=== PATIENT | female | born 1990 | race Caucasian/White ===

== ENCOUNTER 2020-01-19 08:55 | Emergency (ER) | payer MEDICAID, SELFPAY ==
[2020-01-19 08:57] VITALS: BP 170/99; PULSE 92; RESP 17; TEMP 35.7; O2SAT 99; BMI 34.3
--- NOTE | 2020-01-19 09:08 | W.ED.GENADLT ---
HPI - General Adult General: Chief complaint: General Medical Stated complaint: RIB PAIN Time Seen by Provider: 01/19/20 08:59 History of Present Illness: HPI narrative: Patient is a 29-year-old female who comes to the ED with anxiety and stress. Patient says that she is hypochondriac and over thinks some health problems. She recently had some ultrasound imaging performed due to amenorrhea and ultrasound showed some cysts on the ovaries. They were diagnosed as ovarian cysts (told they were not cancerous) and she was stressed and worried that they were actually cancerous. She comes here today because she says she is convinced herself that she has 2 sore spots on her ribs that could possibly be signs of cancer spreading. While patient is telling me all that she is stating how anxious she is and how she knows that this is not cancer but her anxiety and stress keeps worrying that it is cancer. Patient has been prescribed Xanax for anxiety and also was given a prescription for citalopram for anxiety as well but she has not started taking it yet. Rib pain is identified as one sore spot on the skin on the left side and another sore spot on the identical opposite side right rib. Denies any trauma or injury. Patient does say that she was wearing a bra that was probably a little too tight that could have caused some of this rib soreness. Associated symptoms: Deny chest pain, dyspnea, headache(s), nausea, rash, palpitations or vomiting Review of Systems Const: Denies: fever(s), chills or fatigue Eyes: Denies: change in vision or eye discomfort ENMT: Denies: throat pain, odynophagia, nasal discharge or nasal congestion Card: Denies: chest pain, palpitations, edema, swelling of feet/ankles, dyspnea on exertion or orthopnea Resp: Denies: dyspnea, productive cough or non-productive cough GI: Denies: abdominal pain, nausea, vomiting, diarrhea, constipation or hematochezia : Denies: flank pain, dysuria or hematuria Musc: Denies: neck pain, back pain or extremity swelling Skin/Breast: Denies: rash or new lesions Neuro: Denies: headache(s), numbness in extremities or weakness in extremities Psych: Reports: anxiety PFS ED PFSH: Medical History Blood type A+ Surgical History No pertinent past surgical history Family History Grandfather Hypertension paternal Diabetes paternal Grandmother Stroke paternal Other Heart disease Social History Smoking and tobacco status: current every day smoker cigarettes [ Other cigarette details: social smoker ] Alcohol intake: current Alcohol intake frequency: few times a month Physical Exam Narrative: EXAM NARRATIVE: Though was unable to palpate any lump or tender area on both right and left rib. During my exam patient even stated she is been convincing herself that she has this pain. He is very anxious and tearful telling me about her stress and worry about getting cancer. Const: COMMON NORMALS: no acute distress, patient oriented x3, healthy appearing and alert GENERAL APPEARANCE: anxious (Patient is very anxious and worried and is getting emotional talking about her worries and fears of cancer.) HENMT: COMMON NORMALS: normocephalic HEAD & SCALP: normocephalic MOUTH: Normal oral and palatal mucosa present THROAT: posterior oropharynx normal and uvula midline Neck/C-Spine: COMMON NORMALS: supple GENERAL: Yes normal visual inspection Resp: COMMON NORMALS: normal respiratory effort, No retractions, No use of accessory muscles and clear to auscultation bilaterally AUSCULTATION: clear to auscultation bilaterally Cardio: COMMON NORMALS: regular rate, regular rhythm, S1 normal heart sound present, S2 normal heart sound present, No gallops present (Cardio), No clicks present (Cardio), No murmurs present (Cardio) and Peripheral pulses 2+ throughout RATE: regular rate RHYTHM: regular rhythm HEART SOUNDS: S1 normal heart sound present and S2 normal heart sound present PERIPHERAL PULSES: Peripheral pulses 2+ throughout GI: COMMON NORMALS: Normal to inspection, nondistended, normoactive bowel sounds present, Soft to palpation, non-tender and no masses PALPATION: Yes Soft to palpation : COMMON NORMALS: Yes no CVA tenderness BLADDER/KIDNEY EXAM: Yes no CVA tenderness Back/Pelvis: COMMON NORMALS: no CVA tenderness Extremity: COMMON NORMALS: normal to inspection Neuro: COMMON NORMALS: patient oriented x3 and moves all extremities SENSORIUM/ORIENTATION: Yes alert Psych: COMMON NORMALS: mental status grossly normal and speech normal ACTIVITY/MOTOR BEHAVIOR: Yes appropriate eye contact SPEECH: Yes normal speech MOOD & AFFECT: Yes anxious, Yes sad and Yes tearful Skin: GENERAL SKIN EXAM: dry skin Course Vital Signs: Vital signs: Vital Signs Temperature 96.2 F L 01/19/20 08:57 Pulse Rate 80 01/19/20 09:36 Respiratory Rate 16 01/19/20 09:36 Blood Pressure 127/90 01/19/20 09:36 Pulse Oximetry 97 01/19/20 09:36 MDM - General Adult MDM Narrative: Medical decision making narrative: Patient is a 29-year-old female who is very anxious and worried and concerned that to a sore spot she feels on her left and right ribs are cancer. Denies any accident or trauma causing pain. Patient was having amenorrhea and recently had an ultrasound performed and it showed some noncancerous cysts on her ovaries. Patient has been worried that they are cancerous and now presents to the ED worrying that these 2 sore spots on her rib are signs that she has cancer and spreading. Physical exam was completely normal and unremarkable. Psych exam showed a patient that was sad anxious and tearful and she was very concerned and worried that she had cancer. Patient was reassured that her rib pain was benign. Patient has not been taking her prescribed citalopram for her anxiety and depression and I I encouraged her to start taking it. Also recommended that she follow-up with PCP in the next 7 to 10 days and to try implementing at least 20 to 30 minutes of cardiovascular exercise about 4 times a week to help with stress and anxiety. Return to ED precautions given. Patient understood and agreed with plan. Discharge Plan Discharge Patient Disposition: Home Clinical Impression: Anxiety about health Condition: Stable Prescriptions: No Action No Known Home Medications RF: 0 citalopram 10 mg tablet 10 mg PO DAILY Qty: 30 RF: 6 alprazolam 0.5 mg tablet 0.5 mg PO TID PRN (Reason: anxiety) Qty: 20 RF: 0 Discharge Orders: Discharge Order (Routine); Ordered 01/19/20 Ordered By: Chaitanya Ramsey Discharge Diet: Regular Discharge Activity: Resume usual activity Patient Instructions: Anxiety (ED) Activity Restrictions/Additional Instructions: Follow-up with medical provider as directed 7-10 days. Continue taking all home medications as prescribed. Fill your prescription for your anti-depression/anxiety med and take as directed. Try to do some cardiovascular exercise such as walking for 20 to 30 minutes a day 4 days a week to help with stress and anxiety. Return to the ER or your medical provider if condition worsens. Please read and understand discharge instructions. If any questions, please ask. 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
[2020-01-19 09:28] VITALS: BP 127/90; PULSE 84; RESP 18; O2SAT 98
[2020-01-19 09:36] VITALS: BP 127/90; PULSE 80; RESP 16; O2SAT 97
== END 2020-01-19 09:36 | disposition home or self-care (01) ==
PROVIDERS: Emergency Provider Physician Assistant
DX: F41.8 Other specified anxiety disorders (principal); F17.210 Nicotine dependence, cigarettes, uncomplicated
CPT/HCPCS: 12345; 99281

== ENCOUNTER → 2020-01-20 08:10 | Outpatient (BNVA) | payer MEDICAID, SELFPAY | PROVIDERS: Visit Provider Obstetrics & Gynecology | DX: N91.2 Amenorrhea, unspecified (principal) | CPT/HCPCS: 83001; 84146; 84443; 84450 ==

== ENCOUNTER 2020-01-21 07:38 | Emergency (ER) | payer MEDICAID, SELFPAY ==
[2020-01-21 07:50] VITALS: BMI 34.3
[2020-01-21 07:56] VITALS: BP 138/97; PULSE 96; RESP 16; TEMP 37.1; O2SAT 99
--- NOTE | 2020-01-21 07:59 | ECG_ITS ---
[facility] Test Date: 2020-01-21 Pat Name: Ana Cardona Department: Room: Gender: Female Pond Supervisor: : 1990 Requested By: Gabe Hong Order Number: [id number] Jean MD: Steff Cam M.D. Measurements Intervals [place]ardo Rate: 79 P: 40 IA: 163 QRS: -10 QRSD: 106 T: 29 QT: 395 QTc: 455 Interpretive Statements SINUS RHYTHM MINIMAL VOLTAGE CRITERIA FOR LVH, CONSIDER NORMAL VARIANT [MEETS CRITERIA IN ONE OF: R(aVL), S(V1), R(V5), R(V5/V6)+S(V1)] No previous ECG available for comparison Electronically Signed On 01-21-2020 21:22:48 CDT by Steff Cam M.D. [email or web address]
--- NOTE | 2020-01-21 08:00 | XR_ITS ---
WS: [id number] Portable AP upright chest, 01/21/2020 Clinical Data: dyspnea/cough Comparison: None. Findings: No nodules, masses or effusions are seen. The heart is normal. The pulmonary vascularity is not increased. No pneumonia or pneumothorax is seen. XR/XR chest 1V portable [id number] Impression: Negative chest.
[2020-01-21 08:28] LABS: Add Urine Microscopic? NO
[2020-01-21 08:28] LABS: Basophils % 0.4 %; Eosinophils # 0.2 10^3/uL (0.0-0.8); Eosinophils % 3.8 %; Hematocrit 41.2 % (37.0-47.0); Hemoglobin 13.6 g/dL (11.5-15.3); Lymphocytes # 1.5 10^3/uL (0.8-4.8); Lymphocytes % 30.1 %; Mean Corpuscular Hemoglobin 28.3 pg (28.0-34.0); Mean Corpuscular Volume 85.8 fL (81-99); Mean Platelet Volume 9.8 fL (7.4-10.4); Monocytes # 0.3 10^3/uL (0.2-0.9); Monocytes % 6.5 %; Neutrophils # 2.92 10^3/uL (1.8-7.7); Nucleated Red Blood Cells % 0 %; Platelet Count 188 10^3/cmm (130-400); Red Cell Distribution Width 11.8 % (12.1-15.1)
[2020-01-21 08:32] LABS: ABG PCO2 28.9 mmHg (35-45); ABG PH Result 7.49 (7.35-7.45); Arterial Blood Gas Hematocrit 44.5 % (37-47); Base Excess ABG -0.5 mmol/L (-2.0-2.0); Blood Gas Allen Test Pos; Blood Gas Sample Type Arterial; Carboxyhemoglobin 0.9 %THgb (0.4-20.1); HCO3 ABG 21.8 mmol/L (22-26); HGB O2 Sat 97.8 % (95-100); Ionized Calcium Level - ABG 1.2 mmol/L (1.1-1.4); Methemoglobin 0.8 % (0.4-1.5); Oxygen Saturation ABG 99.5; Total Hemoglobin 14.5 g/dL (12-16)
[2020-01-21 08:33] LABS: Blood Gas Sample Site Radial, left
[2020-01-21 08:36] VITALS: O2SAT 97
--- NOTE | 2020-01-21 08:36 | ED_ITS ---
HPI - Chest Pain General: Chief Complaint: Chest Pain Stated Complaint: left side pain Time Seen by Provider: 01/21/20 07:56 History of Present Illness: HPI narrative: 29-year-old female comes in to the ER, per her words I have convinced myself I have cancer. She admits to having a high degree of anxiety she has Xanax which she has not taken for it, she has also recently been prescribed another medication which she has not started because she had listened to the potential side effects and thought they were too serious to begin but she did cannot tell me the name of it. She is hyperventilating when I see her. She is not had any fever sweats or chills she has been frequently short of breath. She has chest pain which is worse with palpation. She is convinced she has some nodules and tender areas in the left breast that are cancer. MD complaint: chest pain Onset (ago): week(s) Timing of current episode: constant Prior episodes: Yes Onset: other (Palpation) Pain location: left chest Pain radiation: none Severity: moderate Quality: sharp Exacerbating factors: palpation Context: other (Anxiety) Associated symptoms: Reports sense of impending doom; Deny abdominal pain, diaphoresis, dyspnea, fever(s), leg edema, nausea, palpitations, syncope or vomiting Treatment prior to arrival: none Review of Systems Const: Denies: fever(s) or diaphoresis ENMT: Denies: throat pain, ear or mastoid pain, nasal discharge or nasal congestion Card: Denies: palpitations or syncope Resp: Denies: dyspnea GI: Denies: abdominal pain, nausea or vomiting : Denies: flank pain, difficulty voiding, dysuria, urinary frequency or urinary urgency Skin/Breast: Denies: rash or pruritus PFS ED PFSH: Medical History Blood type A+ Surgical History No pertinent past surgical history Family History Grandfather Hypertension paternal Diabetes paternal Grandmother Stroke paternal Other Heart disease Social History Smoking and tobacco status: current every day smoker cigarettes [ Other cigarette details: social smoker ] Alcohol intake: current Alcohol intake frequency: few times a month Female Reproductive History: Date of last menstrual period: 01/09/20 Physical Exam Const: COMMON NORMALS: no acute distress GENERAL APPEARANCE: cooperative and comfortable ORIENTATION/CONSCIOUSNESS: Yes awake, Yes oriented to person, Yes oriented to place and Yes oriented to time HENMT: COMMON NORMALS: normocephalic, atraumatic and hearing grossly normal bilaterally HEAD & SCALP: normocephalic and atraumatic Eye: COMMON NORMALS: Equal, round and reactive pupils present, EOMs intact bilaterally, conjunctivae normal and no scleral icterus CONJUNCTIVA: Yes conjunctivae normal PUPIL: Yes Equal, round and reactive pupils present Neck/C-Spine: COMMON NORMALS: full ROM, no lymphadenopathy, supple and no JVD Lymph: LYMPHATIC: no lymphadenopathy noted and no lymphedema noted Resp: COMMON NORMALS: normal respiratory effort, No retractions, No use of accessory muscles and clear to auscultation bilaterally AUSCULTATION: clear to auscultation bilaterally Cardio: COMMON NORMALS: no JVD, regular rate, regular rhythm and No murmurs present (Cardio) RATE: regular rate RHYTHM: regular rhythm GI: COMMON NORMALS: Soft to palpation and No hepatosplenomegaly present AUSCULTATION: Yes normoactive bowel sounds PALPATION: Yes Soft to palpation, No Tenderness to palpation present (GI), No Guarding due to palpation present (GI) and Yes No hepatosplenomegaly present Extremity: COMMON NORMALS: normal to inspection, capillary refill normal, no clubbing, cyanosis or edema, no calf tenderness and no pedal edema Neuro: SENSORIUM/ORIENTATION: Yes oriented to person, Yes oriented to place and Yes oriented to time Skin: COMMON NORMALS: no rashes or lesions noted GENERAL SKIN EXAM: no rashes or lesions noted Course Vital Signs: Vital signs: Vital Signs Temperature 98.7 F 01/21/20 07:56 Pulse Rate 90 01/21/20 11:15 Respiratory Rate 16 01/21/20 11:15 Blood Pressure 110/58 01/21/20 11:15 Pulse Oximetry 96 01/21/20 09:30 MDM - Chest Pain MDM Narrative: Medical decision making narrative: Reviewed findings with the patient's reassurance given however follow-up with primary care doctor reviewed blood gas findings she is indeed hyperventilating. Encouraged her to follow-up with her primary care doctor on treatments for anxiety. Lab Data: Labs: Lab Results 01/21/20 01/21/20 01/21/20 Range/Units 08:13 08:22 08:23 WBC (4.0-10.0) 10^3/ uL RBC (4.1-5.3) 10^6/u L Hgb (11.5-15.3) g/dL Hct (37.0-47.0) % MCV (81-99) fL MCH (28.0-34.0) pg MCHC (30.0-36.0) g/dL RDW (12.1-15.1) % Plt Count (130-400) 10^3/c mm MPV (7.4-10.4) fL Neut % (Auto) % Lymph % (Auto) % Campbell % (Auto) % Eos % (Auto) % Baso % (Auto) % Neut # (Auto) (1.8-7.7) 10^3/u L Lymph # (Auto) (0.8-4.8) 10^3/u L Campbell # (Auto) (0.2-0.9) 10^3/u L Eos # (Auto) (0.0-0.8) 10^3/u L Baso # (Auto) (0.0-0.1) 10^3/u L Nucleated RBC % (a uto) % Nucleated RBCs # /100WBC D-Dimer (0-0.59) ug/mIFE U Specimen Type Arterial Sample Site Radial, left ABG pH 7.49 H (7.35-7.45) ABG pCO2 28.9 L (35-45) mmHg ABG pO2 118.0 H (80.0-100.0) mmH g ABG HCO3 21.8 L (22-26) mmol/L ABG O2 Saturation 99.5 ABG Base Excess -0.5 (-2.0-2.0) mmol/ L Javi Test Pos A-a O2 Gradient Not Reportable Hematocrit 44.5 (37-47) % Hgb O2 Saturation 97.8 (95-100) % Carboxyhemoglobin 0.9 (0.4-20.1) %THgb Methemoglobin 0.8 (0.4-1.5) % Total Hemoglobin 14.5 (12-16) g/dL Sodium 142.0 (131-143) mmol/L Potassium 4.0 (3.5-5.0) mmol/L Glucose 118.0 H (70-115) mg/dL Ionized Calcium 1.2 (1.1-1.4) mmol/L O2 Delivery Device None FiO2 21.0 % Metal Baler ID Ed Chloride (98-107) mmol/L Carbon Dioxide (22-29) mmol/L Anion Gap (5-19) BUN (6-20) mg/dL Creatinine (0.5-0.9) mg/dL GFR Calculation (90-130) mL/min Calculated Osmolal ity (285-295) mOsm/k g Lactic Acid 1.5 (0.5-2.2) mmol/L Calcium (8.5-10.5) mg/dL Total Bilirubin (0.15-1.2) mg/dL AST (0-32) U/L ALT (0-33) U/L Alkaline Phosphata se (35-105) IU/L Creatine Kinase (26-192) U/L Total Protein (6.6-8.7) g/dL Albumin (3.5-5.2) g/dL Globulin (1.3-4.6) g/dL Lipase (13-60) U/L Urine Color Yellow (Yellow) Urine Appearance Clear (CLEAR) Urine pH 5.0 (5-7) Ur Specific Gravit y 1.025 (1.005-1.030) Urine Protein Neg (Negative) Urine Glucose (UA) Norm (Normal) Urine Ketones Negative (Negative) Urine Blood Neg (Negative) Urine Nitrate Negative (Negative) Urine Bilirubin Neg (NEGATIVE) Urine Urobilinogen Norm (Negative) mg/dL Ur Leukocyte Chrissy ase Negative (Negative) 01/21/20 01/21/20 01/21/20 Range/Units 08:23 08:23 08:23 WBC 5.0 (4.0-10.0) 10^3/ uL RBC 4.80 (4.1-5.3) 10^6/u L Hgb 13.6 (11.5-15.3) g/dL Hct 41.2 (37.0-47.0) % MCV 85.8 (81-99) fL MCH 28.3 (28.0-34.0) pg MCHC 33.0 (30.0-36.0) g/dL RDW 11.8 L (12.1-15.1) % Plt Count 188 (130-400) 10^3/c mm MPV 9.8 (7.4-10.4) fL Neut % (Auto) 59.0 % Lymph % (Auto) 30.1 % Campbell % (Auto) 6.5 % Eos % (Auto) 3.8 % Baso % (Auto) 0.4 % Neut # (Auto) 2.92 (1.8-7.7) 10^3/u L Lymph # (Auto) 1.5 (0.8-4.8) 10^3/u L Campbell # (Auto) 0.3 (0.2-0.9) 10^3/u L Eos # (Auto) 0.2 (0.0-0.8) 10^3/u L Baso # (Auto) 0.0 (0.0-0.1) 10^3/u L Nucleated RBC % (a uto) 0 % Nucleated RBCs # 0.0 /100WBC D-Dimer <= 0.27 (0-0.59) ug/mIFE U Specimen Type Sample Site ABG pH (7.35-7.45) ABG pCO2 (35-45) mmHg ABG pO2 (80.0-100.0) mmH g ABG HCO3 (22-26) mmol/L ABG O2 Saturation ABG Base Excess (-2.0-2.0) mmol/ L Javi Test A-a O2 Gradient Hematocrit (37-47) % Hgb O2 Saturation (95-100) % Carboxyhemoglobin (0.4-20.1) %THgb Methemoglobin (0.4-1.5) % Total Hemoglobin (12-16) g/dL Sodium 140 (131-143) mmol/L Potassium 4.0 (3.5-5.0) mmol/L Glucose 124 H (70-115) mg/dL Ionized Calcium (1.1-1.4) mmol/L O2 Delivery Device FiO2 % Metal Baler ID Chloride 105 (98-107) mmol/L Carbon Dioxide 23 (22-29) mmol/L Anion Gap 16.0 (5-19) BUN 14 (6-20) mg/dL Creatinine 0.7 (0.5-0.9) mg/dL GFR Calculation 98.9 (90-130) mL/min Calculated Osmolal ity 288 (285-295) mOsm/k g Lactic Acid (0.5-2.2) mmol/L Calcium 10.0 (8.5-10.5) mg/dL Total Bilirubin 0.7 (0.15-1.2) mg/dL AST 39 H (0-32) U/L ALT 68 H (0-33) U/L Alkaline Phosphata se 87 (35-105) IU/L Creatine Kinase 63 (26-192) U/L Total Protein 7.8 (6.6-8.7) g/dL Albumin 5.2 (3.5-5.2) g/dL Globulin 2.6 (1.3-4.6) g/dL Lipase 22 (13-60) U/L Urine Color (Yellow) Urine Appearance (CLEAR) Urine pH (5-7) Ur Specific Gravit y (1.005-1.030) Urine Protein (Negative) Urine Glucose (UA) (Normal) Urine Ketones (Negative) Urine Blood (Negative) Urine Nitrate (Negative) Urine Bilirubin (NEGATIVE) Urine Urobilinogen (Negative) mg/dL Ur Leukocyte Chrissy ase (Negative) Discharge Plan Discharge Patient Disposition: Home Clinical Impression: Anxiety about health, Acute hyperventilation Condition: Stable Prescriptions: No Action citalopram 10 mg tablet 10 mg PO DAILY Qty: 30 RF: 6 alprazolam 0.5 mg tablet 0.5 mg PO TID PRN (Reason: anxiety) Qty: 20 RF: 0 ibuprofen 200 mg Tablet 800 mg PO PRN RF: 0 progesterone See Rx Instructions .ROUTE .COMPLEX RF: 0 Discharge Diet: Usual diet Discharge Activity: Increase activity as tolerated Activity Restrictions/Additional Instructions: Follow-up with your primary care doctor as needed Discharge Date/Time: 01/21/20 11:20 Coding Level of Care Code ED Business Management Consultant for Oskar Fwd Exam Comprehensive
[2020-01-21 08:48] LABS: Lactic Sepsis W/Reflex 1.5 mmol/L (0.5-2.2)
[2020-01-21 08:52] LABS: Alanine Aminotransferase 68 U/L (0-33); Albumin Level 5.2 g/dL (3.5-5.2); Alkaline Phosphatase 87 IU/L (35-105); Aspartate Amino Transferase 39 U/L (0-32); Blood Urea Nitrogen 14 mg/dL (6-20); Carbon Dioxide 23 mmol/L (22-29); Chloride 105 mmol/L (98-107); Creatine Phosphokinase 63 U/L (26-192); Globulin 2.6 g/dL (1.3-4.6); Glomerular Filtration Rate 98.9 mL/min (90-130); Glucose 124 mg/dL (65-115); Lipase 22 U/L (13-60); Osmolality Calculated 288 mOsm/kg (285-295); Sodium 140 mmol/L (136-145); Total Bilirubin 0.7 mg/dL (0.15-1.2); Total Protein 7.8 g/dL (6.6-8.7)
[2020-01-21 08:55] LABS: Bilirubin Urine Neg (NEGATIVE); Blood Urine Neg (Negative); Glucose Urine UA Norm (Normal); Ketones Urine Negative (Negative); Leukocyte Esterase Urine Negative (Negative); Nitrate Urine Negative (Negative); Protein Urine Neg (Negative); Specific Gravity, Urine 1.025 (1.005-1.030); Urine Appearance Clear (CLEAR); Urine Color Yellow (Yellow); Urobilinogen Urine Norm (Negative)
[2020-01-21 09:30] VITALS: BP 131/78; PULSE 84; RESP 12; O2SAT 96
--- NOTE | 2020-01-21 09:31 | PC.NURSE ---
this nurse in room to place IV and give medications and pt refused all. ED physician notified.
[2020-01-21 09:33] LABS: D Dimer <= 0.27 ug/mIFEU (0-0.59)
[2020-01-21 10:32] LABS: Blood Gas Operator Identificat ED
[2020-01-21 10:33] VITALS: BP 132/92; PULSE 94; RESP 15
[2020-01-21 11:15] VITALS: BP 110/58; PULSE 90; RESP 16
== END 2020-01-21 11:20 | disposition home or self-care (01) ==
PROVIDERS: Emergency Provider Family Medicine
DX: F41.8 Other specified anxiety disorders (principal); R06.4 Hyperventilation; F17.210 Nicotine dependence, cigarettes, uncomplicated
CPT/HCPCS: 12345; 36415; 36600; 71045; 80051; 80053; 81003; 82550; 82810; 83605; 83690; 83986; 85025; 85378; 93005; 99282; 99284

== ENCOUNTER 2020-01-30 11:14 | Emergency (ER) | payer MEDICAID, SELFPAY ==
[2020-01-30 11:16] VITALS: BP 155/130; PULSE 97; RESP 18; TEMP 36.6; O2SAT 99; BMI 33.7
[2020-01-30 11:23] VITALS: PULSE 83; RESP 18; O2SAT 100
--- NOTE | 2020-01-30 11:31 | W.ED.GENADLT ---
HPI - General Adult General: Chief complaint: General Medical Stated complaint: LUMPS ON NECK Time Seen by Provider: 01/30/20 11:20 History of Present Illness: HPI narrative: Patient feels like she has swollen glands in her anterior neck. Has seen her PCP about it patient also recently started Celexa for anxiety via Dr. Gregorio DANIELLE complaint: Anxiety Onset (ago): day(s) Location: neck Associated symptoms: Deny chest pain, dyspnea, headache(s), nausea, rash or vomiting Review of Systems Narrative: Says she feels like she has enlarged nodes in the left side of her neck has seen her PCP who said follow-up later if they worsen Const: Denies: fever(s), chills or body aches Eyes: Denies: change in vision or blurry vision ENMT: Denies: throat pain or nasal congestion Card: Denies: chest pain or dyspnea on exertion Resp: Denies: dyspnea, productive cough or non-productive cough GI: Denies: abdominal pain, nausea or vomiting Musc: Denies: extremity pain Skin/Breast: Denies: rash Neuro: Denies: headache(s) Psych: Reports: anxiety (Currently on meds prescribed by Dr. Perkins); Denies: depression Louis/Lymph: Denies: easy bruising PFSH ED PFSH: Medical History (Updated 01/30/20 @ 11:30 by JARROD Gorman) Blood type A+ Surgical History No pertinent past surgical history Family History Grandfather Hypertension paternal Diabetes paternal Grandmother Stroke paternal Other Heart disease Social History Smoking and tobacco status: current every day smoker cigarettes [ Other cigarette details: social smoker ] Alcohol intake: current Alcohol intake frequency: few times a month Female Reproductive History: Date of last menstrual period: 01/09/20 Physical Exam Const: COMMON NORMALS: no acute distress, average body habitus and patient oriented x3 HENMT: COMMON NORMALS: normocephalic HEAD & SCALP: normal to inspection and normocephalic FACE & SINUS: normal facial exam Eye: COMMON NORMALS: conjunctivae normal GENERAL EYE: appearance normal, both eyes and all related structures CONJUNCTIVA: Yes conjunctivae normal Neck/C-Spine: COMMON NORMALS: no JVD OTHER: I do not feel any enlarged lymph glands glands appear bilaterally even nontender nonswollen Chest: COMMONS NORMALS: normal inspection of the chest Resp: COMMON NORMALS: normal respiratory effort and clear to auscultation bilaterally AUSCULTATION: clear to auscultation bilaterally Cardio: COMMON NORMALS: no JVD, regular rate and regular rhythm RATE: regular rate RHYTHM: regular rhythm GI: COMMON NORMALS: Normal to inspection, nondistended, normoactive bowel sounds present Extremity: COMMON NORMALS: normal to inspection and full ROM Neuro: COMMON NORMALS: patient oriented x3 Psych: MOOD & AFFECT: Yes anxious Course Vital Signs: Vital signs: Vital Signs Temperature 97.9 F 01/30/20 11:16 Pulse Rate 83 01/30/20 11:23 Respiratory Rate 18 01/30/20 11:23 Blood Pressure 155/130 01/30/20 11:16 Pulse Oximetry 100 01/30/20 11:23 Discharge Plan Discharge Patient Disposition: Home Clinical Impression: Anxiety about health Condition: Stable Prescriptions: New buspirone 10 mg tablet 10 mg PO BID Qty: 28 RF: 0 No Action citalopram 10 mg tablet 10 mg PO DAILY Qty: 30 RF: 6 alprazolam 0.5 mg tablet 0.5 mg PO TID PRN (Reason: anxiety) Qty: 20 RF: 0 ibuprofen 200 mg Tablet 800 mg PO PRN RF: 0 Discharge Orders: Discharge Order (Routine); Ordered 01/30/20 Ordered By: Bigg Ward Discharge Diet: Usual diet Discharge Activity: Increase activity as tolerated Patient Instructions: Anxiety (ED) Activity Restrictions/Additional Instructions: Follow-up with medical provider as directed. Take medications as prescribed. Return to the ER or your medical provider if condition worsens. Please read and understand discharge instructions. If any questions ask please. Follow-up with a behavioral health care counselor if at all possible Coding Level of Care Code ED Title I Paraprofessional for Oskar Fwd Exam Comprehensive
[2020-01-30 11:35] VITALS: BP 136/91; PULSE 79; RESP 18; O2SAT 97
== END 2020-01-30 11:35 | disposition home or self-care (01) ==
PROVIDERS: Emergency Provider Nurse Practitioner Family
DX: F41.9 Anxiety disorder, unspecified (principal); F17.210 Nicotine dependence, cigarettes, uncomplicated
CPT/HCPCS: 12345; 99281

== ENCOUNTER 2020-02-17 18:20 | Emergency (ER) | payer MEDICAID, SELFPAY ==
[2020-02-17 18:22] VITALS: BP 136/102; PULSE 98; RESP 16; TEMP 36.4; O2SAT 99; BMI 34.3
--- NOTE | 2020-02-17 18:36 | ED_ITS ---
HPI - Anxiety General: Chief Complaint: Anxiety Stated Complaint: swollen lymph node/ pain/bump under tongue Time Seen by Provider: 02/17/20 18:27 Source: patient Mode of arrival: ambulatory Limitations: no limitations History of Present Illness: HPI narrative: 29-year-old female states she been having left-sided neck pain for over a month and can feel a lump there. Patient states that her neck is sore and painful. She denies any difficulty swallowing. She states she has been very anxious over this and is seen multiple doctors. She had a scope done by ENT that was normal. She denies any fevers. Associated symptoms: Deny chest pain, chills, fever(s), headache(s), nausea or vomiting Review of Systems Const: Denies: fever(s), chills, body aches or change in appetite Eyes: Denies: blurry vision or eye discomfort ENMT: Denies: throat pain or dental pain Card: Denies: chest pain Resp: Denies: dyspnea GI: Denies: abdominal pain, nausea, vomiting or diarrhea : Denies: dysuria Musc: Reports: neck pain Skin/Breast: Denies: rash Neuro: Denies: headache(s) Psych: Denies: depression Louis/Lymph: Denies: easy bruising All/Imm: Denies: urticaria PFSH ED PFSH: Medical History Blood type A+ Surgical History No pertinent past surgical history Family History Grandfather Hypertension paternal Diabetes paternal Grandmother Stroke paternal Other Heart disease Social History Smoking and tobacco status: current every day smoker cigarettes [ Other cigarette details: social smoker ] Alcohol intake: current Alcohol intake frequency: few times a month Female Reproductive History: Date of last menstrual period: 01/09/20 Physical Exam Const: COMMON NORMALS: no acute distress, patient oriented x3 and healthy appearing HENMT: COMMON NORMALS: normocephalic and atraumatic HEAD & SCALP: normocephalic and atraumatic Eye: COMMON NORMALS: Equal, round and reactive pupils present and EOMs intact bilaterally PUPIL: Yes Equal, round and reactive pupils present Neck/C-Spine: COMMON NORMALS: full ROM and supple OTHER: No lymph nodes or masses noted on exam Chest: COMMONS NORMALS: normal inspection of the chest and normal palpation of entire chest wall Resp: COMMON NORMALS: normal respiratory effort, No retractions, No use of accessory muscles and clear to auscultation bilaterally AUSCULTATION: clear to auscultation bilaterally Cardio: COMMON NORMALS: regular rate, regular rhythm and No murmurs present (Cardio) RATE: regular rate RHYTHM: regular rhythm GI: COMMON NORMALS: Normal to inspection, nondistended, normoactive bowel sounds present, Soft to palpation, non-tender and no masses PALPATION: Yes Soft to palpation Extremity: COMMON NORMALS: normal to inspection and full ROM Neuro: COMMON NORMALS: patient oriented x3, moves all extremities and no focal motor deficits Psych: COMMON NORMALS: mental status grossly normal, Normal thought process present and cooperative THOUGHT PROCESS: Normal thought process present Skin: COMMON NORMALS: no rashes or lesions noted and no wounds GENERAL SKIN EXAM: no rashes or lesions noted Course Vital Signs: Vital signs: Vital Signs Temperature 97.6 F 02/17/20 18:22 Pulse Rate 83 02/17/20 18:41 Respiratory Rate 16 02/17/20 18:41 Blood Pressure 135/97 02/17/20 18:41 Pulse Oximetry 97 02/17/20 18:41 MDM - Anxiety MDM Narrative: Medical decision making narrative: Patient presents here with neck pain. Patient's exam here is benign and she has no signs of any masses. She has no signs of abscess. She has no difficulty breathing or swallowing. She is stable for discharge and return if worsening. Discharge Plan Discharge Patient Disposition: Home Clinical Impression: Anterior neck pain, Acute anxiety Condition: Stable Discharge Orders: Discharge Order (Routine); Ordered 02/17/20 Ordered By: Jude Hendricks Discharge Diet: Advance as tolerated Discharge Activity: Resume usual activity Patient Instructions: Anxiety (ED) Coding Level of Care Code ED Residential Leasing Manager for Chg Fwd Exam Comprehensive
[2020-02-17 18:41] VITALS: BP 135/97; PULSE 83; RESP 16; O2SAT 97
== END 2020-02-17 19:07 | disposition home or self-care (01) ==
PROVIDERS: Emergency Provider Emergency Medicine
DX: F41.9 Anxiety disorder, unspecified (principal); M54.2 Cervicalgia; F17.210 Nicotine dependence, cigarettes, uncomplicated
CPT/HCPCS: 12345; 99282

== ENCOUNTER 2020-02-21 15:06 | Emergency (ER) | payer MEDICAID, SELFPAY ==
[2020-02-21 15:12] VITALS: BP 150/100; PULSE 105; RESP 18; TEMP 36.7; O2SAT 99; BMI 34.3
--- NOTE | 2020-02-21 15:46 | ED_ITS ---
HPI - General Adult General: Chief complaint: Headache Stated complaint: HEAD PAIN Time Seen by Provider: 02/21/20 15:21 Source: patient Mode of arrival: ambulatory Limitations: no limitations History of Present Illness: HPI narrative: Patient is a 29-year-old female who presents to ED today with a complaint of a lump in her mouth and lumps to the left side of her neck. Patient was seen here on 01/29, 02/02, 02/16 all for similar complaints. She has other visits to the emergency department for complaints of similar lumps to her ribs and breasts. Patient tells me she has convinced herself that all of these are cancerous. Patient tells me 2 weeks ago she had a scope performed by Dr. Tim. Their office is supposed to be setting her up with a CT scan of her neck. Patient tells me she has severe anxiety and has been poking the nodules in the left side of her neck 60 times a day . Associated symptoms: Deny chest pain, dyspnea, headache(s), nausea or vomiting Review of Systems Const: Denies: fever(s), chills, body aches, change in appetite, change in weight, fatigue or night sweats Eyes: Denies: change in vision, blurry vision, photophobia, floaters or seeing flashes ENMT: Denies: throat pain, enlarged tonsils, odynophagia, mouth pain, swelling of lips/tongue, oral sores, dental pain, ear discharge, change in hearing, tinnitus, nasal discharge, nasal congestion or post nasal drip Card: Denies: chest pain Resp: Denies: dyspnea GI: Denies: nausea or vomiting Skin/Breast: Reports: other ( lumps in neck ) Neuro: Denies: headache(s), numbness in extremities, weakness in extremities or sensory changes Psych: Reports: anxiety PFSH ED PFSH: Medical History (Updated 02/21/20 @ 15:46 by HARIS Flores) Blood type A+ Surgical History No pertinent past surgical history Family History Grandfather Hypertension paternal Diabetes paternal Grandmother Stroke paternal Other Heart disease Social History Smoking and tobacco status: current every day smoker cigarettes [ Other cigarette details: social smoker ] Alcohol intake: current Alcohol intake frequency: few times a month Female Reproductive History: Date of last menstrual period: 01/09/20 Physical Exam Const: COMMON NORMALS: no acute distress, patient oriented x3, no limitations and alert GENERAL APPEARANCE: cooperative and anxious HENMT: COMMON NORMALS: normocephalic, atraumatic, hearing grossly normal bilaterally, EAC's normal, TM's normal bilaterally, Normal external nose present, Normal nasal mucous membranes and turbinates present, moist oral mucous membranes, oropharynx normal and gingiva normal HEAD & SCALP: normal to inspection, normocephalic and atraumatic FACE & SINUS: normal facial exam and sinuses nontender NOSE: Normal external nose present and Normal nasal mucous membranes and turbinates present EXTERNAL AUDITORY CANAL: EAC's normal TYMPANIC MEMBRANE: TM's normal bilaterally MOUTH: Normal oral and palatal mucosa present, lip normal and tongue normal THROAT: posterior oropharynx normal, tonsils normal and uvula midline Eye: COMMON NORMALS: Equal, round and reactive pupils present, EOMs intact bilaterally and no scleral icterus GENERAL EYE: appearance normal, both eyes and all related structures PUPIL: Yes Equal, round and reactive pupils present Neck/C-Spine: COMMON NORMALS: full ROM, no lymphadenopathy and no meningeal signs GENERAL: Yes normal visual inspection OTHER: I do not appreciate any lumps or nodules to her neck Neuro: COMMON NORMALS: patient oriented x3 SENSORIUM/ORIENTATION: Yes alert MENINGEAL SIGNS: Yes no meningeal signs Skin: COMMON NORMALS: no rashes or lesions noted GENERAL SKIN EXAM: no rashes or lesions noted Course Vital Signs: Vital signs: Vital Signs Temperature 98.0 F 02/21/20 15:12 Pulse Rate 105 H 02/21/20 15:12 Respiratory Rate 18 02/21/20 15:12 Blood Pressure 150/100 02/21/20 15:12 Pulse Oximetry 99 02/21/20 15:12 MDM - General Adult MDM Narrative: Medical decision making narrative: will have pt continue to follow up with PCP and Dr. Tim for outpatient CT scan if he wishes; I do not appreciate any abnormalities on her physical exam today Discharge Plan Discharge Patient Disposition: Home Clinical Impression: Anxiety about health Condition: Stable Prescriptions: No Action alprazolam 0.5 mg tablet 0.5 mg PO TID PRN (Reason: Anxiety) RF: 0 Discharge Orders: Discharge Order (Routine); Ordered 02/21/20 Ordered By: Radha Birmingham Activity Restrictions/Additional Instructions: As discussed you can continue to followup with Dr. Tim's office and obtain CT imaging if they felt indicated. Discharge Date/Time: 02/21/20 15:47 Coding Level of Care Code ED Pneumatic Deicer Inspector for Oskar Jean
== END 2020-02-21 15:47 | disposition home or self-care (01) ==
PROVIDERS: Emergency Provider Physician Assistant
DX: F41.8 Other specified anxiety disorders (principal); F17.210 Nicotine dependence, cigarettes, uncomplicated
CPT/HCPCS: 12345; 99281

== ENCOUNTER 2020-03-04 20:00 | Emergency (ER) | payer MEDICAID, SELFPAY ==
[2020-03-04 20:18] VITALS: BP 136/91; PULSE 96; RESP 14; TEMP 36.9; O2SAT 95; BMI 34.3
--- NOTE | 2020-03-04 20:26 | ED_ITS ---
HPI - Neck Pain/Injury General: Chief Complaint: Neck Pain/Injury Stated Complaint: Neck Pain/Left side Time Seen by Provider: 03/04/20 20:26 Source: patient Mode of arrival: ambulatory Limitations: no limitations History of Present Illness: HPI Narrative: Patient comes in with left anterior cervical lymphadenopathy and tenderness. Patient reports noticing a bump along her left submandibular jaw. It is tender to touch. Patient also reports some drainage in her throat. And some left ear pain. Patient appears well. Patient is afebrile. No acute distress is noted. Review of Systems General: Reports: 10 or more systems reviewed and unremarkable except in HPI and below ENMT: Reports: other (Anterior neck discomfort) [facility] ED PFSH: Medical History (Updated 03/04/20 @ 20:43 by JARROD Hamlin) Blood type A+ Surgical History No pertinent past surgical history Family History Grandfather Hypertension paternal Diabetes paternal Grandmother Stroke paternal Other Heart disease Social History Smoking and tobacco status: current every day smoker cigarettes [ Other c igarette details: social smoker ] Alcohol intake: current Alcohol intake frequency: few times a month Female Reproductive History: Date of last menstrual period: 01/09/20 Physical Exam Const: COMMON NORMALS: no acute distress and patient oriented x3 GENERAL APPEARANCE: cooperative HENMT: COMMON NORMALS: normocephalic, TM's normal bilaterally and Normal external nose present HEAD & SCALP: normal to inspection and normocephalic NOSE: Normal external nose present TYMPANIC MEMBRANE: TM's normal bilaterally MOUTH: Normal oral and palatal mucosa present THROAT: posterior oropharynx normal Eye: GENERAL EYE: appearance normal, both eyes and all related structures Neck/C-Spine: COMMON NORMALS: full ROM Lymph: LYMPHATIC: no lymphadenopathy noted Chest: COMMONS NORMALS: normal inspection of the chest Resp: COMMON NORMALS: normal respiratory effort EFFORT & INSPECTION: Yes able to speak in complete sentences Cardio: COMMON NORMALS: regular rate and regular rhythm RATE: regular rate RHYTHM: regular rhythm GI: COMMON NORMALS: non-tender : COMMON NORMALS: Yes no CVA tenderness BLADDER/KIDNEY EXAM: Yes no CVA tenderness Back/Pelvis: COMMON NORMALS: no CVA tenderness and thoracic and lumbar spine normal to inspection Extremity: COMMON NORMALS: normal to inspection Neuro: COMMON NORMALS: patient oriented x3 and moves all extremities Psych: COMMON NORMALS: mental status grossly normal and cooperative Skin: COMMON NORMALS: no rashes or lesions noted GENERAL SKIN EXAM: no rashes or lesions noted Course Vital Signs: Vital signs: Vital Signs Temperature 98.4 F 03/04/20 20:18 Pulse Rate 96 03/04/20 20:18 Respiratory Rate 14 03/04/20 20:18 Blood Pressure 136/91 03/04/20 20:18 Pulse Oximetry 95 03/04/20 20:18 MDM - Neck Pain/Injury MDM Narrative: Medical decision making narrative: Patient comes in today with some left anterior lymphadenopathy and has. On exam posterior pharynx shows some pharyngeal streaking due to clear drainage. Bilateral tympanic membranes dull. No signs of serious illness or injury. Differential diagnosis includes lymphadenitis, sinusitis, pharyngitis, viral syndrome. Reviewed exam with patient with recommendations for treatment and follow-up. Patient reported understanding agreed to plan. Discharge Plan Discharge Patient Disposition: Home Clinical Impression: Lymphadenopathy, cervical, Post-nasal drip Condition: Stable Prescriptions: New azithromycin 250 mg tablet 250 mg PO DAILY 4 Days RF: 0 fluticasone propionate 50 mcg/actuation spray,suspension 1 spray INTRANASAL BID Qty: 15.8 RF: 0 levocetirizine 5 mg tablet 5 mg PO DAILY Qty: 20 RF: 0 No Action alprazolam 0.5 mg tablet 0.5 mg PO TID PRN (Reason: Anxiety) RF: 0 Discharge Orders: Discharge Order (Routine); Ordered 03/04/20 Ordered By: Gabriel Byers Discharge Diet: Usual diet Discharge Activity: Resume usual activity Patient Instructions: Lymphadenopathy (ED) Activity Restrictions/Additional Instructions: Drink plenty of fluids. Take medications as directed. Follow-up with primary care for reevaluation. Return to the emergency department for new concerns. Discharge Date/Time: 03/04/20 21:07 Coding Level of Care Code ED Steel Placer for Oskar Fwsisi Exam Comprehensive
[2020-03-04] MEDS: dexamethasone 4 mg Tablet 8 MG PO (21:01)
[2020-03-04] MEDS: azithromycin 250 mg Tablet 500 MG PO (21:01)
== END 2020-03-04 21:07 | disposition home or self-care (01) ==
PROVIDERS: Emergency Provider Nurse Practitioner Family
DX: R59.1 Generalized enlarged lymph nodes (principal); R09.82 Postnasal drip; F17.210 Nicotine dependence, cigarettes, uncomplicated
CPT/HCPCS: 12345; 99281; 99283; J8540; Q0144

== ENCOUNTER 2020-03-05 07:39 | Outpatient (CLI) | payer MEDICAID, SELFPAY ==
--- NOTE | 2020-03-05 07:45 | CT_ITS ---
WS: [id number] CT NECK WITH CONTRAST HISTORY: ENLARGED LYMPH NODES TECHNIQUE: Contiguous 5 mm axial images are performed through the neck with intravenous contrast. Sag ittal and coronal reformats are also submitted. All CT scans at [facility] use at least o ne of these dose optimization techniques: automated exposure control; mA and/or kV adjustment per pat ient size (includes targeted exams where dose is matched to clinical indication); or iterative recons truction. CONTRAST: CONTRAST: Omnipaque 300; 95 mL IV. DLP: 2342.73 mGycm COMPARISON: None available. Nasopharynx, oropharynx, hypopharynx and larynx are unremarkable. No soft tissue masses or abnormal e nhancement. Torus tubarius and fossa of Rosenmuller and parapharyngeal fat are normal. Minimally enlarged but less than 1 cm cervical chain lymph nodes. LEFT level IIa lymph node is the la rgest with maximum diameter of 8 mm. No necrosis. There are additional smaller bilateral cervical argenis in lymph nodes. Bilateral level Ia and Ib lymph nodes measure up to 6 mm. Thyroid gland and salivary glands are normally enhancing with no masses. Swallowing artifact through the lower neck causing misregistration of the cervical spine. Visualized portions of the skull base demonstrate no abnormalities. Orbits and globes are within norm al limits. No soft tissue masses. Visualized paranasal sinuses and mastoid air cells are normal. Lung apices are clear. CT/CT neck w con* [id number] IMPRESSION: 1. No pathologically enlarged cervical chain lymph nodes. 2. Bilateral cervical chain lymph nodes are top normal size but there is no ev idence for necrosis or hyperemia. Largest lymph nodes at level I and level II.
[2020-03-05] MEDS: iohexol 300 mg/mL 100 mL Btl IV (08:17)
== END 2020-03-05 07:40 | disposition home or self-care (01) ==
LOC: RADWPI 07:42
PROVIDERS: PCP Nurse Practitioner; Visit Provider Specialist
DX: R59.0 Localized enlarged lymph nodes (principal)
CPT/HCPCS: 70491; Q9967

== ENCOUNTER → 2020-03-18 13:17 | Outpatient (BNVA) | payer MEDICAID, SELFPAY | PROVIDERS: PCP Nurse Practitioner; Visit Provider Obstetrics & Gynecology | DX: R79.89 Other specified abnormal findings of blood chemistry (principal) | CPT/HCPCS: 84146 ==

== ENCOUNTER 2020-06-07 18:49 | Emergency (ER) | payer MEDICAID, SELFPAY ==
[2020-06-07 18:57] VITALS: BP 147/92; PULSE 82; RESP 18; TEMP 36.9; O2SAT 98; BMI 34.3
--- NOTE | 2020-06-07 19:45 | ED_ITS ---
HPI - Wound/Laceration General: Chief Complaint: Wound/Laceration Stated Complaint: lac on left calf Time Seen by Provider: 06/07/20 19:45 History of Present Illness: HPI narrative: Patient is a 30-year-old female comes to the ED with a laceration on left calf. Patient says just prior to arrival she was taking her trash out and a piece of glass from the trash bag cut her left leg. Patient says she needs an updated tetanus shot. Associated symptoms: Denies chills, fever(s), nausea or vomiting Review of Systems Const: Denies: fever(s), chills or fatigue Eyes: Denies: change in vision or eye discomfort ENMT: Denies: throat pain, odynophagia, nasal discharge or nasal congestion Card: Denies: chest pain, palpitations, edema, swelling of feet/ankles, dyspnea on exertion or orthopnea Resp: Denies: dyspnea, productive cough or non-productive cough GI: Denies: abdominal pain, nausea, vomiting, diarrhea, constipation or hematochezia : Denies: flank pain, dysuria or hematuria Musc: Denies: neck pain, back pain or extremity swelling Skin/Breast: Reports: new lesions (1 cm laceration to left calf anterior side); Denies: rash Neuro: Denies: headache(s), numbness in extremities or weakness in extremities PFS ED PFSH: Medical History Blood type A+ Surgical History No pertinent past surgical history Family History Grandfather Hypertension paternal Diabetes paternal Grandmother Stroke paternal Other Heart disease Social History Smoking and tobacco status: current every day smoker cigarettes [ Other cigarette details: social smoker ] Alcohol intake: current Alcohol intake frequency: few times a month Current gender identity: Female Female Reproductive History: Date of last menstrual period: 04/12/20 Physical Exam Const: COMMON NORMALS: no acute distress, patient oriented x3 and alert GENERAL APPEARANCE: cooperative and comfortable HENMT: COMMON NORMALS: normocephalic HEAD & SCALP: normocephalic MOUTH: Normal oral and palatal mucosa present THROAT: posterior oropharynx normal and uvula midline Neck/C-Spine: COMMON NORMALS: supple GENERAL: Yes normal visual inspection Resp: COMMON NORMALS: normal respiratory effort, No retractions, No use of accessory muscles and clear to auscultation bilaterally AUSCULTATION: clear to auscultation bilaterally Cardio: COMMON NORMALS: regular rate, regular rhythm, S1 normal heart sound present, S2 normal heart sound present, No gallops present (Cardio), No clicks present (Cardio), No murmurs present (Cardio) and Peripheral pulses 2+ throughout RATE: regular rate RHYTHM: regular rhythm HEART SOUNDS: S1 normal heart sound present and S2 normal heart sound present PERIPHERAL PULSES: Peripheral pulses 2+ throughout GI: COMMON NORMALS: Normal to inspection, nondistended, normoactive bowel s ounds present, Soft to palpation, non-tender and no masses PALPATION: Yes Soft to palpation : COMMON NORMALS: Yes no CVA tenderness BLADDER/KIDNEY EXAM: Yes no CVA tenderness Back/Pelvis: COMMON NORMALS: no CVA tenderness Extremity: NARRATIVE EXTREMITY EXAM: 1 cm superficial linear laceration to a nterior aspect of left calf. GENERAL: Yes normal exam except as noted Neuro: COMMON NORMALS: patient oriented x3 and moves all extremities SENSORIUM/ORIENTATION: Yes alert Skin: NARRATIVE SKIN EXAM: Superficial 1 cm linear laceration to anterior aspect left calf. No active bleeding or contamination. Procedures Laceration Laceration 1: Site: lower extremity (anterior aspect of left calf) Side (If applicable): left Size (cm): 1 Description: linear and clean Depth: simple, single layer Local Anesthetic: lidocaine 1% and with epi Amount of anesthesia used (mL): 10 Pre-repair: irrigated extensively (With normal saline and surrounding skin cleaned with alcohol swab.) Skin layer closed with: vicryl Size (cm): 4-0 Number of sutures: 3 Course Vital Signs: Vital signs: Vital Signs Temperature 98.4 F 06/07/20 18:57 Pulse Rate 82 06/07/20 18:57 Respiratory Rate 18 06/07/20 18:57 Blood Pressure 147/92 06/07/20 18:57 Pulse Oximetry 98 06/07/20 18:57 MDM - Wound/Laceration MDM Narrative: Medical decision making narrative: Patient is a 30-year-old female comes to the ED with superficial laceration on left calf. Laceration was closed with 3 absorbable sutures and local lidocaine with epi used. Patient need an updated tetanus and received it here in the ED tonight. She was discharged home on a prophylactic antibiotic due to laceration coming from glass in her trash. Return to ED precautions given. She was given instructions on how to care for laceration site while healing. Follow-up with PCP in 10 days for reevaluation. Patient is to agree with plan. Discharge Plan Discharge Patient Disposition: Home Clinical Impression: Laceration Condition: Stable Prescriptions: New cephalexin 500 mg capsule 500 mg PO QID 3 Days Qty: 12 RF: 0 No Action alprazolam 0.5 mg tablet 0.5 mg PO TID PRN (Reason: Anxiety) RF: 0 fluticasone propionate 50 mcg/actuation spray,suspension 1 spray INTRANASAL BID Qty: 15.8 RF: 0 levocetirizine 5 mg tablet 5 mg PO DAILY Qty: 20 RF: 0 Discharge Orders: Discharge ED (Routine); Ordered 06/07/20 Ordered By: Chaitanya Ramsey Referrals: Perico Acevedo FNP [Primary Care Provider] - Discharge Diet: Regular Discharge Activity: Limit activity as instructed Patient Instructions: Laceration (ED), Absorbable Suture Care (ED) Activity Restrictions/Additional Instructions: Take full course of antibiotics as prescribed. Keep laceration site clean and dry for the next 48 hours. Then after that you can clean and re-bandage daily. Watch for signs of infection such as redness, warmth, increased tenderness and puslike drainage. If you see the signs of infection return to the ED, urgent care or PCP for reevaluation. call your PCP to schedule a follow-up appointment for reevaluation in 10 days. Continue taking all home meds. Follow discharge plans as discussed. You can return to the ED if symptoms worsen. Coding Level of Care Code ED Carton Making Machine Operator for Oskar Jean Exam Comprehensive
[2020-06-07] MEDS: tetanus-dipt-pertussis 0.5 mL SDV IM (19:52)
[2020-06-07 20:24] VITALS: RESP 16
== END 2020-06-07 20:25 | disposition home or self-care (01) ==
PROVIDERS: Emergency Provider Physician Assistant; PCP Nurse Practitioner
DX: S81.812A Laceration without foreign body, left lower leg, initial encounter (principal); W25.XXXA Contact with sharp glass, initial encounter; F17.210 Nicotine dependence, cigarettes, uncomplicated; Z23 Encounter for immunization
CPT/HCPCS: 12001; 12345; 90715; 99281; 99282

== ENCOUNTER 2020-07-06 12:53 | Emergency (ER) | payer MEDICAID, SELFPAY ==
[2020-07-06 13:00] VITALS: BP 150/97; PULSE 93; RESP 18; TEMP 36.8; O2SAT 98; BMI 34.8
--- NOTE | 2020-07-06 13:14 | W.ED.GENADLT ---
HPI - General Adult General: Chief complaint: General Medical Stated complaint: BUMPS IN MOUTH, L SHOULDER PAIN Time Seen by Provider: 07/06/20 13:05 History of Present Illness: HPI narrative: Patient in here concerned about what she feels is bumps underneath her tongue been present for a few months to come and go. And then having some left shoulder pain last couple days. Patient recently started on Celexa on Sunday for her OCD anxiety problems she has. But patient denies any foul taste smell drainage from these bumps said only she can feel them. And she also has her shoulder just hurts with some range of motion but no known injury. Onset (ago): month(s) Severity: mild Associated symptoms: Deny chest pain, dyspnea, headache(s), nausea, rash or vomiting Review of Systems Const: Denies: fever(s), chills or body aches Eyes: Denies: change in vision or blurry vision ENMT: Reports: other (Says she can feel bumps underneath her tongue.); Denies: throat pain or nasal congestion Card: Denies: chest pain or dyspnea on exertion Resp: Denies: dyspnea, productive cough or non-productive cough GI: Denies: abdominal pain, nausea or vomiting Musc: Reports: joint pain (Left shoulder hurts at times last couple days.); Denies: extremity pain Skin/Breast: Denies: rash Neuro: Denies: headache(s) Psych: Reports: anxiety; Denies: depression Louis/Lymph: Denies: easy bruising [facility] ED PFSH: Medical History (Updated 07/06/20 @ 13:13 by JARROD Gorman) Blood type A+ Surgical History No pertinent past surgical history Family History Grandfather Hypertension paternal Diabetes paternal Grandmother Stroke paternal Other Heart disease Social History Smoking and tobacco status: current every day smoker cigarettes [ Other cigarette details: social smoker ] Alcohol intake: current Alcohol intake frequency: few times a month Current gender identity: Female Female Reproductive History: Date of last menstrual period: 04/12/20 Physical Exam Const: COMMON NORMALS: no acute distress, average body habitus and patient oriented x3 HENMT: COMMON NORMALS: normocephalic HEAD & SCALP: normal to inspection and normocephalic FACE & SINUS: normal facial exam TEETH & GINGIVA: Yes other (Mouth looks completely normal saliva get glands look normal no swelling no ) Eye: COMMON NORMALS: conjunctivae normal GENERAL EYE: appearance normal, both eyes and all related structures CONJUNCTIVA: Yes conjunctivae normal Neck/C-Spine: COMMON NORMALS: no JVD Chest: COMMONS NORMALS: normal inspection of the chest Resp: COMMON NORMALS: normal respiratory effort and clear to auscultation bilaterally AUSCULTATION: clear to auscultation bilaterally Cardio: COMMON NORMALS: no JVD, regular rate and regular rhythm RATE: regular rate RHYTHM: regular rhythm GI: COMMON NORMALS: Normal to inspection, nondistended, normoactive bowel sounds present Extremity: COMMON NORMALS: normal to inspection and full ROM LEFT UPPER EXTREMITY: Yes shoulder joint (Peers intact no swelling no range of motion problems distal neurovascular i) Neuro: COMMON NORMALS: patient oriented x3 Course Vital Signs: Vital signs: Vital Signs Temperature 98.2 F 07/06/20 13:00 Pulse Rate 93 07/06/20 13:00 Respiratory Rate 18 07/06/20 13:00 Blood Pressure 150/97 07/06/20 13:00 Pulse Oximetry 98 07/06/20 13:00 Discharge Plan Discharge Patient Disposition: Home Clinical Impression: Anxiety about health Condition: Stable Prescriptions: No Action alprazolam 0.5 mg tablet 0.5 mg PO TID PRN (Reason: Anxiety) RF: 0 fluticasone propionate 50 mcg/actuation spray,suspension 1 spray INTRANASAL BID Qty: 15.8 RF: 0 levocetirizine 5 mg tablet 5 mg PO DAILY Qty: 20 RF: 0 Discharge Orders: Discharge ED (Routine); Ordered 07/06/20 Ordered By: Bigg Ward Discharge Diet: Usual diet Discharge Activity: Resume usual activity Patient Instructions: Obsessive Compulsive Disorder (GEN) Activity Restrictions/Additional Instructions: Follow-up with your family medical provider as needed. Coding Level of Care Code ED Employee Benefits Specialist for Oskar Jean
[2020-07-06 13:39] VITALS: RESP 18; TEMP 36.8; O2SAT 98
== END 2020-07-06 13:39 | disposition home or self-care (01) ==
PROVIDERS: Emergency Provider Nurse Practitioner Family
DX: F41.8 Other specified anxiety disorders (principal); F17.210 Nicotine dependence, cigarettes, uncomplicated
CPT/HCPCS: 12345; 99281

== ENCOUNTER 2020-08-09 09:52 | Emergency (ER) | payer MEDICAID, SELFPAY ==
[2020-08-09 09:56] VITALS: BP 153/98; PULSE 86; RESP 16; TEMP 36.5; O2SAT 98; BMI 35.6
--- NOTE | 2020-08-09 10:11 | W.ED.ALLEREA ---
HPI - Allergic Reaction General: Chief complaint: Allergic Reaction Stated complaint: POSS ALLERGIC REACTION/SPREADING WELPS Time Seen by Provider: 08/09/20 09:54 History of Present Illness: HPI narrative: Patient is a 30-year-old female comes to the ED with multiple lesions on body. Patient says she started developing these itchy welts approximately 2 weeks ago. She has seen a provider for the same problem over a week ago and they thought it was bedbugs. Patient did not think it was bedbugs and says she continues to get these itchy welts all throughout her body. She has some on her left lower leg and ankle. She also has lesions on her abdomen arms neck and face. Patient denies any recent change in lotions, soaps, detergents or perfumes. She did state that her son had similar like lesions a week ago and they have resolved. Patient denies any trouble breathing, nausea/vomiting, fever, diarrhea. Associated symptoms: Deny abdominal pain, nausea or vomiting Review of Systems Const: Denies: fever(s), chills or fatigue Eyes: Denies: change in vision or eye discomfort ENMT: Denies: throat pain, odynophagia, nasal discharge or nasal congestion Card: Denies: chest pain, palpitations, edema, swelling of feet/ankles, dyspnea on exertion or orthopnea Resp: Denies: dyspnea, productive cough or non-productive cough GI: Denies: abdominal pain, nausea, vomiting, diarrhea, constipation or hematochezia : Denies: flank pain, dysuria or hematuria Musc: Denies: neck pain, back pain or extremity swelling Skin/Breast: Reports: new lesions (Many pruritic circular raised welts all over patient's body.); Denies: rash Neuro: Denies: headache(s), numbness in extremities or weakness in extremities PFSH ED PFSH: Medical History Blood type A+ Surgical History No pertinent past surgical history Family History Grandfather Hypertension paternal Diabetes paternal Grandmother Stroke paternal Other Heart disease Social History Smoking and tobacco status: former smoker Quit status (tobacco): has quit using tobacco Year quit tobacco: 2014 Former quit date comment: .5 pack per day for 2 years Second hand smoke exposure: Yes Alcohol intake: current Alcohol intake frequency: holidays/special occasions only Marital status: Current occupational status: unemployed Current gender identity: Female Special grzegorz needs: No Female Reproductive History: Date of last menstrual period: 04/12/20 Physical Exam Const: COMMON NORMALS: no acute distress, patient oriented x3, healthy appearing and alert GENERAL APPEARANCE: cooperative and comfortable HENMT: COMMON NORMALS: normocephalic HEAD & SCALP: normocephalic FACE & SINUS: other (Patient has 2 pruritic raised lesions on the right mandible of face.) MOUTH: Normal oral and palatal mucosa present THROAT: posterior oropharynx normal and uvula midline Neck/C-Spine: COMMON NORMALS: supple GENERAL: Yes normal visual inspection Resp: COMMON NORMALS: normal respiratory effort, No retractions, No use of accessory muscles and clear to auscultation bilaterally AUSCULTATION: clear to auscultation bilaterally Cardio: COMMON NORMALS: regular rate, regular rhythm, S1 normal heart sound present, S2 normal heart sound present, No gallops present (Cardio), No clicks present (Cardio), No murmurs present (Cardio) and Peripheral pulses 2+ throughout RATE: regular rate RHYTHM: regular rhythm HEART SOUNDS: S1 normal heart sound present and S2 normal heart sound present PERIPHERAL PULSES: Peripheral pulses 2+ throughout GI: COMMON NORMALS: Normal to inspection, nondistended, normoactive bowel sounds present, Soft to palpation, non-tender and no masses PALPATION: Yes Soft to palpation : COMMON NORMALS: Yes no CVA tenderness BLADDER/KIDNEY EXAM: Yes no CVA tenderness Back/Pelvis: COMMON NORMALS: no CVA tenderness Extremity: COMMON NORMALS: normal to inspection and no pedal edema Neuro: COMMON NORMALS: patient oriented x3 and moves all extremities SENSORIUM/ORIENTATION: Yes alert Skin: NARRATIVE SKIN EXAM: Patient has multiple welt-like circular lesions of varying sizes on left lower extremity, abdomen, right and left arm, neck face. Lesions are pruritic and not painful. Findings suggestive of bedbug bites. Course Vital Signs: Vital signs: Vital Signs Temperature 97.7 F 08/09/20 09:56 Pulse Rate 75 08/09/20 10:47 Respiratory Rate 13 03/01/21 10:47 Blood Pressure 120/78 08/09/20 10:47 Pulse Oximetry 98 08/09/20 10:47 MDM - Allergic Reaction MDM Narrative: Medical decision making narrative: Patient is a 30-year-old female comes to the ED with multiple raised circular lesions that are pruritic. They have been going on for the past 2 weeks. Patient appears in no acute distress and is not in any respiratory distress. exam findings suggestive of bedbug bites. Patient was given IM Solu-Medrol and Benadryl while here in the ED. She was discharged with a prescription for prednisone and hydrocortisone cream. Patient was instructed to call pest control to evaluate for bedbugs and to get them removed. Return to ED precautions given. Follow-up with PCP in 7 to 10 days. Patient understood and agreed with plan. Discharge Plan Discharge Patient Disposition: Home Clinical Impression: Bed bug bite Qualifiers: Encounter type: initial encounter Qualified Code(s): W57.XXXA - Bitten or stung by nonvenomous insect and other nonvenomous arthropods, initial encounter Condition: Stable Prescriptions: New prednisone 50 mg tablet 50 mg PO DAILY 5 Days Qty: 5 RF: 0 Cortisone (hydrocortisone) 1 % cream 1 applic topical BID PRN (Reason: rash) Qty: 28.35 RF: 0 No Action citalopram [Celexa] 20 mg tablet 20 mg PO DAILY RF: 0 alprazolam 0.5 mg tablet 0.5 mg PO TID PRN (Reason: Anxiety) RF: 0 Discharge Orders: Discharge ED (Routine); Ordered 08/09/20 Ordered By: Chaitanya Ramsey Discharge Diet: Regular Discharge Activity: Resume usual activity Activity Restrictions/Additional Instructions: Follow-up with medical provider as directed in 7 to 10 days for reevaluation. Call out pest control and check all bedding and clothing for bedbugs. Take medications as prescribed. take [id number] Benadryl to help with rash as well. Return to the ER or your medical provider if condition worsens. Please read and understand discharge instructions. If any questions, please ask. Coding Level of Care Code ED Shredder/Granulator Operator for Oskar Fwsisi Exam Comprehensive
[2020-08-09 10:15] VITALS: BP 153/98; PULSE 75; RESP 12; O2SAT 98
[2020-08-09] MEDS: diphenhydrAMINE 25 mg Capsule PO (10:22)
[2020-08-09 10:47] VITALS: BP 120/78; PULSE 75; RESP 13; O2SAT 98
== END 2020-08-09 10:47 | disposition home or self-care (01) ==
PROVIDERS: Emergency Provider Physician Assistant
DX: S80.862A Insect bite (nonvenomous), left lower leg, initial encounter (principal); S40.862A Insect bite (nonvenomous) of left upper arm, initial encounter; S40.861A Insect bite (nonvenomous) of right upper arm, initial encounter; S30.861A Insect bite (nonvenomous) of abdominal wall, initial encounter; S10.96XA Insect bite of unspecified part of neck, initial encounter; S00.86XA Insect bite (nonvenomous) of other part of head, initial encounter; W57.XXXA Bitten or stung by nonvenomous insect and other nonvenomous arthropods, initial encounter; Z87.891 Personal history of nicotine dependence
CPT/HCPCS: 96372; 99283; J2930

== ENCOUNTER → 2020-12-30 15:29 | Outpatient (BNVA) | payer MEDICAID, SELFPAY | PROVIDERS: Visit Provider Emergency Medicine | DX: Z20.822 Contact with and (suspected) exposure to COVID-19 (principal) | CPT/HCPCS: 87635 ==

== ENCOUNTER 2021-04-20 11:24 | Outpatient (CLI) | payer MEDICAID, SELFPAY ==
[2021-04-20 12:17] VITALS: BP 117/83; PULSE 93; RESP 18; TEMP 36.6; O2SAT 97; BMI 38.9
[2021-04-20 12:50] VITALS: BP 106/70; PULSE 87; RESP 18; TEMP 36.3; O2SAT 96
[2021-04-20 13:45] VITALS: BP 110/75; PULSE 88; RESP 18; TEMP 36.9; O2SAT 96
[2021-04-20 13:50] VITALS: BP 110/75; PULSE 88; RESP 18; TEMP 36.9; O2SAT 96
== END 2021-04-20 11:25 | disposition home or self-care (01) ==
PROVIDERS: Visit Provider Nurse Practitioner
DX: U07.1 COVID-19 (principal)
CPT/HCPCS: 96365

== ENCOUNTER 2021-04-22 11:06 | Emergency (ER) | payer MEDICAID, SELFPAY ==
--- NOTE | 2021-04-22 11:15 | W.ED.COVID ---
HPI - COVID General: Chief Complaint: COVID symptoms Stated Complaint: COVID +: SOB Time Seen by Provider: 04/22/21 11:15 History of Present Illness: HPI Narrative: Ms. Cardona is a 31-year-old lady with history of anxiety and known Covid positive who presents emerged department due to sore throat and generalized malaise. She first began experiencing fairly typical Covid symptoms on the eighth, she tested positive at [facility] on the ninth and received monoclonal antibody infusion on the 10th. She is continues to have fevers, chills, and is concerned about increased moderate intensity earaches and sore throat as well as tenderness on the bilateral sides of her throat. She has sore throat associated with persistent cough. Muscle aches and pains, some diarrhea. She has tried home medications with only mild relief. No other specific changes in health, exacerbating, or alleviating factors identified. COVID Results: SARS-CoV-2 RNA (RT-PCR) Not detected (NOT DETECTED) 12/30/20 15:29 12/30/20 Review of Systems General: Reports: 10 or more systems reviewed and unremarkable except in HPI and below PFSH ED PFS: Medical History (Updated 04/22/21 @ 12:32 by Oli Cm MD) Blood type A+ Surgical History No pertinent past surgical history Family History Grandfather Hypertension paternal Diabetes paternal Grandmother Stroke paternal Other Heart disease Social History Smoking and tobacco status: former smoker Quit status (tobacco): has quit using tobacco Year quit tobacco: 2014 Former quit date comment: .5 pack per day for 2 years Second hand smoke exposure: Yes Alcohol intake: current Alcohol intake frequency: holidays/special occasions only Marital status: Current occupational status: unemployed Current gender identity: Female Special grzegorz needs: No Female Reproductive History: Date of last menstrual period: 04/12/20 Physical Exam Narrative: EXAM NARRATIVE: GENERAL/CONSTITUTIONAL -mildly ill-appearing. No acute distress. Eyes -no scleral icterus, no conjunctival injection ENMT - Atraumatic external nose and ears. Moist mucous membranes NECK - supple. trachea midline CARDIOVASCULAR - regular rate and rhythm. Peripheral pulses 2+ and equal RESPIRATORY -mildly coarse to auscultation bilaterally. No retractions or accessory muscle use. ABDOMEN/GI - Nontender/Nondistended. MSK - Extremities without obvious deformity or tenderness to palpation SKIN - Warm, Dry NEURO - alert and appropriately oriented. Moves all extremities equally. Course ED course: - Patient was seen and evaluated by me at bedside - Patient placed on cardiac monitors, IV access obtained - Initial evaluation notable for mildly ill appearance, no acute distress. No significant respiratory distress. - Offered IV for labs and symptom care with the patient declined. Patient desire chest x-ray to rule out secondary pneumonia. - Imaging notable for no acute finding - Upon serial reexamination after treatment the patient was similar. Tolerated p.o. intake - Based on patient history, evaluation, labs, and imaging as interpreted the most likely cause of the patient's condition is Covid pneumonia - The results of ED evaluation were discussed with the patient including prescriptions and/or symptomatic cares (if applicable) including appropriate and responsible use, followup plan, and return precautions. The patient verbalized understanding and felt safe for discharge. - Patient discharged in satisfactory condition. Vital Signs: Vital signs: Vital Signs Temperature 98.8 F 04/22/21 12:50 Pulse Rate 89 04/22/21 12:50 Respiratory Rate 16 04/22/21 12:50 Blood Pressure 120/96 04/22/21 12:50 Pulse Oximetry 97 04/22/21 12:58 MDM - COVID Medical Records: Attestation: I reviewed the patient's medical records. Lab Data: Attestation: I reviewed the patient's lab results. COVID Results: SARS-CoV-2 RNA (RT-PCR) Not detected (NOT DETECTED) 12/30/20 15:29 12/30/20 Discharge Plan Discharge Patient Disposition: Home Clinical Impression: COVID-19 Condition: Stable Prescriptions: No Action citalopram [Celexa] 20 mg tablet 20 mg PO DAILY RF: 0 alprazolam 0.5 mg tablet 0.5 mg PO TID PRN (Reason: Anxiety) RF: 0 Cortisone (hydrocortisone) 1 % cream 1 applic topical BID PRN (Reason: rash) Qty: 28.35 RF: 0 Discharge Orders: Discharge ED (Routine); Ordered 04/22/21 Ordered By: Oli Kolm Discharge Diet: Usual diet Discharge Activity: Increase activity as tolerated Patient Instructions: COVID-19 (Coronavirus Disease 2019) (ED), How to Recover from COVID-19 at Home (ED) Activity Restrictions/Additional Instructions: Thank you for visiting the emergency department. You were seen and evaluated for symptoms related to Covid. I do not see evidence of any additional disease process at this time. Please continue self-care at home and quarantine. Please return to the emergency department for worsening symptoms, inability to tolerate oral intake, or anything else that you are concerned about and feel needs emergency department evaluation. Coding Level of Care Code ED Boiler Tenders Supervisor for Oskar Jean
[2021-04-22 11:34] VITALS: BP 132/99; PULSE 92; RESP 18; TEMP 37.2; O2SAT 98; BMI 38.9
--- NOTE | 2021-04-22 12:00 | XR_ITS ---
WS: [id number] Portable AP upright chest, 04/22/2021 Clinical Data: cough, covid Comparison: Portable chest, 01/21/2020. Findings: No nodules, masses or effusions are seen. The heart is normal. The pulmonary vascularity is not increased. No pneumonia or pneumothorax is seen. XR/XR chest 1V portable [id number] Impression: Negative chest.
[2021-04-22 12:50] VITALS: BP 120/96; PULSE 89; RESP 16; TEMP 37.1; O2SAT 97
[2021-04-22 12:58] VITALS: O2SAT 97
== END 2021-04-22 13:04 | disposition home or self-care (01) ==
PROVIDERS: Emergency Provider Emergency Medicine
DX: U07.1 COVID-19 (principal); Z87.891 Personal history of nicotine dependence
CPT/HCPCS: 71045; 99282

== ENCOUNTER 2021-06-02 11:48 | Emergency (ER) | payer MEDICAID, SELFPAY ==
[2021-06-02 12:32] VITALS: BP 118/78; PULSE 77; RESP 16; TEMP 36.7; O2SAT 97
--- NOTE | 2021-06-02 12:39 | W.ED.NECK ---
HPI - Neck Pain/Injury General: Chief Complaint: Neck Pain/Injury Stated Complaint: NECK PAIN WHEN MOVING Time Seen by Provider: 06/02/21 12:09 History of Present Illness: HPI Narrative: Patient is concerned that she might have cancer in her neck. She has had pain in her neck while sleeping the last week hurts with palpation at times not hurting presently. Denies fever chills sore throat or other related problems MD complaint: neck pain Onset (ago): day(s) Associated symptoms: Denies headache(s) or nausea Review of Systems Const: Denies: fever(s), chills or body aches Eyes: Denies: change in vision or blurry vision ENMT: Denies: throat pain or nasal congestion Card: Denies: chest pain or dyspnea on exertion Resp: Denies: dyspnea, productive cough or non-productive cough GI: Denies: abdominal pain, nausea or vomiting Musc: Reports: neck pain (Hurts inside her neck on the right side seen PCP diagnosis pulled muscle); Denies: extremity pain Skin/Breast: Denies: rash Neuro: Denies: headache(s) Psych: Denies: anxiety or depression Louis/Lymph: Denies: easy bruising PFSH ED PFSH: Medical History (Updated 06/02/21 @ 12:39 by JARROD Gorman) Blood type A+ Surgical History No pertinent past surgical history Family History Grandfather Hypertension paternal Diabetes paternal Grandmother Stroke paternal Other Heart disease Social History Smoking and tobacco status: former smoker Quit status (tobacco): has quit using tobacco Year quit tobacco: 2014 Former quit date comment: .5 pack per day for 2 years Second hand smoke exposure: Yes Alcohol intake: current Alcohol intake frequency: holidays/special occasions only Marital status: Current occupational status: unemployed Current gender identity: Female Special grzegorz needs: No Female Reproductive History: Date of last menstrual period: 04/12/20 Physical Exam Const: COMMON NORMALS: no acute distress, average body habitus and patient oriented x3 HENMT: COMMON NORMALS: normocephalic HEAD & SCALP: normal to inspection and normocephalic FACE & SINUS: normal facial exam Eye: COMMON NORMALS: conjunctivae normal GENERAL EYE: appearance normal, both eyes and all related structures CONJUNCTIVA: Yes conjunctivae normal Neck/C-Spine: COMMON NORMALS: full ROM, no JVD and Thyroid normal THYROID: Thyroid normal CERVICAL SPINE: Yes cervical ROM normal OTHER: No swelling, erythema, masses noted in the neck. Thyroids feels normal. Chest: COMMONS NORMALS: normal inspection of the chest Resp: COMMON NORMALS: normal respiratory effort and clear to auscultation bilaterally AUSCULTATION: clear to auscultation bilaterally Cardio: COMMON NORMALS: no JVD, regular rate and regular rhythm RATE: regular rate RHYTHM: regular rhythm GI: COMMON NORMALS: Normal to inspection, nondistended, normoactive bowel sounds present Extremity: COMMON NORMALS: normal to inspection and full ROM Neuro: COMMON NORMALS: patient oriented x3 Psych: OTHER: Patient has fear of getting cancer. Course Vital Signs: Vital signs: Vital Signs Temperature 98.1 F 06/02/21 12:32 Pulse Rate 77 06/02/21 12:32 Respiratory Rate 16 06/02/21 12:32 Blood Pressure 118/78 06/02/21 12:32 Pulse Oximetry 97 06/02/21 12:32 Discharge Plan Discharge Patient Disposition: Home Clinical Impression: Acute neck pain Condition: Stable Prescriptions: No Action citalopram [Celexa] 20 mg tablet 20 mg PO DAILY RF: 0 alprazolam 0.5 mg tablet 0.5 mg PO TID PRN (Reason: Anxiety) RF: 0 Cortisone (hydrocortisone) 1 % cream 1 applic topical BID PRN (Reason: rash) Qty: 28.35 RF: 0 Discharge Orders: Discharge ED (Routine); Ordered 06/02/21 Ordered By: Bigg Ward Discharge Diet: Usual diet Discharge Activity: Increase activity as tolerated Activity Restrictions/Additional Instructions: Up your primary care next week and/or return here if worsening symptoms. Coding Level of Care Code ED Supervisor Quality Control for Oskar Jean
== END 2021-06-02 13:00 | disposition home or self-care (01) ==
PROVIDERS: Emergency Provider Nurse Practitioner Family
DX: M54.2 Cervicalgia (principal)

== ENCOUNTER 2021-08-21 14:25 | Emergency (ER) | payer MEDICAID, SELFPAY ==
[2021-08-21 14:35] VITALS: BP 141/91; PULSE 85; RESP 16; TEMP 36.8; O2SAT 98; BMI 39.4
--- NOTE | 2021-08-21 14:55 | W.ED.HA ---
HPI - Headache General: Chief Complaint: Headache Stated Complaint: high bs; recently dx of DM2 Time Seen by Provider: 08/21/21 14:49 Source: patient Mode of arrival: ambulatory Limitations: no limitations History of Present Illness: 31-year-old female states that she was diagnosed with type 2 diabetes last week. States that she was prescribed Metformin but has not started taking it because she was concerned it interact with her other medications. She states that this morning she had syrup and it caused her blood sugar to go up in the 360s given her mild headache. She denies any vomiting denies any diarrhea denies any worsening improving factors. Associated symptoms: Deny chest pain, fever(s), nausea, rash or vomiting Review of Systems Const: Denies: fever(s), chills, body aches or change in appetite Eyes: Denies: blurry vision or eye discomfort ENMT: Denies: throat pain or dental pain Card: Denies: chest pain Resp: Denies: dyspnea GI: Denies: abdominal pain, nausea, vomiting or diarrhea : Denies: dysuria Musc: Denies: neck pain or back pain Skin/Breast: Denies: rash Neuro: Reports: headache(s) Psych: Denies: depression Louis/Lymph: Denies: easy bruising All/Imm: Denies: urticaria PFSH ED PFSH: Medical History (Updated 08/21/21 @ 15:41 by Jude Hendricks MD) Blood type A+ Surgical History No pertinent past surgical history Family History Grandfather Hypertension paternal Diabetes paternal Grandmother Stroke paternal Other Heart disease Social History Smoking and tobacco status: former smoker Quit status (tobacco): has quit using tobacco Year quit tobacco: 2014 Former quit date comment: .5 pack per day for 2 years Second hand smoke exposure: Yes Alcohol intake: current Alcohol intake frequency: holidays/special occasions only Marital status: Current occupational status: unemployed Current gender identity: Female Special grzegorz needs: No Female Reproductive History: Date of last menstrual period: 04/12/20 Physical Exam Const: COMMON NORMALS: no acute distress, patient oriented x3 and healthy appearing HENMT: COMMON NORMALS: normocephalic and atraumatic HEAD & SCALP: normocephalic and atraumatic Eye: COMMON NORMALS: Equal, round and reactive pupils present and EOMs intact bilaterally PUPIL: Yes Equal, round and reactive pupils present Neck/C-Spine: COMMON NORMALS: full ROM and supple Chest: COMMONS NORMALS: normal inspection of the chest and normal palpation of entire chest wall Resp: COMMON NORMALS: normal respiratory effort, No retractions, No use of accessory muscles and clear to auscultation bilaterally AUSCULTATION: clear to auscultation bilaterally Cardio: COMMON NORMALS: regular rate, regular rhythm and No murmurs present (Cardio) RATE: regular rate RHYTHM: regular rhythm GI: COMMON NORMALS: Normal to inspection, nondistended, normoactive bowel sounds present, Soft to palpation, non-tender and no masses PALPATION: Yes Soft to palpation Extremity: COMMON NORMALS: normal to inspection and full ROM Neuro: COMMON NORMALS: patient oriented x3, moves all extremities and no focal motor deficits Psych: COMMON NORMALS: mental status grossly normal, Normal thought process present and cooperative THOUGHT PROCESS: Normal thought process present Skin: COMMON NORMALS: no rashes or lesions noted and no wounds GENERAL SKIN EXAM: no rashes or lesions noted Course Vital Signs: Vital signs: Vital Signs Temperature 98.3 F 08/21/21 14:35 Pulse Rate 85 08/21/21 14:35 Respiratory Rate 16 08/21/21 14:35 Blood Pressure 141/91 08/21/21 14:35 Pulse Oximetry 98 08/21/21 14:35 MDM - Headache Medical Decision Making Patient presents with hyperglycemia with recent diagnosis of type 2 diabetes she has not been taking her metformin her blood sugar here is normal that give her 1 L of fluid she is to start taking her Metformin follow-up with her PCP and return if worsening. Lab Data : 08/21/21 15:05 08/21/21 15:05 Laboratory Results WBC 5.9 10^3/uL (4.0-10.0) 08/21/21 15:05 RBC 4.47 10^6/uL (4.1-5.3) 08/21/21 15:05 Hgb 12.8 g/dL (11.5-15.3) 08/21/21 15:05 Hct 39.1 % (37.0-47.0) 08/21/21 15:05 MCV 87.5 fl (81-99) 08/21/21 15:05 MCH 28.6 pg (28.0-34.0) 08/21/21 15:05 MCHC 32.7 g/dL (30.0-36.0) 08/21/21 15:05 RDW 12.5 % (12.1-15.1) 08/21/21 15:05 Plt Count 161 10^3/cmm (130-400) 08/21/21 15:05 MPV 10.7 fL (7.4-10.4) H 08/21/21 15:05 Neut % (Auto) 58.6 % 08/21/21 15:05 Lymph % (Auto) 26.7 % 08/21/21 15:05 [place] % (Auto) 6.3 % 08/21/21 15:05 Eos % (Auto) 7.4 % 08/21/21 15:05 Baso % (Auto) 0.5 % 08/21/21 15:05 Neut # (Auto) 3.43 10^3/uL (1.8-7.7) 08/21/21 15:05 Lymph # (Auto) 1.6 10^3/uL (0.8-4.8) 08/21/21 15:05 [place] # (Auto) 0.4 10^3/uL (0.2-0.9) 08/21/21 15:05 Eos # (Auto) 0.4 10^3/uL (0.0-0.8) 08/21/21 15:05 Baso # (Auto) 0.0 10^3/uL (0.0-0.1) 08/21/21 15:05 Nucleated RBC % (auto) 0 % 08/21/21 15:05 Nucleated RBCs # 0.0 /100WBC 08/21/21 15:05 Sodium 136 mmol/L (136-145) 08/21/21 15:05 Potassium 4.2 mmol/L (3.5-5.1) 08/21/21 15:05 Chloride 100 mmol/L (98-107) 08/21/21 15:05 Carbon Dioxide 23 mmol/L (22-29) 08/21/21 15:05 Anion Gap 17.2 (5-19) 08/21/21 15:05 BUN 9 mg/dL (6-20) 08/21/21 15:05 Creatinine 0.6 mg/dL (0.5-0.9) 08/21/21 15:05 GFR Calculation 116.6 mL/min (90-130) 08/21/21 15:05 Glucose 199 mg/dL (65-115) H 08/21/21 15:05 POC Glucose 191 mg/dL (70-110) H 08/21/21 14:50 Calculated Osmolality 286 mOsm/kg (285-295) 08/21/21 15:05 Calcium 9.3 mg/dL (8.5-10.5) 08/21/21 15:05 Total Bilirubin 0.4 mg/dL (0.15-1.2) 08/21/21 15:05 AST 143 U/L (0-32) H 08/21/21 15:05 ALT 136 U/L (0-33) H 08/21/21 15:05 Alkaline Phosphatase 102 IU/L (35-105) 08/21/21 15:05 Total Protein 7.9 g/dL (6.6-8.7) 08/21/21 15:05 Albumin 5.0 g/dL (3.5-5.2) 08/21/21 15:05 Globulin 2.9 g/dL (1.3-4.6) 08/21/21 15:05 Discharge Plan Discharge Patient Disposition: Home Clinical Impression: Hyperglycemia Condition: Stable Prescriptions: New ondansetron 4 mg tablet,disintegrating 4 mg PO Q6H PRN (Reason: nausea and vomiting) Qty: 14 0RF No Action citalopram [Celexa] 20 mg tablet 20 mg PO DAILY 0RF alprazolam 0.5 mg tablet 0.5 mg PO TID PRN (Reason: Anxiety) 0RF Rx Instructions: PT STATES SHE NEEDS A REFILL ON THIS. SHE HAS BEEN OUT FOR A WHILE AND FEELS SHE NEEDS THEM. Cortisone (hydrocortisone) 1 % cream 1 applic topical BID PRN (Reason: rash) Qty: 28.35 0RF Discharge Orders: Discharge ED (Routine); Ordered 08/21/21 Ordered By: Jude Hendricks Referrals: ANUSHA DICK MD [Primary Care Provider] - 1-3 days Discharge Diet: Advance as tolerated Discharge Activity: Use walker/crutches as instructed Patient Instructions: Diabetic Hyperglycemia (ED) Coding Level of Care Code ED Instructional Systems Specialist for Chg Fwd Exam Comprehensive
[2021-08-21] MEDS: sodium chloride 0.9% 1,000 ML 999 ML IV (14:58)
[2021-08-21 15:05] LABS: Glucose Point of Care 191 mg/dL (70-110)
[2021-08-21 15:17] LABS: Basophils % 0.5 %; Eosinophils # 0.4 10^3/uL (0.0-0.8); Eosinophils % 7.4 %; Hematocrit 39.1 % (37.0-47.0); Hemoglobin 12.8 g/dL (11.5-15.3); Lymphocytes # 1.6 10^3/uL (0.8-4.8); Lymphocytes % 26.7 %; Mean Corpuscular HGB Conc 32.7 g/dL (30.0-36.0); Mean Corpuscular Hemoglobin 28.6 pg (28.0-34.0); Mean Corpuscular Volume 87.5 fl (81-99); Mean Platelet Volume 10.7 fL (7.4-10.4); Monocytes # 0.4 10^3/uL (0.2-0.9); Monocytes % 6.3 %; Neutrophils # 3.43 10^3/uL (1.8-7.7); Neutrophils % 58.6 %; Nucleated Red Blood Cells % 0 %; Platelet Count 161 10^3/cmm (130-400); Red Blood Count 4.47 10^6/uL (4.1-5.3); Red Cell Distribution Width 12.5 % (12.1-15.1); White Blood Count 5.9 10^3/uL (4.0-10.0)
[2021-08-21 15:43] LABS: Alanine Aminotransferase 136 U/L (0-33); Alkaline Phosphatase 102 IU/L (35-105); Blood Urea Nitrogen 9 mg/dL (6-20); Calcium 9.3 mg/dL (8.5-10.5); Carbon Dioxide 23 mmol/L (22-29); Chloride 100 mmol/L (98-107); Globulin 2.9 g/dL (1.3-4.6); Glomerular Filtration Rate 116.6 mL/min (90-130); Glucose 199 mg/dL (65-115); Osmolality Calculated 286 mOsm/kg (285-295); Sodium 136 mmol/L (136-145); Total Bilirubin 0.4 mg/dL (0.15-1.2); Total Protein 7.9 g/dL (6.6-8.7)
[2021-08-21 15:52] LABS: Anion Gap 17.2 (5-19); Aspartate Amino Transferase 143 U/L (0-32); Potassium 4.2 mmol/L (3.5-5.1)
== END 2021-08-21 16:15 | disposition home or self-care (01) ==
PROVIDERS: Emergency Provider Emergency Medicine; PCP Family Medicine
DX: E11.65 Type 2 diabetes mellitus with hyperglycemia (principal); Z87.891 Personal history of nicotine dependence
CPT/HCPCS: 36416; 80053; 82962; 85025; 96360; 99283; J7030

== ENCOUNTER 2021-11-22 13:46 | Emergency (ER) | payer MEDICAID, SELFPAY ==
[2021-11-22 14:05] VITALS: BP 132/95; PULSE 68; RESP 16; TEMP 36.8; O2SAT 97; BMI 37.8
--- NOTE | 2021-11-22 14:29 | W.ED.SKABFB ---
HPI - Skin/Abscess/Foreign Bdy General: Chief complaint: General Medical Stated complaint: breast pain Time Seen by Provider: 11/22/21 14:14 Source: patient Mode of arrival: ambulatory Limitations: no limitations History of Present Illness: Patient is a 31-year-old female who presents to ED today with complaints of pain to her right nipple that started today. She has not noticed any redness, warmth, swelling, heat, or nipple drainage. No dimpling of the skin. She has not noticed any abnormal breast lumps/bumps. She reportedly has a fear of developing cancer so wanted to get the area checked MD complaint: other (R nipple pain) Onset (ago): hour(s) Pain Consistency: intermittent Relieving factors: none Exacerbating factors: none Context: none Associated symptoms: Reports no associated symptoms; Deny chills or fever(s) Treatments prior to arrival: none Review of Systems Const: Denies: fever(s), chills, body aches, fatigue or malaise Card: Denies: chest pain Skin/Breast: Reports: other (R nipple pain) [facility] ED PFSH: Medical History Blood type A+ Surgical History No pertinent past surgical history Family History Grandfather Hypertension paternal Diabetes paternal Grandmother Stroke paternal Other Heart disease Social History Smoking and tobacco status: former smoker Quit status (tobacco): has quit using tobacco Year quit tobacco: 2014 Former quit date comment: .5 pack per day for 2 years Second hand smoke exposure: Yes Alcohol intake: current Alcohol intake frequency: holidays/special occasions only Marital status: Current occupational status: unemployed Current gender identity: Female Special grzegorz needs: No Female Reproductive History: Date of last menstrual period: 04/12/20 Physical Exam Const: COMMON NORMALS: no acute distress, patient oriented x3, no limitations and alert GENERAL APPEARANCE: cooperative Lymph: LYMPHATIC: no lymphadenopathy noted Chest: COMMONS NORMALS: normal inspection of the chest, normal palpation of entire chest wall, normal inspection of the breasts and normal palpation of the breasts Breast/axilla inspection: Yes normal inspection of the breasts BREAST/AXILLA PALPATION: Yes normal palpation of the breasts NIPPLE/AREOLA: Yes nipples/areola normal OTHER: she has no abnormalities noted to breast or nipple at this time; no axillary lymphadenopathy Neuro: COMMON NORMALS: patient oriented x3 SENSORIUM/ORIENTATION: Yes alert Skin: COMMON NORMALS: no rashes or lesions noted GENERAL SKIN EXAM: no rashes or lesions noted Course Vital Signs: Vital signs: Vital Signs Temperature 98.2 F 11/22/21 14:05 Pulse Rate 68 11/22/21 14:05 Respiratory Rate 16 11/22/21 14:05 Blood Pressure 132/95 11/22/21 14:05 Pulse Oximetry 97 11/22/21 14:05 MDM - Skin/Abscess/Foreign Bdy Medicial Decision Making At this point there is no abnormalities to patient's breast or nipple visualized or palpated. Patient was instructed to keep a close observation of symptoms. If pain persists or if she starts developing other symptoms such as nipple discharge, redness, swelling, dimpling of the skin then she needs to follow-up with her primary care provider and/or [facility] RES[facility] SPECIALIST. Discharge Plan Discharge Patient Disposition: Home Clinical Impression: Nipple pain Condition: Stable Prescriptions: No Action citalopram [Celexa] 20 mg tablet 20 mg PO DAILY 0RF alprazolam 0.5 mg tablet 0.5 mg PO TID PRN (Reason: Anxiety) 0RF Rx Instructions: PT STATES SHE NEEDS A REFILL ON THIS. SHE HAS BEEN OUT FOR A WHILE AND FEELS SHE NEEDS THEM. Cortisone (hydrocortisone) 1 % cream 1 applic topical BID PRN (Reason: rash) Qty: 28.35 0RF ondansetron 4 mg tablet,disintegrating 4 mg PO Q6H PRN (Reason: nausea and vomiting) Qty: 14 0RF Discharge Orders: Discharge ED (Routine); Ordered 11/22/21 Ordered By: Radha Birmingham Referrals: ANUSHA DICK MD [Primary Care Provider] - Coding Level of Care Code ED Oil Heat Technician for Jackieg Ted
== END 2021-11-22 15:10 | disposition home or self-care (01) ==
PROVIDERS: Emergency Provider Physician Assistant; PCP Family Medicine
DX: N64.4 Mastodynia (principal)
CPT/HCPCS: 99282

== ENCOUNTER 2021-11-23 23:50 | Emergency (ER) | payer MEDICAID, SELFPAY ==
[2021-11-24 00:55] VITALS: BP 137/85; PULSE 77; RESP 18; TEMP 36.9; O2SAT 97; BMI 37.8
--- NOTE | 2021-11-24 01:06 | W.ED.SKABFB ---
HPI - Skin/Abscess/Foreign Bdy General: Chief complaint: Skin/Abscess/Foreign Body Stated complaint: Sore on lower stomach Time Seen by Provider: 11/24/21 01:06 History of Present Illness: Ms. Cardona is a 31-year-old lady who presents to the emergency department due to concern over skin lesion near her groin. She reports noticing it about 1 hour prior to presenting to the emergency department. She noted some discomfort and felt a bump but could not visualize the area adequately. She denies noticing it this morning. Moderate intensity symptoms that are worse with anything touching the region include close. Does have a history of recurrent skin infections higher up on the abdomen. Denies signs of systemic illness. No other specific changes in health, exacerbating, or alleviating factors identified. Onset (ago): hour(s) Location: genitals Severity: moderate Pain Consistency: intermittent Exacerbating factors: palpation Review of Systems General: Reports: 10 or more systems reviewed and unremarkable except in HPI and below PFSH ED PFSH: Medical History (Updated 12/02/21 @ 00:00 by ) Blood type A+ Surgical History No pertinent past surgical history Family History Grandfather Hypertension paternal Diabetes paternal Grandmother Stroke paternal Other Heart disease Social History Smoking and tobacco status: former smoker Quit status (tobacco): has quit using tobacco Year quit tobacco: 2014 Former quit date comment: .5 pack per day for 2 years Second hand smoke exposure: Yes Alcohol intake: current Alcohol intake frequency: holidays/special occasions only Marital status: Current occupational status: unemployed Current gender identity: Female Special grzegorz needs: No Female Reproductive History: Date of last menstrual period: 04/12/20 Physical Exam Const: COMMON NORMALS: alert GENERAL APPEARANCE: cooperative and well developed HENMT: COMMON NORMALS: normocephalic and atraumatic HEAD & SCALP: normocephalic and atraumatic Eye: COMMON NORMALS: conjunctivae normal CONJUNCTIVA: Yes conjunctivae normal SCLERA: sclerae normal Neck/C-Spine: COMMON NORMALS: supple GENERAL: Yes trachea midline Resp: COMMON NORMALS: normal respiratory effort EFFORT & INSPECTION: Yes able to speak in complete sentences Cardio: COMMON NORMALS: regular rate and regular rhythm RATE: regular rate RHYTHM: regular rhythm GI: COMMON NORMALS: Soft to palpation PALPATION: Yes Soft to palpation and No Tenderness to palpation present (GI) PERCUSSION: normal to percussion Extremity: GENERAL: Yes normal exam except as noted and No edema Neuro: COMMON NORMALS: moves all extremities SENSORIUM/ORIENTATION: Yes alert and No Orientation impaired Psych: COMMON NORMALS: mental status grossly normal and Normal thought process present THOUGHT PROCESS: Normal thought process present Skin: NARRATIVE SKIN EXAM: Exam of reported area performed with metrology engineer present. In the suprapubic region just right of midline there is approximately 2 cm area of erythema with 1 cm central area of induration centered about a hair follicle. No fluctuance or pus pocket appreciated on clinical exam. No areas of remote tenderness or significant spread. Additional area on the inferior abdomen of reported recurrent site of abscesses without obvious etiology for recurrence and no fluctuant fluid collection at this time. Course ED course: - Patient was seen and evaluated by me at bedside - Patient placed on cardiac monitors, vital signs obtained - Initial evaluation notable for exam as above - Based on patient history, evaluation, and testing as interpreted the most likely cause of the patient's condition is folliculitis - The results of ED evaluation were discussed with the patient including prescriptions and/or symptomatic cares (if applicable) including appropriate and responsible use, followup plan, and return precautions. The patient verbalized understanding and felt safe for discharge. - Patient discharged in satisfactory condition. Note: Click bubbles or prepopulated smith in note writing are used for assistance with data collection and billing and are inherently more limited than narrative and other text portions of this note. Please use narrative for additional clinical history and defer to narrative/free test for any case of contradictory information. If information appears in only free text or click bubble it should be considered present or absent as reported. Please contact note senior mortgage underwriter for clarifications of clinical information or contradictory information. MDM is a brief summary, contradictory or erroneous seeming information should be clarified and full note should be reviewed. Vital Signs: Vital signs: Vital Signs Temperature 98.5 F 11/24/21 00:55 Pulse Rate 88 11/24/21 01:24 Respiratory Rate 16 11/24/21 01:24 Blood Pressure 130/90 11/24/21 01:24 Pulse Oximetry 99 11/24/21 01:24 MDM - Skin/Abscess/Foreign Bdy Medicial Decision Making 31-year-old lady presenting with history of recurrent skin infections and new skin lesion in pubic area. Nonvesicular skin lesion consistent with folliculitis/localized cellulitis. Patient is nontoxic. No fluctuance/drainable fluid collection. Satisfactory for outpatient management. Medical Records I reviewed the patient's medical records. Lab Data I reviewed the patient's lab results. Discharge Plan Discharge Patient Disposition: Home Clinical Impression: Folliculitis Condition: Stable Prescriptions: No Action citalopram [Celexa] 20 mg tablet 20 mg PO DAILY 0RF alprazolam 0.5 mg tablet 0.5 mg PO TID PRN (Reason: Anxiety) 0RF Rx Instructions: PT STATES SHE NEEDS A REFILL ON THIS. SHE HAS BEEN OUT FOR A WHILE AND FEELS SHE NEEDS THEM. Cortisone (hydrocortisone) 1 % cream 1 applic topical BID PRN (Reason: rash) Qty: 28.35 0RF ondansetron 4 mg tablet,disintegrating 4 mg PO Q6H PRN (Reason: nausea and vomiting) Qty: 14 0RF Discharge Orders: Discharge ED (Routine); Ordered 11/24/21 Ordered By: Oli Cm Referrals: ANUSHA DICK MD [Primary Care Provider] - Discharge Diet: Usual diet Discharge Activity: Increase activity as tolerated Patient Instructions: Folliculitis (ED), Abscess (ED) Activity Restrictions/Additional Instructions: Thank you for visiting the emergency department. You were seen and evaluated for groin skin lesion. This appears to be infection centered around a hair follicle which will be treated with antibiotics. Based on physical exam I do not feel that this is amenable to incision and drainage however please watch for signs of worsening. Return to the emergency department for signs of systemic illness such as fevers nausea vomiting, worsening symptoms, any necrosis or spread to the perineum or labia, or anything else that you are concerned about and feel needs emergency department evaluation. Coding Level of Care Code ED Coin Purse Assembler for Oskar Jean Exam Comprehensive
[2021-11-24 01:20] VITALS: BP 130/90; PULSE 88; RESP 16; O2SAT 99
[2021-11-24 01:24] VITALS: BP 130/90; PULSE 88; RESP 16; O2SAT 99
== END 2021-11-24 01:25 | disposition home or self-care (01) ==
PROVIDERS: Emergency Provider Emergency Medicine; PCP Family Medicine
DX: L73.9 Follicular disorder, unspecified (principal)
CPT/HCPCS: 99283

== ENCOUNTER 2021-12-27 19:13 | Emergency (ER) | payer MEDICAID, SELFPAY ==
[2021-12-27 19:32] VITALS: BP 152/103; PULSE 82; RESP 18; TEMP 37.1; O2SAT 97; BMI 38.7
--- NOTE | 2021-12-27 20:41 | ECG_ITS ---
[facility] Test Date: 2021-12-27 Pat Name: Ana Cardona Department: Room: Gender: Female Professor Of Biological Sciences: : 1990 Requested By: Oli Cm Order Number: [id number] Jean MD: Matt Rosales M.D. Measurements Intervals [place] Rate: 82 P: 29 PA: 159 QRS: -14 QRSD: 104 T: 19 QT: 386 QTc: 453 Interpretive Statements SINUS RHYTHM MODERATE VOLTAGE CRITERIA FOR LVH, CONSIDER NORMAL VARIANT [MEETS CRITERIA IN ONE OF: R(aVL), S(V1), R(V5), R(V5/V6)+S(V1)] Compared to ECG 01/21/2020 08:08:02 No significant changes Electronically Signed On 12-28-2021 16:32:01 CDT by Matt Rosales M.D. [email or web address]
== END 2021-12-28 | disposition left against medical advice (07) ==
PROVIDERS: Emergency Provider Family Medicine
DX: Z53.21 Procedure and treatment not carried out due to patient leaving prior to being seen by health care provider (principal)
CPT/HCPCS: 93005

== ENCOUNTER 2022-01-24 20:14 | Emergency (ER) | payer MEDICAID, SELFPAY ==
[2022-01-24 20:21] VITALS: BP 138/76; PULSE 105; RESP 18; TEMP 37.4; O2SAT 96; BMI 39.4
--- NOTE | 2022-01-24 20:28 | XRR_ITS ---
PROCEDURE INFORMATION: Exam: XR Chest Exam date and time: 01/24/2022 8:34 PM Age: 31 years old Clinical indication: Cough TECHNIQUE: Imaging protocol: Radiologic exam of the chest. Views: 1 view. COMPARISON: CR XR chest 1V portable [id number] 04/22/2021 12:07 PM FINDINGS: Lungs: The lungs are clear. Pleural spaces: Unremarkable. No pleural effusion. No pneumothorax. Heart/Mediastinum: Unremarkable. No cardiomegaly. Bones/joints: Unremarkable. XR/XR chest 1V portable [id number] IMPRESSION: No acute cardiopulmonary abnormality.
--- NOTE | 2022-01-24 20:33 | ED_ITS ---
HPI - General Adult General: Chief complaint: General Medical Stated complaint: cough/throat clogged/no energy Time Seen by Provider: 01/24/22 20:28 Source: patient Mode of arrival: ambulatory Limitations: no limitations History of Present Illness: 31-year-old female states of last 2 days she been having some sore throat and feeling that she has had something stuck in her throat along with some general fatigue and body aches she states that she felt like this last when she had COVID states she had a COVID swab today but she states that she feels like they barely swabbed her and did not get a good specimen. She denies any shortness of breath or fever denies any difficulty swallowing or vomiting. Associated symptoms: Deny chest pain, dyspnea, headache(s), nausea, rash or vomiting Review of Systems Const: Reports: body aches; Denies: fever(s), chills or change in appetite Eyes: Denies: blurry vision or eye discomfort ENMT: Reports: throat pain; Denies: dental pain Card: Denies: chest pain Resp: Denies: dyspnea GI: Denies: abdominal pain, nausea, vomiting or diarrhea : Denies: dysuria Musc: Denies: neck pain or back pain Skin/Breast: Denies: rash Neuro: Denies: headache(s) Psych: Denies: depression Louis/Lymph: Denies: easy bruising All/Imm: Denies: urticaria PFSH ED PFSH: Medical History (Updated 01/24/22 @ 21:08 by Jude Hendricks MD) Blood type A+ Surgical History No pertinent past surgical history Family History Grandfather Hypertension paternal Diabetes paternal Grandmother Stroke paternal Other Heart disease Social History Smoking and tobacco status: former smoker Quit status (tobacco): has quit using tobacco Year quit tobacco: 2014 Former quit date comment: .5 pack per day for 2 years Second hand smoke exposure: Yes Alcohol intake: current Alcohol intake frequency: holidays/special occasions only Marital status: Current occupational status: unemployed Current gender identity: Female Special grzegorz needs: No Female Reproductive History: Date of last menstrual period: 01/10/22 Physical Exam Const: COMMON NORMALS: no acute distress, patient oriented x3 and healthy appearing HENMT: COMMON NORMALS: normocephalic and atraumatic HEAD & SCALP: normocephalic and atraumatic MOUTH: Normal oral and palatal mucosa present THROAT: posterior oropharynx normal Eye: COMMON NORMALS: Equal, round and reactive pupils present and EOMs intact bilaterally PUPIL: Yes Equal, round and reactive pupils present Neck/C-Spine: COMMON NORMALS: full ROM and supple Chest: COMMONS NORMALS: normal inspection of the chest and normal palpation of entire chest wall Resp: COMMON NORMALS: normal respiratory effort, No retractions, No use of accessory muscles and clear to auscultation bilaterally AUSCULTATION: clear to auscultation bilaterally Cardio: COMMON NORMALS: regular rate, regular rhythm and No murmurs present (Cardio) RATE: regular rate RHYTHM: regular rhythm GI: COMMON NORMALS: Normal to inspection, nondistended, normoactive bowel sounds present, Soft to palpation, non-tender and no masses PALPATION: Yes Soft to palpation Extremity: COMMON NORMALS: normal to inspection and full ROM Neuro: COMMON NORMALS: patient oriented x3, moves all extremities and no focal motor deficits Psych: COMMON NORMALS: mental status grossly normal, Normal thought process present and cooperative THOUGHT PROCESS: Normal thought process present Skin: COMMON NORMALS: no rashes or lesions noted and no wounds GENERAL SKIN EXAM: no rashes or lesions noted Course Vital Signs: Vital signs: Vital Signs Temperature 99.3 F 01/24/22 20:21 Pulse Rate 105 H 01/24/22 20:21 Respiratory Rate 18 01/24/22 20:21 Blood Pressure 138/76 01/24/22 20:21 Pulse Oximetry 96 01/24/22 20:21 Oxygen Delivery Me thod 01/24/22 20:21 MDM - General Adult Medical Decision Making Patient presents here with likely viral syndrome her COVID is negative x-ray is negative she is well-appearing here in no distress she is stable for discharge she is to follow-up with PCP and return if worsening. Lab Data Laboratory Results SARS-CoV-2 Ag (Rapid) Negative (Negative) 01/24/22 20:36 Discharge Plan Discharge Patient Disposition: Home Clinical Impression: Viral syndrome Condition: Stable Prescriptions: No Action citalopram [Celexa] 20 mg tablet 20 mg PO DAILY alprazolam 0.5 mg tablet 0.5 mg PO TID PRN (Reason: Anxiety) Rx Instructions: PT STATES SHE NEEDS A REFILL ON THIS. SHE HAS BEEN OUT FOR A WHILE AND FEELS SHE NEEDS THEM. Cortisone (hydrocortisone) 1 % cream 1 applic topical BID PRN (Reason: rash) Qty: 28.35 0RF ondansetron 4 mg tablet,disintegrating 4 mg PO Q6H PRN (Reason: nausea and vomiting) Qty: 14 0RF Discharge Orders: Discharge ED (Routine); Ordered 01/24/22 Ordered By: Jude Hendricks Discharge Diet: Advance as tolerated Discharge Activity: Resume usual activity Patient Instructions: Viral Syndrome (ED) Coding Level of Care Code ED Health Care Coordinator for Oskar Fwd Exam Comprehensive
[2022-01-24 21:05] LABS: SARS Covid-2 Antigen Negative (Negative)
[2022-01-24] MEDS: ketorolac 60 mg/2 mL INJ IM (21:08)
[2022-01-24] MEDS: dexamethasone 10 mg/mL INJ IM (21:08)
[2022-01-24 21:13] VITALS: BP 120/71; PULSE 101; RESP 19; TEMP 37.5; O2SAT 99
== END 2022-01-24 21:14 | disposition home or self-care (01) ==
PROVIDERS: Emergency Provider Emergency Medicine
DX: B34.9 Viral infection, unspecified (principal); Z87.891 Personal history of nicotine dependence; Z20.822 Contact with and (suspected) exposure to COVID-19
CPT/HCPCS: 71045; 87426; 96372; 99284; J1100; J1885

== ENCOUNTER 2022-01-26 09:03 | Emergency (ER) | payer MEDICAID, SELFPAY ==
[2022-01-26 09:05] VITALS: BP 111/70; PULSE 113; RESP 20; TEMP 37.7; O2SAT 99; BMI 39.3
--- NOTE | 2022-01-26 09:15 | XR_ITS ---
WS: [id number] Portable AP upright chest, 01/26/2022 Clinical Data: dyspnea/cough Comparison: Portable chest, 01/24/2022. Findings: No nodules, masses or effusions are seen. The heart is normal. The pulmonary vascularity is not increased. No pneumonia or pneumothorax is seen. XR/XR chest 1V portable [id number] Impression: Negative chest.
[2022-01-26 09:21] VITALS: O2SAT 100
[2022-01-26 09:22] VITALS: BP 106/68; PULSE 110; RESP 16; O2SAT 100
[2022-01-26 09:51] VITALS: BP 108/75; PULSE 99; RESP 16; O2SAT 95
[2022-01-26 09:52] VITALS: BP 108/75; PULSE 97; RESP 16; O2SAT 95
[2022-01-26 11:46] LABS: Adenovirus Not Detected (NOT DETECT); Chlamydia Pneumoniae Not Detected (NOT DETECT); Coronavirus 229E,HKU1,NL63,OC4 Not Detected (NOT DETECT); Human Metapneumovirus Not Detected (NOT DETECT); Human Rhinovirus/Enterovirus Not Detected (NOT DETECT); Influenza A Not Detected (NOT DETECT); Influenza A H1 Not Detected (NOT DETECT); Influenza A H1-2009 Not Detected (NOT DETECT); Influenza A H3 Not Detected (NOT DETECT); Influenza B Not Detected (NOT DETECT); Mycoplasma Pneumoniae Not Detected (NOT DETECT); Parainfluenza Virus Type 1 Not Detected (NOT DETECT); Parainfluenza Virus Type 2 Not Detected (NOT DETECT); Parainfluenza Virus Type 3 Not Detected (NOT DETECT); Parainfluenza Virus Type 4 Not Detected (NOT DETECT); Respiratory Syncytial Virus A Not Detected (NOT DETECT); Respiratory Syncytial Virus B Not Detected (NOT DETECT); SARS-COV-2 Detected (NOT DETECT)
--- NOTE | 2022-01-28 12:27 | W.ED.COVID ---
HPI - COVID General: Chief Complaint: COVID symptoms Stated Complaint: chills Time Seen by Provider: 01/26/22 09:14 Source: patient Mode of arrival: ambulatory Limitations: no limitations Triage information: Has fever, cough or shortness of breath. No known COVID + exposure last 14 days History of Present Illness: 31-year-old female presents emergency room with complaint of cough congestion generally not feeling well low-grade fever. She was seen 2 days ago and tested for COVID with a rapid antigen which was negative advised supportive cares for viral infection states symptoms are persisting she has a headache malaise she has had some mild diarrhea intermittently but that seems to have already resolved. Cough is nonproductive. She has no known history of any chronic respiratory illnesses. MD complaint: has COVID symptoms COVID 19 common symptoms: positive fever(s), chills, cough, non-productive cough, dyspnea, fatigue, body aches, headache(s), nasal congestion, nausea and diarrhea; negative productive cough, throat pain or vomiting COVID 19 other sytmptoms: negative chest pain or requiring oxygen Onset (ago): hour(s) Severity: moderate Treatment prior to arrival: none COVID Results: SARS-CoV-2 Antigen (Rapid) Negative (Negative) 01/24/22 20:36 SARS-CoV-2 RNA (RT-PCR) Not detected (NOT DETECTED) 12/30/20 15:29 SARS-CoV-2 (PCR) Detected (NOT DETECT) A 01/26/22 09:48 Coronavirus Type 229E (PCR) Not detected (NOT DETECT) 01/26/22 09:48 Review of Systems Const: Reports: fever(s), chills, body aches, fatigue and malaise ENMT: Reports: nasal congestion; Denies: throat pain Card: Denies: chest pain, palpitations, edema, dyspnea on exertion or orthopnea Resp: Reports: dyspnea, non-productive cough and wheezing; Denies: productive cough GI: Reports: nausea and diarrhea; Denies: abdominal pain or vomiting : Denies: flank pain, difficulty voiding, dysuria, urinary frequency or urinary urgency Skin/Breast: Denies: rash or pruritus Neuro: Reports: headache(s) PFSH ED PFSH: Medical History Blood type A+ Surgical History No pertinent past surgical history Family History Grandfather Hypertension paternal Diabetes paternal Grandmother Stroke paternal Other Heart disease Social History Smoking and tobacco status: former smoker Quit status (tobacco): has quit using tobacco Year quit tobacco: 2014 Former quit date comment: .5 pack per day for 2 years Second hand smoke exposure: Yes Alcohol intake: current Alcohol intake frequency: holidays/special occasions only Marital status: Current occupational status: unemployed Current gender identity: Female Special grzegorz needs: No Female Reproductive History: Date of last menstrual period: 01/09/22 Physical Exam Const: COMMON NORMALS: no acute distress GENERAL APPEARANCE: cooperative and comfortable ORIENTATION/CONSCIOUSNESS: Yes awake, Yes oriented to person, Yes oriented to place and Yes oriented to time HENMT: COMMON NORMALS: normocephalic, atraumatic and hearing grossly normal bilaterally HEAD & SCALP: normocephalic and atraumatic Resp: COMMON NORMALS: normal respiratory effort, No retractions and No use of accessory muscles AUSCULTATION: wheezes (Scant) Cardio: COMMON NORMALS: regular rhythm and No murmurs present (Cardio) RATE: tachycardic RHYTHM: regular rhythm GI: COMMON NORMALS: Soft to palpation and No hepatosplenomegaly present AUSCULTATION: Yes normoactive bowel sounds PALPATION: Yes Soft to palpation, No Tenderness to palpation present (GI), No Guarding due to palpation present (GI) and Yes No hepatosplenomegaly present Extremity: COMMON NORMALS: normal to inspection, capillary refill normal, no clubbing, cyanosis or edema, no calf tenderness and no pedal edema Neuro: SENSORIUM/ORIENTATION: Yes oriented to person, Yes oriented to place and Yes oriented to time Skin: COMMON NORMALS: no rashes or lesions noted GENERAL SKIN EXAM: no rashes or lesions noted Course Vital Signs: Vital signs: Vital Signs Temperature 99.9 F H 01/26/22 09:05 Pulse Rate 97 01/26/22 09:52 Respiratory Rate 16 01/26/22 09:52 Blood Pressure 108/75 01/26/22 09:52 Pulse Oximetry 95 01/26/22 09:52 Oxygen Delivery Me thod 01/26/22 09:51 MDM - COVID Medical Decision Making Suspect COVID-19 testing done discharge home maintain self quarantine till results available supportive cares Medical Records I reviewed the patient's medical records. Lab Data I reviewed the patient's lab results. Radiology Impressions Chest X-Ray 01/26/22 09:15 Impression: Negative chest. Laboratory Results Coronavirus 229E (PCR) Not detected (NOT DETECT) 01/26/22 09:48 SARS-CoV-2 (PCR) Detected (NOT DETECT) A 01/26/22 09:48 SARS-CoV-2 Antigen (Rapid) Negative (Negative) 01/24/22 20:36 SARS-CoV-2 RNA (RT-PCR) Not detected (NOT DETECTED) 12/30/20 15:29 SARS-CoV-2 (PCR) Detected (NOT DETECT) A 01/26/22 09:48 Coronavirus Type 229E (PCR) Not detected (NOT DETECT) 01/26/22 09:48 Discharge Plan Discharge Patient Disposition: Home Clinical Impression: Suspected 2019-nCoV infection Condition: Stable Prescriptions: No Action citalopram [Celexa] 20 mg tablet 20 mg PO DAILY alprazolam 0.5 mg tablet 0.5 mg PO TID PRN (Reason: Anxiety) Rx Instructions: PT STATES SHE NEEDS A REFILL ON THIS. SHE HAS BEEN OUT FOR A WHILE AND FEELS SHE NEEDS THEM. Cortisone (hydrocortisone) 1 % cream 1 applic topical BID PRN (Reason: rash) Qty: 28.35 0RF ondansetron 4 mg tablet,disintegrating 4 mg PO Q6H PRN (Reason: nausea and vomiting) Qty: 14 0RF Discharge Orders: Discharge ED (Routine); Ordered 01/26/22 Ordered By: Gabe Reveles Discharge Diet: Usual diet Discharge Activity: Increase activity as tolerated Activity Restrictions/Additional Instructions: Continued self quarantine until we call with the results of the COVID test today. Supportive cares return if there is significant difficulty breathing. Coding Level of Care Code ED Instrument Technician Helper for Oskar Jean
== END 2022-01-26 09:53 | disposition home or self-care (01) ==
PROVIDERS: Emergency Provider Family Medicine
DX: U07.1 COVID-19 (principal); Z87.891 Personal history of nicotine dependence
CPT/HCPCS: 71045; 87635; 99283

== ENCOUNTER 2022-02-08 06:26 | Emergency (ER) | payer MEDICAID, SELFPAY ==
[2022-02-08 06:29] VITALS: BP 115/81; PULSE 70; RESP 18; TEMP 36.7; O2SAT 97; BMI 38.9
--- NOTE | 2022-02-08 06:36 | XRR_ITS ---
PROCEDURE INFORMATION: Exam: XR Chest Exam date and time: 02/08/2022 6:42 AM Age: 31 years old Clinical indication: Shortness of breath; Patient HX: SOB chest pain since having covid 1 weeks; Additional info: Dyspnea/cough TECHNIQUE: Imaging protocol: Radiologic exam of the chest. Views: 1 view. COMPARISON: CR XR chest 1V portable [id number] 01/26/2022 9:31 AM FINDINGS: Lungs: The lung parenchyma is clear. Pleural spaces: No pneumothorax. No pleural effusion. Heart/Mediastinum: The cardiomediastinal silhouette is within normal limits. Bones/joints: Unremarkable. XR/XR chest 1V portable [id number] IMPRESSION: No acute cardiopulmonary abnormality.
--- NOTE | 2022-02-08 06:41 | ED_ITS ---
HPI - SOB/Dyspnea General: Chief Complaint: Shortness of Breath/Dyspnea Stated Complaint: SOB Time Seen by Provider: 02/08/22 06:28 Source: patient Mode of arrival: ambulatory History of Present Illness: HPI Narrative: 31-year-old female presents emergency room with pleuritic-like left-sided chest pain. She was diagnosed with COVID approximately 10 days ago. She did have a mild cough she developed some pleuritic-like chest pain last few days its been especially worse she has not been short of breath she has not had any further fever or other symptoms. She also expresses some complaints of anxiety because she did not have her alprazolam this morning they called in yesterday from primary care doctor's office but generally she has not picked it up yet. MD elicited complaint: pain with inspiration Onset (ago): day(s) (10) Timing: intermittent Severity: mild Exacerbating factors: inspiration Relieving factors: rest Known history of: other (Recent COVID) Associated symptoms: Reports chest pain, dizziness and lightheadedness; Deny abdominal pain, chest congestion, cough, diaphoresis, extremity pain, fever(s), hemoptysis, myalgias, nausea, orthopnea, palpitations, paresthesias, polydipsia, polyuria, rash, sense of impending doom, syncope or vomiting Review of Systems Const: Denies: fever(s), chills, fatigue, malaise or diaphoresis ENMT: Denies: throat pain, ear or mastoid pain, nasal discharge or nasal congestion Card: Reports: chest pain and lightheadedness; Denies: palpitations, syncope or orthopnea Resp: Denies: dyspnea, productive cough, wheezing, hemoptysis or chest congestion GI: Denies: abdominal pain, nausea or vomiting : Denies: flank pain, difficulty voiding, dysuria, urinary frequency or urinary urgency Musc: Denies: extremity pain Skin/Breast: Denies: rash or pruritus Neuro: Reports: dizziness Endo: Denies: polyuria or polydipsia [facility] ED PFSH: Medical History (Updated 02/08/22 @ 06:57 by Gabe Reveles DO) Blood type A+ COVID-19 Depression with anxiety Surgical History No pertinent past surgical history Family History Grandfather Hypertension paternal Diabetes paternal Grandmother Stroke paternal Other Heart disease Social History Smoking and tobacco status: former smoker Quit status (tobacco): has quit using tobacco Year quit tobacco: 2014 Former quit date comment: .5 pack per day for 2 years Second hand smoke exposure: Yes Alcohol intake: current Alcohol intake frequency: holidays/special occasions only Marital status: Current occupational status: unemployed Current gender identity: Female Special grzegorz needs: No Female Reproductive History: Date of last menstrual period: 01/09/22 Physical Exam Const: COMMON NORMALS: no acute distress GENERAL APPEARANCE: cooperative and comfortable ORIENTATION/CONSCIOUSNESS: Yes awake, Yes oriented to person, Yes oriented to place and Yes oriented to time HENMT: COMMON NORMALS: normocephalic and atraumatic HEAD & SCALP: normocephalic and atraumatic Resp: COMMON NORMALS: normal respiratory effort, No retractions, No use of accessory muscles and clear to auscultation bilaterally AUSCULTATION: clear to auscultation bilaterally Cardio: COMMON NORMALS: regular rate, regular rhythm and No murmurs present (Cardio) RATE: regular rate RHYTHM: regular rhythm Extremity: COMMON NORMALS: normal to inspection, capillary refill normal, no clubbing, cyanosis or edema, no calf tenderness and no pedal edema Neuro: SENSORIUM/ORIENTATION: Yes oriented to person, Yes oriented to place and Yes oriented to time Skin: COMMON NORMALS: no rashes or lesions noted GENERAL SKIN EXAM: no rashes or lesions noted Course Vital Signs: Vital signs: Vital Signs Temperature 98.1 F 02/08/22 06:29 Pulse Rate 70 02/08/22 06:29 Respiratory Rate 18 02/08/22 06:29 Blood Pressure 115/81 02/08/22 06:29 Pulse Oximetry 97 02/08/22 06:29 Oxygen Delivery Me thod 02/08/22 06:29 MDM - SOB/Dyspnea Medical Decision Making Pleuritic chest pain reproduced by deep inspiration. Lungs sound clear. She not tachycardic nor hypoxic no clinical evidence on exam or history suggestive of a PE. There is a significant anxiety component and plays well she concerned about the refills of her alprazolam encouraged her to follow-up with her primary care doctor for that. Medical Records I reviewed the patient's medical records. Lab Data I reviewed the patient's lab results. Discharge Plan Discharge Patient Disposition: Home Clinical Impression: COVID-19, Pleuritic chest pain Condition: Stable Prescriptions: New diclofenac sodium 75 mg tablet,delayed release (DR/EC) 75 mg PO Q12H PRN (Reason: pain) Qty: 20 0RF No Action citalopram [Celexa] 20 mg tablet 20 mg PO DAILY alprazolam 0.5 mg tablet 0.5 mg PO TID PRN (Reason: Anxiety) Rx Instructions: PT STATES SHE NEEDS A REFILL ON THIS. SHE HAS BEEN OUT FOR A WHILE AND FEELS SHE NEEDS THEM. Cortisone (hydrocortisone) 1 % cream 1 applic topical BID PRN (Reason: rash) Qty: 28.35 0RF ondansetron 4 mg tablet,disintegrating 4 mg PO Q6H PRN (Reason: nausea and vomiting) Qty: 14 0RF Discharge Orders: Discharge ED (Routine); Ordered 02/08/22 Ordered By: Gabe Revelse Referrals: Bhupinder Montalvo MD [Primary Care Provider] - Discharge Diet: Usual diet Discharge Activity: Resume usual activity Patient Instructions: Opioid Safety Coding Level of Care Code ED Box Estimator for Chg Fwd Exam Detailed
[2022-02-08 07:17] VITALS: BP 127/75
== END 2022-02-08 07:16 | disposition home or self-care (01) ==
PROVIDERS: Emergency Provider Family Medicine; PCP Family Medicine
DX: U07.1 COVID-19 (principal); R07.89 Other chest pain; Z87.891 Personal history of nicotine dependence
CPT/HCPCS: 71045; 99283

== ENCOUNTER 2022-03-17 21:43 | Emergency (ER) | payer MEDICAID, SELFPAY ==
[2022-03-17 21:45] VITALS: BP 115/76; PULSE 72; RESP 18; TEMP 36.8; O2SAT 95; BMI 29.8
--- NOTE | 2022-03-17 22:12 | ED_ITS ---
HPI - Wound/Laceration General: Chief Complaint: Wound/Laceration Stated Complaint: abd pain Time Seen by Provider: 03/17/22 22:11 History of Present Illness: Patient comes in for a nodule to the lower abdominal wall. Patient reports that it felt tender and she stuck it with a needle causing it to then become red and inflamed. Patient reports tenderness is worsened over the past 2 to 3 days. Associated symptoms: Denies fever(s) Review of Systems Const: Denies: fever(s) Skin/Breast: Reports: changing lesions [facility] ED PFSH: Medical History (Updated 03/17/22 @ 22:20 by JARROD Hamlin) Blood type A+ COVID-19 Depression with anxiety Surgical History No pertinent past surgical history Family History Grandfather Hypertension paternal Diabetes paternal Grandmother Stroke paternal Other Heart disease Social History Smoking and tobacco status: former smoker Quit status (tobacco): has quit using tobacco Year quit tobacco: 2014 Former quit date comment: .5 pack per day for 2 years Second hand smoke exposure: Yes Alcohol intake: current Alcohol intake frequency: holidays/special occasions only Marital status: Current occupational status: unemployed Current gender identity: Female Special grzegorz needs: No Female Reproductive History: Date of last menstrual period: 12/21/21 Physical Exam Const: COMMON NORMALS: alert HENMT: COMMON NORMALS: normocephalic HEAD & SCALP: normocephalic Neck/C-Spine: COMMON NORMALS: full ROM Resp: COMMON NORMALS: normal respiratory effort and clear to auscultation bilaterally AUSCULTATION: clear to auscultation bilaterally GI: INSPECTION: Yes GI erythema present (Central lower abdomen approximately 6 cm with central induration) Extremity: COMMON NORMALS: normal to inspection Neuro: SENSORIUM/ORIENTATION: Yes alert Skin: LESIONS: lesion noted (Lower abdomen with surrounding redness and central indurated nodule) Course Vital Signs: Vital signs: Vital Signs Temperature 98.2 F 03/17/22 21:45 Pulse Rate 72 03/17/22 21:45 Respiratory Rate 18 03/17/22 21:45 Blood Pressure 115/76 03/17/22 21:45 Pulse Oximetry 95 03/17/22 21:45 Oxygen Delivery Me thod 03/17/22 21:45 MDM - Wound/Laceration Medical Decision Making Patient comes in today for concerns of a nodule she has palpated for years to her central lower abdomen. Patient reports that felt like it had fluid around it and she stuck it with a romance that. Patient reported some clear but blood- tinged liquid from the area. On exam patient has a palpable area of induration approximately 2 cm with a central nodule that is about 1 cm without any fluctuance. Patient has about a 6 cm area of redness surrounding this. Differential diagnosis includes but not limited to cellulitis, abscess, puncture wound with infection, lipoma, sebaceous cyst. At this time there is no sign of an abscess that needs to be drained. We will start patient Augmentin 1 tablet twice a day for the next 7 days for some cellulitis. We will have case management have patient follow-up with surgeon for further evaluation of the nodule and possible excision. Discharge Plan Discharge Patient Disposition: Home Clinical Impression: Nodule of skin of abdomen Cellulitis Qualifiers: Site of cellulitis: trunk Site of cellulitis of trunk: abdominal wall Qualified Code(s): L03.311 - Cellulitis of abdominal wall Condition: Stable Prescriptions: New amoxicillin-pot clavulanate 875-125 mg tablet 1 tab PO BID Qty: 14 0RF No Action citalopram [Celexa] 20 mg tablet 20 mg PO DAILY alprazolam 0.5 mg tablet 0.5 mg PO TID PRN (Reason: Anxiety) Rx Instructions: PT STATES SHE NEEDS A REFILL ON THIS. SHE HAS BEEN OUT FOR A WHILE AND FEELS SHE NEEDS THEM. Cortisone (hydrocortisone) 1 % cream 1 applic topical BID PRN (Reason: rash) Qty: 28.35 0RF ondansetron 4 mg tablet,disintegrating 4 mg PO Q6H PRN (Reason: nausea and vomiting) Qty: 14 0RF diclofenac sodium 75 mg tablet,delayed release (DR/EC) 75 mg PO Q12H PRN (Reason: pain) Qty: 20 0RF Discharge Orders: Discharge ED (Routine); Ordered 03/17/22 Ordered By: Gabriel Byers Referrals: Bhupinder Montalvo MD [Primary Care Provider] - Discharge Diet: Usual diet Discharge Activity: Increase activity as tolerated Patient Instructions: Cellulitis (ED) Activity Restrictions/Additional Instructions: Use acetaminophen or ibuprofen for pain. Take antibiotics 1 tablet twice a day for the next 7 days. Case management will contact you regarding follow-up appointment with surgeon for evaluation of nodule and removal. Coding Level of Care Code ED Franchise Sales Director for Oskar Jean
[2022-03-17] MEDS: amoxicillin-clav 875-125 mg Tablet 1 TAB PO (22:42)
--- NOTE | 2022-03-20 10:22 | PC.SOCIAL ---
Addendum entered by Maria Teresa Ontiveros 03/23/22 16:11: ed manager received the following message from the general surgery clinic regarding follow up appointment: Called patient couldn't get through > mailing letter ed manager called phone number [phone] - phone call would not go thru, classification case manager unable to leave a voicemail. Original Note: General Surgery F/u Message sent to general surgery clinic for f/u appointment. Clinic will contact patient with appointment date and time.
== END 2022-03-17 22:45 | disposition home or self-care (01) ==
PROVIDERS: Emergency Provider Nurse Practitioner Family; PCP Family Medicine
DX: L03.311 Cellulitis of abdominal wall (principal); R22.2 Localized swelling, mass and lump, trunk; Z87.891 Personal history of nicotine dependence
CPT/HCPCS: 99283

== ENCOUNTER 2022-04-19 15:52 | Emergency (ER) | payer MEDICAID, SELFPAY ==
[2022-04-19 18:16] VITALS: BMI 39.6
[2022-04-19 18:21] VITALS: BP 140/82; PULSE 74; RESP 18; TEMP 36.7; O2SAT 97
--- NOTE | 2022-04-19 18:23 | PC.NURSE ---
Called for patient to triage at [phone] - pt was not in waiting room. Pt came up to registration stating that she had been asleep in her car at 1809. Triaged at 1814.
--- NOTE | 2022-04-19 20:46 | W.ED.NECK ---
HPI - Neck Pain/Injury General: Chief Complaint: Neck Pain/Injury Stated Complaint: Neck pain Time Seen by Provider: 04/19/22 20:45 History of Present Illness: 32-year-old female comes in today for complaints of right side anterior neck discomfort. Patient reports tenderness along the lateral right tracheal side. Patient reports swallowing does not make the pain worse. Patient reports moving her neck does not make the pain worse. Patient reports pain is mainly elicited when she touches the area. Patient appears nontoxic. Patient reports that her son did test positive for the flu but she tested negative on Sunday. Patient reports no systemic symptoms. Patient was seen by her primary care and and he felt that it was most likely a strain. Review of Systems Const: Denies: fever(s) ENMT: Denies: throat pain Resp: Denies: productive cough Musc: Reports: neck pain PFS ED PFSH: Medical History (Updated 04/19/22 @ 21:13 by JARROD Hamlin) Blood type A+ COVID-19 Depression with anxiety Folliculitis Surgical History No pertinent past surgical history Family History (Updated 03/30/22 @ 10:14 by Sonja Arriola LPN) Grandfather Hypertension paternal Diabetes paternal Grandmother Stroke paternal Other Heart disease Denies family history of Colon cancer Ovarian cancer Hypercholesteremia Breast cancer Uterine cancer Thyroid disease Social History (Updated 03/30/22 @ 10:09 by Sonja Arriola LPN) Smoking and tobacco status: former smoker Female Reproductive History: Date of last menstrual period: 02/17/22 Physical Exam Const: COMMON NORMALS: alert HENMT: COMMON NORMALS: normocephalic HEAD & SCALP: normocephalic THROAT: posterior oropharynx abnormal (Clear drainage or streaking) Neck/C-Spine: GENERAL: No anterior neck swelling and Yes tender (Right anterior neck) Resp: COMMON NORMALS: normal respiratory effort and clear to auscultation bilaterally AUSCULTATION: clear to auscultation bilaterally Cardio: COMMON NORMALS: regular rate RATE: regular rate Extremity: COMMON NORMALS: normal to inspection Neuro: SENSORIUM/ORIENTATION: Yes alert Skin: COMMON NORMALS: turgor normal GENERAL SKIN EXAM: turgor normal Course Vital Signs: Vital signs: Vital Signs Temperature 98.1 F 04/19/22 18:21 Pulse Rate 74 04/19/22 18:21 Respiratory Rate 18 04/19/22 18:21 Blood Pressure 140/82 04/19/22 18:21 Pulse Oximetry 97 04/19/22 18:21 Oxygen Delivery Me thod 04/19/22 18:21 MDM - Neck Pain/Injury Medical Decision Making Patient came in today for some complaints of right anterior neck discomfort. On exam patient has some tenderness on the right side of the anterior neck along the right trachea with some palpation of a probable cervical anterior lymph chain. No redness is noted. No compromise of airway is noted. Patient is swallowing and managing secretions well. Differential diagnosis includes anterior neck strain, tendinitis, lymphadenitis, lymphadenopathy, upper respiratory infection. Review of the record noted that patient had a CT of the soft tissues of the neck about 2 years ago which did show that she had some large cervical lymph nodes of the neck that were on the big side of normal. Remainder of exam was unremarkable. At this time I do not see a need for further radiation or imaging and suspect that this is most likely due to an upper respiratory infection due to the drainage in the posterior pharynx. I recommended acetaminophen and ibuprofen for the pain. A dose of steroid to help with nasal drainage. And follow-up and monitoring for worsening symptoms. Patient reported understanding and agreed to plan. Discharge Plan Discharge Patient Disposition: Home Clinical Impression: PND (post-nasal drip), Anterior neck pain Condition: Stable Prescriptions: No Action citalopram [Celexa] 20 mg tablet 20 mg PO DAILY alprazolam 0.5 mg tablet 0.5 mg PO TID PRN (Reason: Anxiety) Rx Instructions: PT STATES SHE NEEDS A REFILL ON THIS. SHE HAS BEEN OUT FOR A WHILE AND FEELS SHE NEEDS THEM. Discharge Orders: Discharge ED (Routine); Ordered 04/19/22 Ordered By: Gabriel Byers Referrals: Bhupinder Montalvo MD [Primary Care Provider] - Discharge Diet: Usual diet Discharge Activity: Increase activity as tolerated Activity Restrictions/Additional Instructions: Drink plenty of water and fluids. Use ice or heat to the area for comfort. Use acetaminophen and ibuprofen for pain. Monitor site for worsening swelling and redness. Follow-up with primary care as needed. Return to ED for increased swelling and redness to the neck, fever greater than 100.4, difficulty breathing or swallowing. Coding Level of Care Code ED Animal Assisted Therapist for Jackieg Ted
[2022-04-19] MEDS: dexamethasone 10 mg/mL INJ IM (21:20)
[2022-04-19 21:29] VITALS: BP 142/78; PULSE 78; RESP 16; O2SAT 98
== END 2022-04-19 21:32 | disposition home or self-care (01) ==
PROVIDERS: Emergency Provider Nurse Practitioner Family; PCP Family Medicine
DX: R09.82 Postnasal drip (principal); M54.2 Cervicalgia
CPT/HCPCS: 96372; 99284; J1100

== ENCOUNTER 2022-04-21 22:29 | Emergency (ER) | payer MEDICAID, SELFPAY ==
[2022-04-21 22:39] VITALS: BP 128/88; PULSE 78; RESP 18; TEMP 36.9; O2SAT 97; BMI 39.6
--- NOTE | 2022-04-21 23:25 | ED_ITS ---
HPI - Wound/Laceration General: Chief Complaint: Wound/Laceration Stated Complaint: ABD Pain Time Seen by Provider: 04/21/22 22:55 Source: patient Mode of arrival: ambulatory Limitations: no limitations History of Present Illness: 32-year-old female states she noticed an abscess to her lower abdomen 2 days ago. States that it is tender to touch with some redness she has had no drainage she denies any fevers she denies any worsening proving factors states she does have a pain at the site that sharp in nature rated a 4 out of 10. Associated symptoms: Denies chills, fever(s), nausea or vomiting Review of Systems Const: Denies: fever(s), chills, body aches or change in appetite Eyes: Denies: blurry vision or eye discomfort ENMT: Denies: throat pain or dental pain Card: Denies: chest pain Resp: Denies: dyspnea GI: Denies: abdominal pain, nausea, vomiting or diarrhea : Denies: dysuria Musc: Denies: neck pain or back pain Skin/Breast: Denies: rash Neuro: Denies: headache(s) Psych: Denies: depression Louis/Lymph: Denies: easy bruising All/Imm: Denies: urticaria PFSH ED PFSH: Medical History Blood type A+ COVID-19 Depression with anxiety Folliculitis Surgical History No pertinent past surgical history Family History Grandfather Hypertension paternal Diabetes paternal Grandmother Stroke paternal Other Heart disease Denies family history of Colon cancer Ovarian cancer Hypercholesteremia Breast cancer Uterine cancer Thyroid disease Social History Smoking and tobacco status: former smoker Female Reproductive History: Date of last menstrual period: 02/17/22 Physical Exam Const: COMMON NORMALS: no acute distress, patient oriented x3 and healthy appearing HENMT: COMMON NORMALS: normocephalic and atraumatic HEAD & SCALP: normocephalic and atraumatic Eye: COMMON NORMALS: conjunctivae normal CONJUNCTIVA: Yes conjunctivae normal Neck/C-Spine: COMMON NORMALS: full ROM and supple Chest: COMMONS NORMALS: normal inspection of the chest Resp: COMMON NORMALS: normal respiratory effort Cardio: COMMON NORMALS: regular rate, regular rhythm and No murmurs present (Cardio) RATE: regular rate RHYTHM: regular rhythm GI: COMMON NORMALS: Soft to palpation and non-tender PALPATION: Yes Soft to palpation OTHER: 2 cm abscess noted to lower abdomen no erythema Extremity: COMMON NORMALS: normal to inspection and full ROM Neuro: COMMON NORMALS: patient oriented x3, moves all extremities and no focal motor deficits Psych: COMMON NORMALS: mental status grossly normal, Normal thought process present and cooperative THOUGHT PROCESS: Normal thought process present Skin: COMMON NORMALS: no rashes or lesions noted and no wounds GENERAL SKIN EXAM: no rashes or lesions noted Procedures Abscess I/D Site: abdomen Local Anesthetic: lidocaine 1% Amount of anesthesia used (mL): 5 Technique: incised with #11 blade Packing used?: none Course Vital Signs: Vital signs: Vital Signs Temperature 98.5 F 04/21/22 22:39 Pulse Rate 78 04/21/22 22:39 Respiratory Rate 18 04/21/22 22:39 Blood Pressure 128/88 04/21/22 22:39 Pulse Oximetry 97 04/21/22 22:39 Oxygen Delivery Me thod 04/21/22 22:39 MDM - Wound/Laceration Medical Decision Making Patient presents here with an abscess to her lower abdomen I did incise and drain it we will place her on Bactrim she is well-appearing here no signs of sepsis. Discharge Plan Discharge Patient Disposition: Home Clinical Impression: Abscess Condition: Stable Prescriptions: New sulfamethoxazole-trimethoprim [Bactrim DS] 800-160 mg tablet 1 tab PO BID 10 Days Qty: 20 0RF No Action citalopram [Celexa] 20 mg tablet 20 mg PO DAILY alprazolam 0.5 mg tablet 0.5 mg PO TID PRN (Reason: Anxiety) Rx Instructions: PT STATES SHE NEEDS A REFILL ON THIS. SHE HAS BEEN OUT FOR A WHILE AND FEELS SHE NEEDS THEM. Discharge Orders: Discharge ED (Routine); Ordered 04/21/22 Ordered By: Jude Hendricks Referrals: Bhupinder Montalvo MD [Primary Care Provider] - Discharge Diet: Advance as tolerated Discharge Activity: Resume usual activity Patient Instructions: Abscess (ED) Coding Level of Care Code ED Control Room Technician for Oskar Jean
[2022-04-21] MEDS: HYDROcodone-acetaminophen 5-325 mg Tablet 1 TAB PO (23:30)
[2022-04-21 23:34] VITALS: BP 136/97; PULSE 73; RESP 14; O2SAT 96
[2022-04-21 23:44] VITALS: BP 136/97; PULSE 73; RESP 14; O2SAT 96
== END 2022-04-21 23:55 | disposition home or self-care (01) ==
PROVIDERS: Emergency Provider Emergency Medicine; PCP Family Medicine
DX: L02.211 Cutaneous abscess of abdominal wall (principal); Z87.891 Personal history of nicotine dependence
CPT/HCPCS: 10060; 99283

== ENCOUNTER 2022-05-07 21:21 | Emergency (ER) | payer MEDICAID, SELFPAY ==
[2022-05-07 21:27] VITALS: BMI 39.4
[2022-05-07 21:31] VITALS: BP 126/82; PULSE 79; RESP 16; TEMP 36.8; O2SAT 98
--- NOTE | 2022-05-07 23:52 | ED_ITS ---
HPI - Skin/Abscess/Foreign Bdy General: Chief complaint: Skin/Abscess/Foreign Body Stated complaint: says she has a cyst on stomach hurts Time Seen by Provider: 05/07/22 23:39 History of Present Illness: Patient is in today for abscess on her belly. She reports that she was in a while back and had this drained. She reports that she was on antibiotics and it seemed to heal up but over the past 2 days it has started to return. She denies any fever, chills, nausea, vomiting. She denies . Reports that she has had off-and-on issues with the same area since she was 16 years old. Associated symptoms: Deny chills, fever(s), nausea or vomiting Review of Systems Const: Denies: fever(s), chills or body aches Card: Denies: chest pain or palpitations Resp: Denies: dyspnea GI: Denies: abdominal pain, nausea or vomiting Skin/Breast: Reports: other (Abscess under lower abdominal fold) [facility] ED PFSH: Medical History Blood type A+ COVID-19 Depression with anxiety Folliculitis Surgical History No pertinent past surgical history Family History Grandfather Hypertension paternal Diabetes paternal Grandmother Stroke paternal Other Heart disease Denies family history of Colon cancer Ovarian cancer Hypercholesteremia Breast cancer Uterine cancer Thyroid disease Social History Smoking and tobacco status: former smoker Female Reproductive History: Date of last menstrual period: 05/07/22 Physical Exam Const: COMMON NORMALS: no acute distress, patient oriented x3 and alert NUTRITIONAL APPEARANCE: obese morbidly obese Resp: COMMON NORMALS: normal respiratory effort and No use of accessory muscles Neuro: COMMON NORMALS: patient oriented x3 SENSORIUM/ORIENTATION: Yes alert Skin: NARRATIVE SKIN EXAM: There is a pea-sized abscess on the underside of the patient's pannus. This is slightly erythematous. Tender to palpation. Not fluctuant. Medial to the pea- sized abscess there is a smaller red area that is slightly tender to palpation also not fluctuant. Course Vital Signs: Vital signs: Vital Signs Temperature 98.2 F 05/07/22 21:31 Pulse Rate 79 05/07/22 21:31 Respiratory Rate 16 05/07/22 21:31 Blood Pressure 126/82 05/07/22 21:31 Pulse Oximetry 98 05/07/22 21:31 Oxygen Delivery Me thod 05/07/22 21:31 MDM - Skin/Abscess/Foreign Bdy Medicial Decision Making Consider cellulitis versus abscess. Explained to the patient that there is not enough drainable fluid to consider I&D at this point. I recommend antibiotic treatment with Keflex. We also discussed possibility of suppurative hidradenitis given that she has had recurring issues in the same area since the age of 16. I will treat with antibiotic this time. Discussed conservative treatments at home including warm moist compresses to the area. Discussed monitoring closely for signs of worsening. Follow-up with primary care provider. Return to the ER as needed for new or worsening symptoms. Discharge Plan Discharge Patient Disposition: Home Clinical Impression: Abscess of skin or subcutaneous tissue Condition: Stable Prescriptions: New cephalexin 500 mg capsule 500 mg PO Q12H 7 Days Qty: 14 0RF No Action citalopram [Celexa] 20 mg tablet 20 mg PO DAILY alprazolam 0.5 mg tablet 0.5 mg PO TID PRN (Reason: Anxiety) Rx Instructions: PT STATES SHE NEEDS A REFILL ON THIS. SHE HAS BEEN OUT FOR A WHILE AND FEELS SHE NEEDS THEM. Discharge Orders: Discharge ED (Routine); Ordered 05/07/22 Ordered By: Geraldine Oakley Referrals: Bhupinder Montalvo MD [Primary Care Provider] - Discharge Diet: Usual diet Discharge Activity: Resume usual activity Patient Instructions: Abscess (ED) Activity Restrictions/Additional Instructions: Take antibiotics as directed. Your first dose was given in ER tonight you can fill the prescription tomorrow and start tomorrow morning. Warm moist compresses 3-4 times per day. Monitor closely for worsening symptoms including increased pain, swelling, fever, chills. Follow-up with primary care provider as needed. Return to the ER for new or worsening symptoms. Keep area clean and dry with Dial soap and water. Reduce skin to skin contact is much as possible in that area to prevent future infections and irritations. Coding Level of Care Code ED Cyber Crime Investigator for Oskar Jean
[2022-05-08] MEDS: cephALEXin 500 mg Capsule PO (00:08)
== END 2022-05-08 00:10 | disposition home or self-care (01) ==
PROVIDERS: Emergency Provider Nurse Practitioner Family; PCP Family Medicine
DX: L02.211 Cutaneous abscess of abdominal wall (principal)
CPT/HCPCS: 99283

== ENCOUNTER 2022-05-29 13:42 | Emergency (ER) | payer MEDICAID, SELFPAY ==
[2022-05-29 14:03] VITALS: BP 131/90; PULSE 77; RESP 13; TEMP 36.9; O2SAT 97
--- NOTE | 2022-05-29 14:41 | ED_ITS ---
HPI - Neck Pain/Injury General: Chief Complaint: Neck Pain/Injury Stated Complaint: Left neck pain Time Seen by Provider: 05/29/22 14:10 Source: patient Mode of arrival: ambulatory Limitations: no limitations History of Present Illness: Patient is a 32-year-old female who presents to ED today with a complaint of left-sided neck pain. Patient tells me pain initially began 2 weeks ago. She first tells me that this issue has been intermittently present over the past 4 months however after reviewing patient's review his medical records and discussing with patient this problem has been present much l onger. It looks like she was first seen in our ED on 01/2020 for similar symptoms and has been seen multiple times since then for identical symptoms. Patient admittedly is very anxious and has a fear of developing cancer. She seems frustrated that nobody can give her a definitive diagnosis for her discomfort. Patient has had CT imaging back in 2019 which showed upper limit of normal sized lymph nodes. She has followed up with ENT Dr. Tim who did scope her in his office and she was told this was normal. She states pain will come on for anywhere from a few days to 2 weeks before subsiding on its own and she will often have several weeks where she is asymptomatic. She has had similar pains on the right side of her neck as well. She denies headache or neuro deficits. No unintentional weight loss or fatigue. MD complaint: neck pain Onset (ago): year(s) Radiation: left lateral Duration: intermittent Relieving factors: none Exacerbating factors: none Associated symptoms: Reports no associated symptoms; Denies dizziness or headache(s) Treatments prior to arrival: none Review of Systems Const: Denies: fever(s), chills, body aches, change in appetite, change in weight, fatigue or malaise Eyes: Denies: change in vision, blurry vision, photophobia, floaters or seeing flashes ENMT: Denies: throat pain or odynophagia Musc: Reports: neck pain Neuro: Denies: headache(s), numbness in extremities, weakness in extremities, sensory changes, dizziness, vertigo or confusion Psych: Reports: anxiety PFSH ED PFSH: Medical History Blood type A+ COVID-19 Depression with anxiety Folliculitis Psychiatric care Surgical History No pertinent past surgical history Family History Grandfather Hypertension paternal Diabetes paternal Grandmother Stroke paternal Other Heart disease Denies family history of Colon cancer Ovarian cancer Hypercholesteremia Breast cancer Uterine cancer Thyroid disease Social History Smoking and tobacco status: former smoker Female Reproductive History: Date of last menstrual period: 05/07/22 Physical Exam Const: COMMON NORMALS: no acute distress, patient oriented x3, no limitations, healthy appearing, alert and well nourished ORIENTATION/CONSCIOUSNESS: Yes awake, Yes oriented to person, Yes oriented to place and Yes oriented to time HENMT: COMMON NORMALS: normocephalic, atraumatic, hearing grossly normal bilaterally, external ears normal, EAC's normal, TM's normal bilaterally, Normal external nose present, oropharynx normal, dentition normal and gingiva normal HEAD & SCALP: normal to inspection, normocephalic and atraumatic FACE & SINUS: normal facial exam NOSE: Normal external nose present EXTERNAL EAR: Yes external ears normal EXTERNAL AUDITORY CANAL: EAC's normal TYMPANIC MEMBRANE: TM's normal bilaterally MOUTH: Normal oral and palatal mucosa present, lip normal and tongue normal TEETH & GINGIVA: Yes fair dentition THROAT: posterior oropharynx normal, tonsils normal and uvula midline Eye: GENERAL EYE: appearance normal, both eyes and all related structures Neck/C-Spine: COMMON NORMALS: full ROM, no lymphadenopathy, supple, no meningeal signs, no JVD, Thyroid normal and No carotid bruits GENERAL: Yes normal visual inspection THYROID: Thyroid normal CERVICAL SPINE: Yes cervical ROM normal OTHER: I do not appreciate any abnormalities on visual inspection or palpation of patient's neck Resp: COMMON NORMALS: normal respiratory effort Cardio: COMMON NORMALS: no JVD Neuro: JIMI COMA SCALE: document GCS findings Jimi coma scale eye opening: Spontaneous [place] coma scale verbal response: Orientated Jimi coma scale motor response: Obey commands Jimi coma scale total score: 15 COMMON NORMALS: patient oriented x3, CN's II-XII intact bilaterally, moves all extremities, no focal motor deficits and no sensory deficits noted SENSORIUM/ORIENTATION: Yes alert, Yes oriented to person, Yes oriented to place and Yes oriented to time MENINGEAL SIGNS: Yes no meningeal signs Course Vital Signs: Vital signs: Vital Signs Temperature 98.5 F 05/29/22 14:03 Pulse Rate 77 05/29/22 14:03 Respiratory Rate 13 05/29/22 14:03 Blood Pressure 131/90 05/29/22 14:03 Pulse Oximetry 97 05/29/22 14:03 Oxygen Delivery Me thod 05/29/22 14:03 MDM - Neck Pain/Injury Medical Decision Making Offered reassurance to patient at this time and explained to her that there is no indication for emergent work-up or imaging today based on her history and physical exam. Recommend she follow-up with primary care. Discharge Plan Discharge Patient Disposition: Home Clinical Impression: Neck pain on left side Condition: Stable Prescriptions: No Action citalopram [Celexa] 20 mg tablet 20 mg PO DAILY alprazolam 0.5 mg tablet 0.5 mg PO TID PRN (Reason: Anxiety) Rx Instructions: PT STATES SHE NEEDS A REFILL ON THIS. SHE HAS BEEN OUT FOR A WHILE AND FEELS SHE NEEDS THEM. Discharge Orders: Discharge ED (Routine); Ordered 05/29/22 Ordered By: Radha Birmingham Referrals: Bhupinder Montalvo MD [Primary Care Provider] - Coding Level of Care Code ED Supervisor [facility] for Oskar Jean
== END 2022-05-29 15:12 | disposition home or self-care (01) ==
PROVIDERS: Emergency Provider Physician Assistant; PCP Family Medicine
DX: M54.2 Cervicalgia (principal)
CPT/HCPCS: 99282

== ENCOUNTER 2022-06-06 20:21 | Emergency (ER) | payer MEDICAID, SELFPAY ==
[2022-06-06 20:52] VITALS: BP 132/84; PULSE 77; RESP 18; TEMP 36.9; O2SAT 98; BMI 39.4
[2022-06-06 21:22] VITALS: BP 140/81; PULSE 77; RESP 20; O2SAT 97
--- NOTE | 2022-06-06 21:26 | W.ED.NECK ---
HPI - Neck Pain/Injury General: Chief Complaint: Neck Pain/Injury Stated Complaint: Right side neck pain Time Seen by Provider: 06/06/22 21:18 Source: patient Mode of arrival: ambulatory Limitations: no limitations History of Present Illness: 32-year-old female who states she been having left-sided neck pain for months she seen ENT her PCP states that everything is checked out normal she states that today started having some pain on her left side states is on the left lateral side worse with touching her movement no fever no difficulty swallowing denies any vomiting Associated symptoms: Denies headache(s) or nausea Review of Systems Const: Denies: fever(s), chills, body aches or change in appetite Eyes: Denies: blurry vision or eye discomfort ENMT: Denies: throat pain or dental pain Card: Denies: chest pain Resp: Denies: dyspnea GI: Denies: abdominal pain, nausea, vomiting or diarrhea : Denies: dysuria Musc: Reports: neck pain Skin/Breast: Denies: rash Neuro: Denies: headache(s) Psych: Denies: depression Louis/Lymph: Denies: easy bruising All/Imm: Denies: urticaria PFSH ED PFSH: Medical History Blood type A+ COVID-19 Depression with anxiety Folliculitis Psychiatric care Surgical History No pertinent past surgical history Family History Grandfather Hypertension paternal Diabetes paternal Grandmother Stroke paternal Other Heart disease Denies family history of Colon cancer Ovarian cancer Hypercholesteremia Breast cancer Uterine cancer Thyroid disease Social History Smoking and tobacco status: former smoker Female Reproductive History: Date of last menstrual period: 05/07/22 Physical Exam Const: COMMON NORMALS: no acute distress, patient oriented x3 and healthy appearing HENMT: COMMON NORMALS: normocephalic and atraumatic HEAD & SCALP: normocephalic and atraumatic Eye: COMMON NORMALS: Equal, round and reactive pupils present and EOMs intact bilaterally PUPIL: Yes Equal, round and reactive pupils present OTHER: Slight tenderness to right side of the neck no masses no abscess Neck/C-Spine: COMMON NORMALS: full ROM and supple Chest: COMMONS NORMALS: normal inspection of the chest Resp: COMMON NORMALS: normal respiratory effort Cardio: COMMON NORMALS: regular rate and No murmurs present (Cardio) RATE: regular rate GI: INSPECTION: Yes normal to inspection Extremity: COMMON NORMALS: normal to inspection and full ROM Neuro: COMMON NORMALS: patient oriented x3, moves all extremities and no focal motor deficits Psych: COMMON NORMALS: mental status grossly normal, Normal thought process present and cooperative THOUGHT PROCESS: Normal thought process present Skin: COMMON NORMALS: no rashes or lesions noted and no wounds GENERAL SKIN EXAM: no rashes or lesions noted Course Vital Signs: Vital signs: Vital Signs Temperature 98.4 F 06/06/22 20:52 Pulse Rate 77 06/06/22 21:22 Respiratory Rate 20 H 06/06/22 21:22 Blood Pressure 140/81 06/06/22 21:22 Pulse Oximetry 97 06/06/22 21:22 Oxygen Delivery Me thod 06/06/22 21:22 MDM - Neck Pain/Injury Medical Decision Making Patient presents here with right-sided neck pain her exam here is benign she has had chronic pain for months with neck pain on the left side where she is seen ENT and her PCP states that today it dropped her right side her exam is benign she has no signs of mass she is stable for discharge she is to follow back up with ENT. Discharge Plan Discharge Patient Disposition: Home Clinical Impression: Neck pain on right side Condition: Stable Prescriptions: New methocarbamol 750 mg tablet 750 mg PO Q6H PRN (Reason: spasms) Qty: 20 0RF Naprosyn 500 mg tablet 500 mg PO BID PRN (Reason: pain) Qty: 20 0RF No Action citalopram [Celexa] 20 mg tablet 20 mg PO DAILY alprazolam 0.5 mg tablet 0.5 mg PO TID PRN (Reason: Anxiety) Rx Instructions: PT STATES SHE NEEDS A REFILL ON THIS. SHE HAS BEEN OUT FOR A WHILE AND FEELS SHE NEEDS THEM. Discharge Orders: Discharge ED (Routine); Ordered 06/06/22 Ordered By: Jude Hendricks Referrals: Michael Song MD [Physician] - 1-3 days Discharge Diet: Advance as tolerated Discharge Activity: Resume usual activity Patient Instructions: Acute Neck Pain (ED) Coding Level of Care Code ED Ordnance Mechanic for Oskar Jean
[2022-06-06] MEDS: ketorolac 60 mg/2 mL INJ IM (21:30)
[2022-06-06 21:37] VITALS: RESP 18; O2SAT 97
--- NOTE | 2022-06-07 08:54 | DCPLANNER ---
Addendum entered by Maria Teresa Ontiveros 08/23/22 07:22: Patient had a follow up appointment with ENT - patient did not attend appointment Addendum entered by Maria Teresa Ontiveros 06/13/22 10:59: Patient has a follow up appointment scheduled for Sunday, July 24, [address]22 at 3:[address] Song at ENT. Clinic will call patient with appointment information. Original Note: senior online marketing manager had message to schedule a follow up appointment for patient with ENT. senior online marketing manager sent patients information to the front office staff at ENT. Patients information will be printed and reviewed. Clinic will call patient with appointment information.
== END 2022-06-06 21:37 | disposition home or self-care (01) ==
PROVIDERS: Emergency Provider Emergency Medicine
DX: M54.2 Cervicalgia (principal); Z87.891 Personal history of nicotine dependence
CPT/HCPCS: 96372; 99284; J1885

== ENCOUNTER 2022-08-02 10:39 | Outpatient (CLI) | payer MEDICAID, SELFPAY ==
--- NOTE | 2022-08-02 10:54 | US_ITS ---
WS: [id number] ULTRASOUND SOFT TISSUES bilateral cervical chains. HISTORY: CERVICALGIA/LOCALIZED ENLARGED LYMPH NODES COMPARISON: None available. TECHNIQUE: 2-D and color Doppler imaging is submitted. There are small benign-appearing lymph nodes along the cervical chains. Normal fatty estelita and normal size and shape of the lymph nodes. No adenopathy. US/US soft tissue/extremity [id number] IMPRESSION: Normal bilateral cervical chain lymph nodes.
== END 2022-08-02 10:40 | disposition home or self-care (01) ==
PROVIDERS: PCP Family Medicine; Visit Provider Otolaryngology
DX: R59.0 Localized enlarged lymph nodes (principal)
CPT/HCPCS: 76882

== ENCOUNTER 2022-08-22 15:39 | Emergency (ER) | payer MEDICAID, SELFPAY ==
[2022-08-22 15:56] VITALS: BP 126/85; PULSE 79; RESP 16; TEMP 36.6; O2SAT 96
--- NOTE | 2022-08-22 17:10 | CTR_ITS ---
PROCEDURE INFORMATION: Exam: CT Head Without Contrast Exam date and time: 08/22/2022 5:23 PM Age: 32 years old Clinical indication: Patient HX: Headache wo trauma; TECHNIQUE: Imaging protocol: Computed tomography of the head without contrast. Radiation optimization: All CT scans at this facility use at least one of these dose optimization techniques: automated exposure control; mA and/or kV adjustment per patient size (includes targeted exams where dose is matched to clinical indication); or iterative reconstruction. REPORTING DATA: Count of CT and Cardiac NM exams in prior 12 months: This patient has received 0 known CTs and 0 known cardiac nuclear medicine studies in the 12 months prior to the current study. COMPARISON: CT neck w con* [id number] 03/05/2020 8:09 AM RADIATION DOSE METRICS: Total DLP (mGy-cm): 1105.98 FINDINGS: Brain: Normal. No hemorrhage. Unremarkable white matter. No mass effect. Cerebral ventricles: No ventriculomegaly. Paranasal sinuses: Visualized sinuses are unremarkable. No fluid levels. Mastoid air cells: Visualized mastoid air cells are well aerated. Bones/joints: Unremarkable. No acute fracture. Soft tissues: Unremarkable. CT/CT head wo con* [id number] IMPRESSION: No acute intracranial abnormality.
--- NOTE | 2022-08-22 17:11 | W.ED.HA ---
HPI - Headache General: Chief Complaint: Headache Stated Complaint: Head pain Time Seen by Provider: 08/22/22 17:03 History of Present Illness: Presents to the ER with complaints of headache. The headache for several days. She describes it as an ice pick headache that comes and sharp stabbing intermittent and not lasting very long. She also describes a bump on her head on the right occipital region that she has picked and now she feels a swollen area behind her right ear that is very tender. Patient admits to having a fear of cancer and she is worried that this may be cancer. MD elicited complaint: headache Onset (ago): day(s) Severity: moderate Quality & Timing: sharp and similar to previous headaches Exacerbating factors: none Associated symptoms: Reports no associated symptoms; Deny chest pain, fever(s), nausea, rash or vomiting Treatments prior to arrival: none Review of Systems General: Reports: 10 or more systems reviewed and unremarkable except in HPI and below Const: Denies: fever(s), chills or body aches Eyes: Denies: change in vision, blurry vision or blind spots ENMT: Denies: throat pain or odynophagia Card: Denies: chest pain, palpitations or irregular heart rhythm Resp: Denies: dyspnea, productive cough or non-productive cough GI: Denies: abdominal pain, nausea, vomiting or diarrhea : Denies: flank pain or difficulty voiding Musc: Denies: neck pain, back pain or extremity pain Skin/Breast: Denies: rash, pruritus or erythema Neuro: Reports: headache(s); Denies: numbness in extremities, weakness in extremities, sensory changes, lack of coordination, difficulty walking or frequent falls Psych: Denies: anxiety or depression Endo: Denies: polyuria or polydipsia Louis/Lymph: Denies: easy bruising or easy bleeding All/Imm: Denies: urticaria or throat swelling PFS ED PFSH: Medical History Blood type A+ COVID-19 Depression with anxiety Folliculitis Psychiatric care Surgical History No pertinent past surgical history Family History Grandfather Hypertension paternal Diabetes paternal Grandmother Stroke paternal Other Heart disease Denies family history of Colon cancer Ovarian cancer Hypercholesteremia Breast cancer Uterine cancer Thyroid disease Social History Smoking and tobacco status: former smoker Physical Exam Const: COMMON NORMALS: no acute distress, average body habitus, patient oriented x3, no limitations, healthy appearing, alert and well nourished HENMT: COMMON NORMALS: normocephalic and atraumatic HEAD & SCALP: normocephalic, atraumatic and other (Small bump on right posterior scalp region looks irritated no erythema stre) Eye: COMMON NORMALS: Equal, round and reactive pupils present, EOMs intact bilaterally and conjunctivae normal CONJUNCTIVA: Yes conjunctivae normal PUPIL: Yes Equal, round and reactive pupils present Neck/C-Spine: COMMON NORMALS: full ROM, no lymphadenopathy, supple, no JVD and Thyroid normal THYROID: Thyroid normal Lymph: LYMPHATIC: no lymphadenopathy noted and no lymphedema noted Chest: COMMONS NORMALS: normal inspection of the chest and normal palpation of entire chest wall Resp: COMMON NORMALS: normal respiratory effort, No retractions, No use of accessory muscles and clear to auscultation bilaterally AUSCULTATION: clear to auscultation bilaterally Cardio: COMMON NORMALS: no JVD, regular rate, regular rhythm, S1 normal heart sound present, S2 normal heart sound present and No gallops present (Cardio) RATE: regular rate RHYTHM: regular rhythm HEART SOUNDS: S1 normal heart sound present and S2 normal heart sound present GI: COMMON NORMALS: Normal to inspection, nondistended, normoactive bowel sounds present, Soft to palpation, non-tender, No hepatosplenomegaly present and no masses PALPATION: Yes Soft to palpation and Yes No hepatosplenomegaly present Neuro: COMMON NORMALS: patient oriented x3, CN's II-XII intact bilaterally, moves all extremities, no focal motor deficits and no sensory deficits noted SENSORIUM/ORIENTATION: Yes alert Psych: COMMON NORMALS: mental status grossly normal, Normal thought process present, cooperative, normal affect and speech normal SPEECH: Yes normal speech MOOD & AFFECT: Yes anxious THOUGHT PROCESS: Normal thought process present Course Vital Signs: Vital signs: Vital Signs Temperature 97.9 F 08/22/22 15:56 Pulse Rate 73 08/22/22 17:15 Respiratory Rate 16 08/22/22 15:56 Blood Pressure 133/90 08/22/22 17:15 Pulse Oximetry 97 08/22/22 17:15 Oxygen Delivery Me thod 08/22/22 17:15 MDM - Headache Medical Decision Making Patient presents to the ER with complaints of headache. Patient also has a sore in her scalp that she continues to pick at. Patient describes these headaches as ice pick headaches. They come on very fast they are sharp and stabbing and they are gone literally in seconds. Patient has had these multiple times in the past. Upon history and physical exam of the patient as well as a head CT which was normal per the radiologist, feel patient can safely be discharged home follow-up with primary care physician in 1 week. This was discussed with the patient as well as her negative head CT and she is in agreements with discharge and follow-up with primary care. Lab Data Radiology Impressions Head CT 08/22/22 17:10 IMPRESSION: No acute intracranial abnormality. Discharge Plan Discharge Patient Disposition: Home Clinical Impression: Headache Condition: Stable Prescriptions: No Action escitalopram oxalate 20 mg tablet 20 mg PO DAILY trazodone 50 mg tablet 100 mg PO .HS PRN (Reason: insomnia) Qty: 60 1RF buspirone 10 mg tablet 10 mg PO BID Qty: 60 1RF alprazolam 0.5 mg tablet 1 mg PO TID PRN (Reason: Anxiety) Rx Instructions: PT STATES SHE NEEDS A REFILL ON THIS. SHE HAS BEEN OUT FOR A WHILE AND FEELS SHE NEEDS THEM. Discharge Orders: Discharge ED (Routine); Ordered 08/22/22 Ordered By: Kenji Mendieta Referrals: ANUSHA DICK MD [Primary Care Provider] - 1 week Discharge Activity: Resume usual activity Patient Instructions: Acute Headache (ED) Coding Level of Care Code ED Engineer System Administrator for Oskar Jean
[2022-08-22 17:15] VITALS: BP 133/90; PULSE 73; O2SAT 97
[2022-08-22 18:02] VITALS: BP 117/76; PULSE 75; RESP 18; O2SAT 98
== END 2022-08-22 18:03 | disposition home or self-care (01) ==
PROVIDERS: Emergency Provider Emergency Medicine; PCP Family Medicine
DX: R51.9 Headache, unspecified (principal); Z87.891 Personal history of nicotine dependence
CPT/HCPCS: 70450; 99284

== ENCOUNTER 2022-09-01 19:42 | Emergency (ER) | payer MEDICAID, SELFPAY ==
[2022-09-01 20:01] VITALS: BP 121/83; PULSE 86; RESP 16; TEMP 36.8; O2SAT 98; BMI 39.4
[2022-09-01 23:27] VITALS: BP 127/88; PULSE 73; RESP 18; O2SAT 98
[2022-09-02 01:13] VITALS: BP 117/89; PULSE 75; RESP 18; O2SAT 97
--- NOTE | 2022-09-02 03:13 | ED_ITS ---
HPI - Neck Pain/Injury General: Chief Complaint: Neck Pain/Injury Stated Complaint: pt stated she is having lymph node pain Time Seen by Provider: 09/01/22 23:17 Source: patient History of Present Illness: 32-year-old female who was seen recently for right-sided occipital neck pain. She presents with mid anterior left-sided neck pain today, and notes that she has a lump in the area. She has had this lymph node on and off for years. She has had an ultrasound prior showing a borderline enlarged lymph node to that area. It is quite tender, and causing her significant pain, especially with trying to sleep. MD complaint: neck pain Onset (ago): day(s) Place: other Severity: moderate Quality: dull and stabbing Duration: constant Relieving factors: none Exacerbating factors: movement of neck Context: other Associated symptoms: Reports nausea and swollen glands; Denies dysphagia, fevers/chills, headache(s), tingling or weakness Treatments prior to arrival: none Review of Systems Const: Denies: fever(s), chills or night sweats Eyes: Denies: change in vision ENMT: Reports: dental pain; Denies: enlarged tonsils, odynophagia, ear or mastoid pain, ear discharge, nasal congestion, epistaxis or sinus pain Card: Denies: chest pain Resp: Denies: dyspnea GI: Reports: nausea; Denies: dysphagia Musc: Reports: neck pain Neuro: Denies: headache(s) [facility] ED PFSH: Medical History Blood type A+ COVID-19 Depression with anxiety Folliculitis Psychiatric care Surgical History No pertinent past surgical history Family History Grandfather Hypertension paternal Diabetes paternal Grandmother Stroke paternal Other Heart disease Denies family history of Colon cancer Ovarian cancer Hypercholesteremia Breast cancer Uterine cancer Thyroid disease Social History Smoking and tobacco status: former smoker Physical Exam Const: COMMON NORMALS: no acute distress GENERAL APPEARANCE: cooperative and anxious; not ill appearing and not frail appearing HENMT: COMMON NORMALS: normocephalic, atraumatic and Normal external nose present HEAD & SCALP: normocephalic and atraumatic FACE & SINUS: normal facial exam and face symmetric NOSE: Normal external nose present Eye: COMMON NORMALS: Equal, round and reactive pupils present and EOMs intact bilaterally PUPIL: Yes Equal, round and reactive pupils present Neck/C-Spine: GENERAL: Yes trachea midline, Yes lymphadenopathy Lymphadenopathy location: anterior cervical soft, mobile and tender 1 cm, Yes tender and No submandibular swelling CERVICAL SPINE: Yes cervical ROM normal and Yes pain with cervical ROM Chest: CHEST: Yes Symmetrical chest wall rise Resp: COMMON NORMALS: normal respiratory effort, No retractions, No use of accessory muscles and clear to auscultation bilaterally AUSCULTATION: clear to auscultation bilaterally Cardio: COMMON NORMALS: regular rate and regular rhythm RATE: regular rate RHYTHM: regular rhythm GI: COMMON NORMALS: Normal to inspection, nondistended, normoactive bowel sounds present Extremity: COMMON NORMALS: no pedal edema Neuro: JIMI COMA SCALE: document GCS findings Logan coma scale eye opening: Spontaneous Logan coma scale verbal response: Orientated Jimi coma scale motor response: Obey commands Jimi coma scale total score: 15 SENSORY EXAM: Yes extremities (intact) Psych: COMMON NORMALS: speech normal SPEECH: Yes normal speech Skin: COMMON NORMALS: no rashes or lesions noted GENERAL SKIN EXAM: no rashes or lesions noted Course Vital Signs: Vital signs: Vital Signs Temperature 98.2 F 09/01/22 20:01 Pulse Rate 75 09/02/22 01:13 Respiratory Rate 18 09/02/22 01:13 Blood Pressure 117/89 09/02/22 01:13 Pulse Oximetry 97 09/02/22 01:13 Oxygen Delivery Me thod 09/01/22 23:27 MDM - Neck Pain/Injury Medical Decision Making Bedside ultrasound is completed. It shows a 1 cm lymph node in the area of tenderness. There are some sternocleidomastoid swelling surrounding this. Clinically she appears well. There is no fever. No definite cause of her reactive lymphadenitis such as a scalp lesion, scratch, etc. No other signs of infection. She will be placed on a short course of steroids, and asked to follow-up with her PCP as an outpatient. Discharge Plan Discharge Patient Disposition: Home Clinical Impression: Strain of sternocleidomastoid muscle, Lymphadenitis Condition: Stable Prescriptions: New Medrol (Buddy) 4 mg tablets,dose pack See Rx Instructions .ROUTE .COMPLEX Qty: 21 0RF Rx Instructions: orally per package directions No Action escitalopram oxalate 20 mg tablet 20 mg PO DAILY trazodone 50 mg tablet 100 mg PO .HS PRN (Reason: insomnia) Qty: 60 1RF buspirone 10 mg tablet 10 mg PO BID Qty: 60 1RF alprazolam 0.5 mg tablet 1 mg PO TID PRN (Reason: Anxiety) Rx Instructions: PT STATES SHE NEEDS A REFILL ON THIS. SHE HAS BEEN OUT FOR A WHILE AND FEELS SHE NEEDS THEM. Discharge Orders: Discharge ED (Routine); Ordered 09/02/22 Ordered By: Jose Castro Referrals: ANUSHA DICK MD [Primary Care Provider] - Patient Instructions: Lymphadenitis, Neck Pain (ED) Activity Restrictions/Additional Instructions: Return for fever greater than 100, worsening pain despite treatment, shortness of breath, other concerning symptoms. Follow-up with your doctor next week. They may wish to run more outpatient tests or perform more treatment. Coding Level of Care Code ED Sole Painter for Oskar Jean
== END 2022-09-02 01:15 | disposition home or self-care (01) ==
PROVIDERS: Emergency Provider Emergency Medicine; PCP Family Medicine
DX: S16.1XXA Strain of muscle, fascia and tendon at neck level, initial encounter (principal); I88.9 Nonspecific lymphadenitis, unspecified; X58.XXXA Exposure to other specified factors, initial encounter
CPT/HCPCS: 99283

== ENCOUNTER 2022-11-17 08:11 | Outpatient (CLI) | payer MEDICAID, SELFPAY ==
--- NOTE | 2022-11-17 08:23 | US_ITS ---
WS: [id number] Complete ABDOMINAL ULTRASOUND HISTORY: CHRONIC ABDOMINAL PAIN COMPARISON: Gallbladder ultrasound 02/22/2017 Liver: 21.3 cm in length. Liver is moderately enlarged. Size of the liver has increased since the kostas or examination. Low-attenuation throughout from hepatic steatosis has also progressed. Portal triads are becoming less apparent. No bile duct dilatation. Portal Vein: Normal hepatopetal flow with monophasic waveform. Gallbladder: Normally distended gallbladder with no stones or wall thickening. CBD: 0.6 cm Pancreas: Normal size and echogenicity. Right kidney: 11.9 cm x 6.6 x 4.2 cm. Cortex:1.4 cm. Normal size and echogenicity. No hydronephrosis or mass. Left kidney: 12.4 cm x 5.5 cm x 5.6 cm. Cortex: 1.5 cm. Normal size and echogenicity. No hydronephrosis or mass. Spleen: Enlarged spleen measures 17.4 cm in length. No splenic mass. Aorta and IVC: Unremarkable abdominal aorta and IVC. US/US abdomen complete* [id number] Impression: 1. Marked splenomegaly. Spleen measures 17.4 cm in length. Consider infectious and neoplastic causes for the splenomegaly. 2. No ascites. 3. Moderate hepatic enlargement and hepatic steatosis. Progression of hepatic steatosis and hepatomegaly since the prior study. 4. Negative gallbladder.
== END 2022-11-17 08:12 | disposition home or self-care (01) ==
LOC: RAD 08:12
PROVIDERS: PCP Family Medicine; Visit Provider Family Medicine
DX: R16.2 Hepatomegaly with splenomegaly, not elsewhere classified (principal); R10.9 Unspecified abdominal pain; K76.0 Fatty (change of) liver, not elsewhere classified
CPT/HCPCS: 76700

== ENCOUNTER 2022-11-18 09:38 | Emergency (ER) | payer MEDICAID, SELFPAY ==
[2022-11-18 09:48] VITALS: BP 140/84; PULSE 79; RESP 15; TEMP 36.6; O2SAT 98; BMI 37.0
--- NOTE | 2022-11-18 09:49 | XRR_ITS ---
PROCEDURE INFORMATION: Exam: XR Left Ribs with PA Chest Exam date and time: 11/18/2022 10:03 AM Age: 32 years old Clinical indication: Other: Lt rib pain TECHNIQUE: Imaging protocol: Radiologic exam of the left ribs with PA chest. Views: 3 views COMPARISON: CR XR chest 1V portable [id number] 02/08/2022 6:42 AM FINDINGS: Lungs: Unremarkable. No consolidation. Pleural spaces: Unremarkable. No pleural effusion. No pneumothorax. Heart/Mediastinum: Unremarkable. No cardiomegaly. Bones/joints: Unremarkable. XR/XR ribs LT mn 3V w [id number] [id number] IMPRESSION: No acute findings.
--- NOTE | 2022-11-18 09:55 | ED_ITS ---
HPI - Back Pain/Injury General: Chief Complaint: Back Pain/Injury Stated Complaint: pain left side rib area Time Seen by Provider: 11/18/22 09:48 Source: patient Mode of arrival: ambulatory History of Present Illness: 82-year-old female presents emergency room complaining of left anterior chest wall pain is tender with palpation extends to the axillary line laterally. She does not recall falling or any trauma she did recently have a upper abdominal ultrasound she been having chronic abdominal pain that showed splenomegaly which she had read on her portal page and she was extremely worried about this. She denies any fever sweats chills nausea vomiting diarrhea no dysuria urgency or frequency. No shortness of breath or cough. No recent trauma Onset (ago): day(s) Timing: intermittent Severity: moderate Similar Symptoms Previously: Yes Quality: sharp Radiation: none Exacerbating factors: none Associated symptoms: Reports abdominal pain; Deny arthralgias, chills, difficulty walking, dysuria, fatigue, fever(s), hematuria, myalgias, nausea, numbness, syncope, tingling/numbness/burning, ur inary frequency, urinary urgency, vomiting or weakness Work related injury: No Review of Systems Const: Denies: fever(s), chills or fatigue Card: Denies: syncope Resp: Denies: dyspnea, productive cough or non-productive cough GI: Reports: abdominal pain; Denies: nausea or vomiting : Denies: dysuria, urinary frequency, urinary urgency or hematuria Skin/Breast: Denies: rash or pruritus Neuro: Denies: headache(s) or difficulty walking [facility] ED PFSH: Medical History Blood type A+ COVID-19 Depression with anxiety Folliculitis Psychiatric care Surgical History No pertinent past surgical history Family History Grandfather Hypertension paternal Diabetes paternal Grandmother Stroke paternal Other Heart disease Denies family history of Colon cancer Ovarian cancer Hypercholesteremia Breast cancer Uterine cancer Thyroid disease Social History Smoking and tobacco status: former smoker Substance/Drug Use: never Physical Exam Const: COMMON NORMALS: no acute distress GENERAL APPEARANCE: cooperative and comfortable ORIENTATION/CONSCIOUSNESS: Yes awake, Yes oriented to person, Yes oriented to place and Yes oriented to time HENMT: COMMON NORMALS: normocephalic, atraumatic and hearing grossly normal bilaterally HEAD & SCALP: normocephalic and atraumatic Chest: OTHER: Pain reproducible along the lateral chest wall at the mid axillary line, somewhat less reproducible under the left breast. No skin ulcerations or vesicular rash Resp: COMMON NORMALS: normal respiratory effort, No retractions, No use of accessory muscles and clear to auscultation bilaterally AUSCULTATION: clear to auscultation bilaterally Cardio: COMMON NORMALS: regular rate, regular rhythm and No murmurs present (Cardio) RATE: regular rate RHYTHM: regular rhythm GI: COMMON NORMALS: Soft to palpation and No hepatosplenomegaly present AUSCULTATION: Yes normoactive bowel sounds PALPATION: Yes Soft to palpation, No Tenderness to palpation present (GI), No Guarding due to palpation present (GI) and Yes No hepatosplenomegaly present Extremity: COMMON NORMALS: normal to inspection, capillary refill normal, no clubbing, cyanosis or edema, no calf tenderness and no pedal edema Neuro: SENSORIUM/ORIENTATION: Yes oriented to person, Yes oriented to place and Yes oriented to time Skin: COMMON NORMALS: no rashes or lesions noted GENERAL SKIN EXAM: no rashes or lesions noted Course Vital Signs: Vital signs: Vital Signs Temperature 98 F 11/18/22 12:44 Pulse Rate 79 11/18/22 12:44 Respiratory Rate 15 11/18/22 12:44 Blood Pressure 138/80 11/18/22 12:44 Pulse Oximetry 98 11/18/22 12:44 Oxygen Delivery Me thod Room Air 11/18/22 09:48 MDM - Back Pain/Injury Medical Decision Making X-rays negative laboratories test unremarkable she does have splenomegaly in the recent ultrasound her platelets are normal. Urine unremarkable. Discharge home use anti-inflammatories as needed follow-up with her primary care doc if worsening change symptoms return no emergent condition present at this time Medical Records I reviewed the patient's medical records. Labs I reviewed the patient's lab results. 11/18/22 11:55 Radiology Impressions Ribs X-Ray 11/18/22 09:49 IMPRESSION: No acute findings. Laboratory Results WBC 4.9 10^3/uL (4.0-10.0) 11/18/22 11:55 Corrected WBC Cancelled 11/18/22 10:40 RBC 4.52 10^6/uL (4.1-5.3) 11/18/22 11:55 Hgb 12.4 g/dL (11.5-15.3) 11/18/22 11:55 Hct 38.8 % (37.0-47.0) 11/18/22 11:55 MCV 85.8 fl (81-99) 11/18/22 11:55 MCH 27.4 pg (28.0-34.0) L 11/18/22 11:55 MCHC 32.0 g/dL (30.0-36.0) 11/18/22 11:55 RDW 12.6 % (12.1-15.1) 11/18/22 11:55 Plt Count 147 10^3/cmm (130-400) 11/18/22 11:55 MPV 9.8 fL (7.4-10.4) 11/18/22 11:55 Gran % Cancelled 11/18/22 10:40 Neut % (Auto) 53.3 % 11/18/22 11:55 Lymph % (Auto) 35.9 % 11/18/22 11:55 [place] % (Auto) 6.3 % 11/18/22 11:55 Eos % (Auto) 3.9 % 11/18/22 11:55 Baso % (Auto) 0.4 % 11/18/22 11:55 Neut # (Auto) 2.63 10^3/uL (1.8-7.7) 11/18/22 11:55 Lymph # (Auto) 1.8 10^3/uL (0.8-4.8) 11/18/22 11:55 [place] # (Auto) 0.3 10^3/uL (0.2-0.9) 11/18/22 11:55 Eos # (Auto) 0.2 10^3/uL (0.0-0.8) 11/18/22 11:55 Baso # (Auto) 0.0 10^3/uL (0.0-0.1) 11/18/22 11:55 Absolute Gran (auto) Cancelled 11/18/22 10:40 Nucleated RBC % (auto) 0 % 11/18/22 11:55 Nucleated RBCs # 0.0 /100WBC 11/18/22 11:55 Discharge Plan Discharge Patient Disposition: Home Clinical Impression: Acute chest wall pain, Splenomegaly Condition: Stable Prescriptions: New diclofenac sodium 75 mg tablet,delayed release (DR/EC) 75 mg PO Q12H PRN (Reason: pain) Qty: 20 0RF Discontinued ibuprofen 200 mg Capsule 800 mg PO Q6H PRN (Reason: Pain) No Action escitalopram oxalate 20 mg tablet 20 mg PO DAILY alprazolam 0.5 mg tablet 1 mg PO TID PRN (Reason: Anxiety) metformin 500 mg tablet 500 mg PO BID ergocalciferol (vitamin D2) 1,250 mcg (50,000 unit) capsule 1,250 mcg PO Q7D Rx Instructions: ON SUNDAY Discharge Orders: Discharge ED (Routine); Ordered 11/18/22 Ordered By: Gabe Reveles Patient Instructions: Opioid Safety, Pain Management Activity Restrictions/Additional Instructions: You are seen to Your hemoglobin and white count and platelet counts were normal. Use diclofenac as needed for the rib pain. X-rays of the ribs not show any acute fractures or anything acute on the chest x-ray. Follow-up with your primary care doctor to further evaluate the splenomegaly. Coding Level of Care Code ED Supervisor Film Processing for Oskar Jean
[2022-11-18] MEDS: ketorolac 30 mg/mL INJ IVP (10:33)
[2022-11-18 12:02] LABS: Basophils % 0.4 %; Eosinophils # 0.2 10^3/uL (0.0-0.8); Eosinophils % 3.9 %; Hematocrit 38.8 % (37.0-47.0); Hemoglobin 12.4 g/dL (11.5-15.3); Lymphocytes # 1.8 10^3/uL (0.8-4.8); Lymphocytes % 35.9 %; Mean Corpuscular Hemoglobin 27.4 pg (28.0-34.0); Mean Corpuscular Volume 85.8 fl (81-99); Mean Platelet Volume 9.8 fL (7.4-10.4); Monocytes # 0.3 10^3/uL (0.2-0.9); Monocytes % 6.3 %; Neutrophils # 2.63 10^3/uL (1.8-7.7); Neutrophils % 53.3 %; Nucleated Red Blood Cells % 0 %; Platelet Count 147 10^3/cmm (130-400); Red Blood Count 4.52 10^6/uL (4.1-5.3); Red Cell Distribution Width 12.6 % (12.1-15.1); White Blood Count 4.9 10^3/uL (4.0-10.0)
[2022-11-18 12:44] VITALS: BP 138/80; PULSE 79; RESP 15; TEMP 36.6; O2SAT 98
--- NOTE | 2022-11-22 13:07 | DCPLANNER ---
Addendum entered by Maria Teresa Ontiveros 11/22/22 13:39: Patient called trimming caser back, stating that she has a primary care physician at [facility] Original Note: child welfare manager called patient due to no primary care physician - no answer at this time - a voicemail was left for patient to return trimming caser phone call.
== END 2022-11-18 12:45 | disposition home or self-care (01) ==
PROVIDERS: Emergency Provider Family Medicine
DX: R07.89 Other chest pain (principal); R16.1 Splenomegaly, not elsewhere classified; Z79.84 Long term (current) use of oral hypoglycemic drugs; Z87.891 Personal history of nicotine dependence
CPT/HCPCS: 36415; 71101; 85025; 96374; 99284; J1885

== ENCOUNTER 2022-11-24 14:57 | Emergency (ER) | payer MEDICAID, SELFPAY ==
[2022-11-24 15:05] VITALS: BP 114/80; PULSE 76; RESP 15; TEMP 36.8; O2SAT 97
[2022-11-24 16:06] LABS: Basophils % 0.3 %; Eosinophils # 0.2 10^3/uL (0.0-0.8); Eosinophils % 2.9 %; Hematocrit 37.4 % (37.0-47.0); Hemoglobin 12.4 g/dL (11.5-15.3); Lymphocytes % 32.7 %; Mean Corpuscular HGB Conc 33.2 g/dL (30.0-36.0); Mean Corpuscular Hemoglobin 28.1 pg (28.0-34.0); Mean Corpuscular Volume 84.6 fl (81-99); Mean Platelet Volume 9.9 fL (7.4-10.4); Monocytes # 0.3 10^3/uL (0.2-0.9); Monocytes % 5.6 %; Neutrophils # 3.57 10^3/uL (1.8-7.7); Neutrophils % 58.3 %; Nucleated Red Blood Cells % 0 %; Platelet Count 170 10^3/cmm (130-400); Red Blood Count 4.42 10^6/uL (4.1-5.3); Red Cell Distribution Width 12.4 % (12.1-15.1); White Blood Count 6.1 10^3/uL (4.0-10.0)
[2022-11-24 16:23] LABS: Anion Gap 15.8 (5-19); Blood Urea Nitrogen 9 mg/dL (6-20); Calcium 9.9 mg/dL (8.5-10.5); Carbon Dioxide 25 mmol/L (22-29); Chloride 99 mmol/L (98-107); Creatinine Clr Calc Pharmacy 151.4802; Glomerular Filtration Rate 115.9 mL/min (90-130); Glucose 92 mg/dL (65-115); Lipase 25 U/L (13-60); Osmolality Calculated 280 mOsm/kg (285-295); Potassium 3.8 mmol/L (3.5-5.1); Sodium 136 mmol/L (136-145)
--- NOTE | 2022-11-24 16:29 | W.ED.ABDPA2 ---
HPI - Abdominal Pain General: Chief Complaint: Abdominal Pain Stated Complaint: middle abd pain Time Seen by Provider: 11/24/22 16:29 [facility] ED PFSH: Medical History Blood type A+ COVID-19 Depression with anxiety Folliculitis Psychiatric care Surgical History No pertinent past surgical history Family History Grandfather Hypertension paternal Diabetes paternal Grandmother Stroke paternal Other Heart disease Denies family history of Colon cancer Ovarian cancer Hypercholesteremia Breast cancer Uterine cancer Thyroid disease Social History Smoking and tobacco status: former smoker Substance/Drug Use: never Course Vital Signs: Vital signs: Vital Signs Temperature 98.2 F 11/24/22 15:05 Pulse Rate 76 11/24/22 15:05 Respiratory Rate 15 11/24/22 15:05 Blood Pressure 114/80 11/24/22 15:05 Pulse Oximetry 97 11/24/22 15:05 Oxygen Delivery Me thod Room Air 11/24/22 15:05 MDM - Abdominal Pain Lab Data 11/24/22 16:00 11/24/22 16:00 Labs/Radiology: Laboratory Results WBC 6.1 10^3/uL (4.0-10.0) 11/24/22 16:00 RBC 4.42 10^6/uL (4.1-5.3) 11/24/22 16:00 Hgb 12.4 g/dL (11.5-15.3) 11/24/22 16:00 Hct 37.4 % (37.0-47.0) 11/24/22 16:00 MCV 84.6 fl (81-99) 11/24/22 16:00 MCH 28.1 pg (28.0-34.0) 11/24/22 16:00 MCHC 33.2 g/dL (30.0-36.0) 11/24/22 16:00 RDW 12.4 % (12.1-15.1) 11/24/22 16:00 Plt Count 170 10^3/cmm (130-400) 11/24/22 16:00 MPV 9.9 fL (7.4-10.4) 11/24/22 16:00 Neut % (Auto) 58.3 % 11/24/22 16:00 Lymph % (Auto) 32.7 % 11/24/22 16:00 [place] % (Auto) 5.6 % 11/24/22 16:00 Eos % (Auto) 2.9 % 11/24/22 16:00 Baso % (Auto) 0.3 % 11/24/22 16:00 Neut # (Auto) 3.57 10^3/uL (1.8-7.7) 11/24/22 16:00 Lymph # (Auto) 2.0 10^3/uL (0.8-4.8) 11/24/22 16:00 [place] # (Auto) 0.3 10^3/uL (0.2-0.9) 11/24/22 16:00 Eos # (Auto) 0.2 10^3/uL (0.0-0.8) 11/24/22 16:00 Baso # (Auto) 0.0 10^3/uL (0.0-0.1) 11/24/22 16:00 Nucleated RBC % (auto) 0 % 11/24/22 16:00 Nucleated RBCs # 0.0 /100WBC 11/24/22 16:00 Sodium 136 mmol/L (136-145) 11/24/22 16:00 Potassium 3.8 mmol/L (3.5-5.1) 11/24/22 16:00 Chloride 99 mmol/L (98-107) 11/24/22 16:00 Carbon Dioxide 25 mmol/L (22-29) 11/24/22 16:00 Anion Gap 15.8 (5-19) 11/24/22 16:00 BUN 9 mg/dL (6-20) 11/24/22 16:00 Creatinine 0.6 mg/dL (0.5-0.9) 11/24/22 16:00 GFR Calculation 115.9 mL/min (90-130) 11/24/22 16:00 Glucose 92 mg/dL (65-115) 11/24/22 16:00 Calculated Osmolality 280 mOsm/kg (285-295) L 11/24/22 16:00 Calcium 9.9 mg/dL (8.5-10.5) 11/24/22 16:00 Lipase 25 U/L (13-60) 11/24/22 16:00 Discharge Plan Discharge Condition: Stable Prescriptions: No Action escitalopram oxalate 20 mg tablet 20 mg PO DAILY alprazolam 0.5 mg tablet 1 mg PO TID PRN (Reason: Anxiety) metformin 500 mg tablet 500 mg PO BID ergocalciferol (vitamin D2) 1,250 mcg (50,000 unit) capsule 1,250 mcg PO Q7D Rx Instructions: ON SUNDAY diclofenac sodium 75 mg tablet,delayed release (DR/EC) 75 mg PO Q12H PRN (Reason: pain) Qty: 20 0RF Referrals: Carolyn Gallego [Primary Care Provider] - Coding Level of Care Code ED Organ Pipe Maker Metal for Oskar Jean
--- NOTE | 2022-11-24 16:45 | ED_ITS ---
HPI - Abdominal Pain General: Chief Complaint: Abdominal Pain Stated Complaint: middle abd pain Time Seen by Provider: 11/24/22 16:29 History of Present Illness: 32-year-old lady with history of abdominal pain presented to the emergency department for reevaluation of abdominal pain. She notes right upper quadrant pain. Moderate in intensity. Persistent intercourse. She is quite anxious regarding this. She has not seen specialist for further evaluation. No other specific changes in health, exacerbating, or alleviating factors identified. Onset (ago): day(s) Location: RUQ Severity: moderate Exacerbating factors: nothing Relieving factors: nothing Review of Systems General: Reports: 10 or more systems reviewed and unremarkable except in HPI and below PFSH ED PFSH: Medical History Blood type A+ COVID-19 Depression with anxiety Folliculitis Psychiatric care Surgical History No pertinent past surgical history Family History Grandfather Hypertension paternal Diabetes paternal Grandmother Stroke paternal Other Heart disease Denies family history of Colon cancer Ovarian cancer Hypercholesteremia Breast cancer Uterine cancer Thyroid disease Social History Smoking and tobacco status: former smoker Substance/Drug Use: never Physical Exam Const: COMMON NORMALS: alert GENERAL APPEARANCE: cooperative and well developed HENMT: COMMON NORMALS: normocephalic and atraumatic HEAD & SCALP: normocephalic and atraumatic Eye: COMMON NORMALS: conjunctivae normal CONJUNCTIVA: Yes conjunctivae normal SCLERA: sclerae normal Neck/C-Spine: COMMON NORMALS: supple GENERAL: Yes trachea midline Resp: COMMON NORMALS: clear to auscultation bilaterally EFFORT & INSPECTION: Yes able to speak in complete sentences AUSCULTATION: clear to auscultation bilaterally Cardio: COMMON NORMALS: regular rate and regular rhythm RATE: regular rate RHYTHM: regular rhythm GI: COMMON NORMALS: Soft to palpation PALPATION: Yes Soft to palpation and No Tenderness to palpation present (GI) Extremity: GENERAL: Yes normal exam except as noted and No edema Neuro: COMMON NORMALS: moves all extremities SENSORIUM/ORIENTATION: Yes alert and No Orientation impaired Psych: COMMON NORMALS: mental status grossly normal and Normal thought process present THOUGHT PROCESS: Normal thought process present Course Vital Signs: Vital signs: Vital Signs Temperature 98.2 F 11/24/22 15:05 Pulse Rate 82 11/24/22 17:33 Respiratory Rate 16 11/24/22 17:33 Blood Pressure 135/96 11/24/22 17:33 Pulse Oximetry 99 11/24/22 17:33 Oxygen Delivery Me thod Room Air 11/24/22 17:33 MDM - Abdominal Pain Medical Decision Making 32-year-old lady presented to the emergency department for evaluation of abdominal pain. Exam as above. Patient is quite anxious and nontoxic. Abdominal exam is benign with no evidence of acute surgical abdomen or significant tenderness. Patient is vitally satisfactory. CBC and BMP are unremarkable. Lipase is normal. hCG is negative. Urinalysis with mild hematuria with without evidence of urinary tract infection. I reviewed prior imaging including imaging on 11/17. She does have enlarged liver and splenomegaly. As far as differentials of hepatosplenomegaly requiring further ED evaluation I do not believe that the patient requires further imaging from the emergency department. I had extensive discussion with the patient regarding previous evaluation and current status. I do not believe that she has liver cancer which is one of her major concerns. She may benefit from further imaging in the outpatient setting however does not require this in the ER. I will place case management referral for gastroenterology follow-up. I will also message for establish with primary care. I explained the importance of good relationship with primary care and appropriate boundaries. The results of ED evaluation were discussed with the patient including prescriptions and/or symptomatic cares (if applicable) including appropriate and responsible use, followup plan, and return precautions. The patient verbalized understanding and felt safe for discharge. Medical Records I reviewed the patient's medical records. Lab Data I reviewed the patient's lab results. 11/24/22 16:00 11/24/22 16:00 Labs/Radiology: Laboratory Results WBC 6.1 10^3/uL (4.0-10.0) 11/24/22 16:00 RBC 4.42 10^6/uL (4.1-5.3) 11/24/22 16:00 Hgb 12.4 g/dL (11.5-15.3) 11/24/22 16:00 Hct 37.4 % (37.0-47.0) 11/24/22 16:00 MCV 84.6 fl (81-99) 11/24/22 16:00 MCH 28.1 pg (28.0-34.0) 11/24/22 16:00 MCHC 33.2 g/dL (30.0-36.0) 11/24/22 16:00 RDW 12.4 % (12.1-15.1) 11/24/22 16:00 Plt Count 170 10^3/cmm (130-400) 11/24/22 16:00 MPV 9.9 fL (7.4-10.4) 11/24/22 16:00 Neut % (Auto) 58.3 % 11/24/22 16:00 Lymph % (Auto) 32.7 % 11/24/22 16:00 Door % (Auto) 5.6 % 11/24/22 16:00 Eos % (Auto) 2.9 % 11/24/22 16:00 Baso % (Auto) 0.3 % 11/24/22 16:00 Neut # (Auto) 3.57 10^3/uL (1.8-7.7) 11/24/22 16:00 Lymph # (Auto) 2.0 10^3/uL (0.8-4.8) 11/24/22 16:00 Door # (Auto) 0.3 10^3/uL (0.2-0.9) 11/24/22 16:00 Eos # (Auto) 0.2 10^3/uL (0.0-0.8) 11/24/22 16:00 Baso # (Auto) 0.0 10^3/uL (0.0-0.1) 11/24/22 16:00 Nucleated RBC % (auto) 0 % 11/24/22 16:00 Nucleated RBCs # 0.0 /100WBC 11/24/22 16:00 Sodium 136 mmol/L (136-145) 11/24/22 16:00 Potassium 3.8 mmol/L (3.5-5.1) 11/24/22 16:00 Chloride 99 mmol/L (98-107) 11/24/22 16:00 Carbon Dioxide 25 mmol/L (22-29) 11/24/22 16:00 Anion Gap 15.8 (5-19) 11/24/22 16:00 BUN 9 mg/dL (6-20) 11/24/22 16:00 Creatinine 0.6 mg/dL (0.5-0.9) 11/24/22 16:00 GFR Calculation 115.9 mL/min (90-130) 11/24/22 16:00 Glucose 92 mg/dL (65-115) 11/24/22 16:00 Calculated Osmolality 280 mOsm/kg (285-295) L 11/24/22 16:00 Calcium 9.9 mg/dL (8.5-10.5) 11/24/22 16:00 Lipase 25 U/L (13-60) 11/24/22 16:00 HCG, Qual Negative (Negative) 11/24/22 16:45 Urine Color Natividad (Yellow) 11/24/22 16:45 Urine Appearance Hazy (CLEAR) A 11/24/22 16:45 Urine pH 5 (5-7) 11/24/22 16:45 Ur Specific [place] 1.025 (1.005-1.030) 11/24/22 16:45 Urine Protein Neg (Negative) 11/24/22 16:45 Urine Glucose (UA) Norm (Normal) 11/24/22 16:45 Urine Ketones 1+ (Negative) H 11/24/22 16:45 Urine Blood 3+ (Negative) H 11/24/22 16:45 Urine Nitrate Negative (Negative) 11/24/22 16:45 Urine Bilirubin Neg (Negative) 11/24/22 16:45 Urine Urobilinogen Norm mg/dL (Negative) 11/24/22 16:45 Ur Leukocyte Esterase Negative (Negative) 11/24/22 16:45 Urine RBC 10-15 /hpf (0-2) H 11/24/22 16:45 Urine WBC 0-4 /hpf (0-5) H 11/24/22 16:45 Ur Squamous Epith Cells 0-4 /hpf (0-5) H 11/24/22 16:45 Amorphous Sediment Not Reportable 11/24/22 16:45 Urine Bacteria Not Reportable 11/24/22 16:45 Urine Mucus 4+ /hpf 11/24/22 16:45 Discharge Plan Discharge Patient Disposition: Home Clinical Impression: Abdominal pain Condition: Stable Prescriptions: No Action escitalopram oxalate 20 mg tablet 20 mg PO DAILY alprazolam 0.5 mg tablet 1 mg PO TID PRN (Reason: Anxiety) Bactrim DS 800-160 mg tablet 1 tab PO BID 10 Days Qty: 20 0RF Medrol (Buddy) 4 mg tablets,dose pack 4 mg PO DAILY Qty: 21 0RF metformin 500 mg tablet 500 mg PO BID ergocalciferol (vitamin D2) 1,250 mcg (50,000 unit) capsule 1,250 mcg PO Q7D Rx Instructions: ON SUNDAY diclofenac sodium 75 mg tablet,delayed release (DR/EC) 75 mg PO Q12H PRN (Reason: pain) Qty: 20 0RF Discharge Orders: Discharge ED (Routine); Ordered 11/24/22 Ordered By: Oli Cm Referrals: Carolyn Gallego [Primary Care Provider] - Discharge Diet: Usual diet Discharge Activity: Resume usual activity Patient Instructions: Abdominal Pain (ED) Activity Restrictions/Additional Instructions: Thank you for visiting the emergency department. You were seen and evaluated for abdominal pain. Given clinical history and laboratory studies as well as physical exam you did not require further ED evaluation or inpatient management at this time. I will message case management for follow-up with gastroenterology. I will also message for follow-up with a primary care provider. Return to the emergency department as needed for uncontrolled symptoms or an ything else that you feel needs emergency department evaluation. Coding Level of Care Code ED Splitting Machine Operator Helper for Oskar Jean
[2022-11-24 16:53] VITALS: BP 123/74; PULSE 80; RESP 16; O2SAT 98
[2022-11-24 16:57] LABS: HCG Qualitative Urine. Negative (Negative)
[2022-11-24 17:02] LABS: Add Urine Culture? No; Add Urine Microscopic? YES; Bilirubin Urine Neg (Negative); Blood Urine 3+ (Negative); Glucose Urine UA Norm (Normal); Ketones Urine 1+ (Negative); Leukocyte Esterase Urine Negative (Negative); Mucus Urine 4+ /hpf; Nitrate Urine Negative (Negative); Protein Urine Neg (Negative); Specific Gravity, Urine 1.025 (1.005-1.030); Squamous Epithelial Cell Urine 0-4 /hpf (0-5); Urine Appearance Hazy (CLEAR); Urine Color Amber (Yellow); Urobilinogen Urine Norm (Negative); WBC Urine 0-4 /hpf (0-5); pH Urine 5 (5-7)
[2022-11-24 17:33] VITALS: BP 135/96; PULSE 82; RESP 16; O2SAT 99
--- NOTE | 2022-11-26 05:23 | DCPLANNER ---
Addendum entered by Maria Teresa Ontiveros 01/04/23 07:20: Patient had a follow up appointment scheduled with general surgery - patient did not attend appointment Addendum entered by Maria Teresa Ontiveros 12/12/22 11:34: Patient has a follow up appointment scheduled for Monday, December 26, 2022 at 1:[address] Resendiz at general surgery. Original Note: fitness and wellness manager had message to schedule a follow up appointment for patient with general surgery. fitness and wellness manager sent patients information to the front office staff at general surgery. Patients information will be printed and reviewed. Clinic will call patient with appointment information.
--- NOTE | 2022-11-26 05:23 | DCPLANNER ---
environmental conflict manager also had a message to speak with patient about getting a primary care physician. environmental conflict manager spoke with patient on her last visit to the ER on 11.18.22, she stated that she has a primary care physician at [facility].
== END 2022-11-24 17:45 | disposition home or self-care (01) ==
PROVIDERS: Emergency Provider Emergency Medicine
DX: R10.11 Right upper quadrant pain (principal)
CPT/HCPCS: 36415; 80048; 81001; 81025; 83690; 85025; 99283

== ENCOUNTER 2022-11-26 15:16 | Emergency (ER) | payer MEDICAID, SELFPAY ==
[2022-11-26 15:24] VITALS: BMI 36.2
[2022-11-26] MEDS: clindamycin 150 mg Capsule 300 MG PO (16:02)
--- NOTE | 2022-11-26 21:46 | W.ED.EXTPRO ---
HPI - Extremity Problem General: Chief complaint: Extremity Injury, Lower Stated complaint: insect bite on foot Time Seen by Provider: 11/26/22 15:47 History of Present Illness: 32-year-old female presents emergency room with some redness on the dorsal aspect of her left foot within the past few days. Patient notices possible insect bites and woke up this morning with diffuse redness. Patient with some mild tenderness and described pain as throbbing sensation with severity rated 5 out of 10. No fever or chills. Patient is a new diagnosis diabetic and was concerned. No fall or direct trauma. Associated symptoms: Reports rash; Deny fever(s) Review of Systems General: Reports: 10 or more systems reviewed and unremarkable except in HPI and below Const: Denies: fever(s), chills or body aches Skin/Breast: Reports: rash, erythema, skin pain, skin tenderness and sores; Denies: photosensitivity, skin swelling, new lesions or changing lesions PFSH ED PFSH: Medical History Blood type A+ COVID-19 Depression with anxiety Folliculitis Psychiatric care Surgical History No pertinent past surgical history Family History Grandfather Hypertension paternal Diabetes paternal Grandmother Stroke paternal Other Heart disease Denies family history of Colon cancer Ovarian cancer Hypercholesteremia Breast cancer Uterine cancer Thyroid disease Social History Smoking and tobacco status: former smoker Substance/Drug Use: never Physical Exam Const: COMMON NORMALS: no acute distress, average body habitus, patient oriented x3, no limitations, healthy appearing, alert and well nourished Neck/C-Spine: COMMON NORMALS: full ROM, no lymphadenopathy, supple, no meningeal signs, no JVD, Thyroid normal and No carotid bruits THYROID: Thyroid normal Chest: COMMONS NORMALS: normal inspection of the chest, normal palpation of entire chest wall, normal inspection of the breasts and normal palpation of the breasts Breast/axilla inspection: Yes normal inspection of the breasts BREAST/AXILLA PALPATION: Yes normal palpation of the breasts Resp: COMMON NORMALS: normal respiratory effort, No retractions, No use of accessory muscles, clear to auscultation bilaterally and percussion normal AUSCULTATION: clear to auscultation bilaterally PERCUSSION: percussion normal Cardio: COMMON NORMALS: no JVD Extremity: LEFT LOWER EXTREMITY: Yes foot & digits (Diffuse redness on the dorsal aspect of left foot consistent with celluliti) Left foot and digits: Yes palpation Neuro: COMMON NORMALS: patient oriented x3 SENSORIUM/ORIENTATION: Yes alert MENINGEAL SIGNS: Yes no meningeal signs Course Vital Signs: Vital signs: Vital Signs Oxygen Delivery Me thod Room Air 11/26/22 15:24 MDM - Extremity (Nontraumatic) Medical Decision Making Patient was made comfort emergency room. Patient was thoroughly examined and I discussed the diagnosis with patient. Emergency room recommended and close follow-up PCP recommended Discharge Plan Discharge Patient Disposition: Home Clinical Impression: Cellulitis of foot Condition: Stable Prescriptions: New Bactrim DS 800-160 mg tablet 1 tab PO BID 10 Days Qty: 20 0RF Medrol (Buddy) 4 mg tablets,dose pack 4 mg PO DAILY Qty: 21 0RF No Action escitalopram oxalate 20 mg tablet 20 mg PO DAILY alprazolam 0.5 mg tablet 1 mg PO TID PRN (Reason: Anxiety) metformin 500 mg tablet 500 mg PO BID ergocalciferol (vitamin D2) 1,250 mcg (50,000 unit) capsule 1,250 mcg PO Q7D Rx Instructions: ON SUNDAY diclofenac sodium 75 mg tablet,delayed release (DR/EC) 75 mg PO Q12H PRN (Reason: pain) Qty: 20 0RF Discharge Orders: Discharge ED (Routine); Ordered 11/26/22 Ordered By: Porter Beauchamp Referrals: Carolyn Gallego [Primary Care Provider] - Discharge Diet: Diabetic Discharge Activity: Increase activity as tolerated Patient Instructions: Opioid Safety, Pain Management Coding Level of Care Code ED Kitchen Mechanic for Oskar Jean
== END 2022-11-26 16:06 | disposition home or self-care (01) ==
PROVIDERS: Emergency Provider Family Medicine
DX: L03.116 Cellulitis of left lower limb (principal); Z79.84 Long term (current) use of oral hypoglycemic drugs; Z87.891 Personal history of nicotine dependence
CPT/HCPCS: 99283

== ENCOUNTER 2022-12-09 00:44 | Emergency (ER) | payer MEDICAID, SELFPAY ==
[2022-12-09 00:47] VITALS: BP 112/77; PULSE 86; RESP 16; TEMP 36.6; O2SAT 98; BMI 36.2
--- NOTE | 2022-12-09 02:27 | W.ED.NECK ---
HPI - Neck Pain/Injury General: Chief Complaint: Neck Pain/Injury Stated Complaint: Neck Pain Time Seen by Provider: 12/09/22 00:55 History of Present Illness: Patient is a 32-year-old female comes to the ED with left-sided neck pain. Symptoms started about 4 days ago. She denies any injury or trauma to cause neck pain. She woke up with it 4 days ago and it has not improved. Patient says she has had multiple episodes of neck pain like this in the past and states that this seems to happen about every 3 months. She rates her pain currently a 7 out of 10. Pain worsens when rotating her head to the right or left. Associated symptoms: Denies headache(s) or nausea Review of Systems Const: Denies: fever(s), chills or fatigue Eyes: Denies: change in vision or eye discomfort ENMT: Denies: throat pain, odynophagia, nasal discharge or nasal congestion Card: Denies: chest pain, palpitations, edema, swelling of feet/ankles, dyspnea on exertion or orthopnea Resp: Denies: dyspnea, productive cough or non-productive cough GI: Denies: abdominal pain, nausea, vomiting, diarrhea, constipation or hematochezia : Denies: flank pain, dysuria or hematuria Musc: Reports: neck pain; Denies: back pain or extremity swelling Skin/Breast: Denies: rash or new lesions Neuro: Denies: headache(s), numbness in extremities or weakness in extremities [facility] ED PFSH: Medical History Blood type A+ COVID-19 Depression with anxiety Folliculitis Psychiatric care Surgical History No pertinent past surgical history Family History Grandfather Hypertension paternal Diabetes paternal Grandmother Stroke paternal Other Heart disease Denies family history of Colon cancer Ovarian cancer Hypercholesteremia Breast cancer Uterine cancer Thyroid disease Social History Smoking and tobacco status: former smoker Substance/Drug Use: never Female Reproductive History: Date of last menstrual period: 11/22/22 Physical Exam Const: COMMON NORMALS: no acute distress, patient oriented x3 and alert HENMT: COMMON NORMALS: normocephalic and TM's normal bilaterally HEAD & SCALP: normocephalic TYMPANIC MEMBRANE: TM's normal bilaterally MOUTH: Normal oral and palatal mucosa present THROAT: posterior oropharynx normal and uvula midline Neck/C-Spine: COMMON NORMALS: supple GENERAL: Yes normal visual inspection CERVICAL SPINE: Yes pain with cervical ROM with rotation to the right and with rotation to the left OTHER: Left sternocleidomastoid muscle tenderness. Resp: COMMON NORMALS: normal respiratory effort, No retractions, No use of accessory muscles and clear to auscultation bilaterally AUSCULTATION: clear to auscultation bilaterally Cardio: COMMON NORMALS: regular rate, regular rhythm, S1 normal heart sound present, S2 normal heart sound present, No gallops present (Cardio), No clicks present (Cardio), No murmurs present (Cardio) and Peripheral pulses 2+ throughout RATE: regular rate RHYTHM: regular rhythm HEART SOUNDS: S1 normal heart sound present and S2 normal heart sound present PERIPHERAL PULSES: Peripheral pulses 2+ throughout GI: COMMON NORMALS: Normal to inspection, nondistended, normoactive bowel sounds present, Soft to palpation, non-tender and no masses PALPATION: Yes Soft to palpation : COMMON NORMALS: Yes no CVA tenderness BLADDER/KIDNEY EXAM: Yes no CVA tenderness Back/Pelvis: COMMON NORMALS: no CVA tenderness Extremity: COMMON NORMALS: normal to inspection Neuro: COMMON NORMALS: patient oriented x3 SENSORIUM/ORIENTATION: Yes alert GAIT: Yes Normal gait present Skin: GENERAL SKIN EXAM: dry skin Course Vital Signs: Vital signs: Vital Signs Temperature 97.9 F 12/09/22 02:43 Pulse Rate 72 12/09/22 02:43 Respiratory Rate 16 12/09/22 02:43 Blood Pressure 124/75 12/09/22 02:43 Pulse Oximetry 96 12/09/22 02:43 Oxygen Delivery Me thod Room Air 12/09/22 00:47 MDM - Neck Pain/Injury Medical Decision Making Patient is a 32-year-old female comes to the ED with left-sided neck pain. Symptoms started about 4 days ago. She denies any injury or trauma to cause neck pain. She woke up with it 4 days ago and it has not improved. Patient says she has had multiple episodes of neck pain like this in the past and states that this seems to happen about every 3 months. She rates her pain currently a 7 out of 10. Pain worsens when rotating her head to the right or left. Vital stable. Patient appears nontoxic in no acute distress or pain. She has left sternocleidomastoid muscle tenderness. She also has pain with cervical range of rotation of head to the right and left. Rest of exam is benign. Patient was given a dose of Toradol and muscle relaxer here in the ED. She is diagnosed with neck muscle strain and discharged home with a prescription for ketorolac and muscle relaxers. Follow-up with PCP in the next week for reevaluation. Return to ED precautions given. Patient understood and agreed with plan. Discharge Plan Discharge Patient Disposition: Home Clinical Impression: Neck muscle strain Condition: Stable Prescriptions: New ketorolac 10 mg tablet 10 mg PO Q8H PRN (Reason: pain) 5 Days Qty: 15 0RF Rx Instructions: First p.o. dose can be 20 mg then 10 mg every 8 hours prn 5 days methocarbamol 750 mg tablet 750 mg PO Q8H PRN (Reason: muscle spasms and pain) Qty: 20 0RF No Action escitalopram oxalate 20 mg tablet 20 mg PO DAILY alprazolam 0.5 mg tablet 1 mg PO TID PRN (Reason: Anxiety) Medrol (Buddy) 4 mg tablets,dose pack 4 mg PO DAILY Qty: 21 0RF metformin 500 mg tablet 500 mg PO BID ergocalciferol (vitamin D2) 1,250 mcg (50,000 unit) capsule 1,250 mcg PO Q7D Rx Instructions: ON SUNDAY diclofenac sodium 75 mg tablet,delayed release (DR/EC) 75 mg PO Q12H PRN (Reason: pain) Qty: 20 0RF Discharge Orders: Discharge ED (Routine); Ordered 12/09/22 Ordered By: Chaitanya Ramsey Referrals: Carolyn Gallego [Primary Care Provider] - Discharge Diet: Regular Discharge Activity: Increase activity as tolerated Patient Instructions: Neck Pain (ED) Activity Restrictions/Additional Instructions: Follow-up with medical provider as directed in the next 5 to 7 days for reevaluation. Talk to your PCP about referring you to physical therapy to help with neck pain. Take medications as prescribed. Stretch neck muscles out daily and apply cold pack on sore area to help with symptoms. Return to the ER or your medical provider if condition worsens. Please read and understand discharge instructions. Thank you for choosing [facility] for your healthcare needs today. Please realize this is an emergency room and that we are providing you with a medical screening exam and this may not be complete and all inclusive of all the testing and or work up that you may need to determine your ailment or severity of your illness. It is very important that you follow up as instructed or that you return to the Emergency Department should you have concerns or if your condition changes or worsens in any way. Coding Level of Care Code ED Supervisor Asbestos Removal for Oskar Jean
[2022-12-09 02:35] VITALS: BP 124/75; PULSE 72; RESP 16; O2SAT 96
[2022-12-09] MEDS: methocarbamol 750 mg Tablet PO (02:36)
[2022-12-09] MEDS: ketorolac 60 mg/2 mL INJ IM (02:36)
[2022-12-09 02:43] VITALS: BP 124/75; PULSE 72; RESP 16; TEMP 36.6; O2SAT 96
== END 2022-12-09 02:44 | disposition home or self-care (01) ==
PROVIDERS: Emergency Provider Physician Assistant
DX: S13.9XXA Sprain of joints and ligaments of unspecified parts of neck, initial encounter (principal); X58.XXXA Exposure to other specified factors, initial encounter
CPT/HCPCS: 96372; 99284; J1885

== ENCOUNTER 2023-01-03 07:26 | Outpatient (CLI) | payer MEDICAID, SELFPAY ==
--- NOTE | 2023-01-03 07:38 | CT_ITS ---
WS: [id number] CT ABDOMEN WITHOUT CONTRAST HISTORY: CHRONIC ABDOMINAL PAIN/HEPATOSPLENOMEGALY ON U/S Contiguous single phase 5 mm axial imaging performed to the abdomen. Oral contrast has not been provi ded. Coronal and sagittal reformats are submitted. All CT scans at [facility] use at least on e of these dose optimization techniques: automated exposure control; mA and/or kV adjustment per alejandro ent size (includes targeted exams where dose is matched to clinical indication); or iterative reconst ruction. IV CONTRAST: None Oral contrast: No DLP: 528.98 mGy.cm COMPARISON: Abdomen ultrasound 11/17/2022 Lower thorax: Lung bases are clear. Heart is normal size. No hiatal hernia. Liver/biliary system: Liver is enlarged measuring 23 cm in length. Hounsfield units are moderately de creased from hepatic steatosis. On this unenhanced exam no masses are identified. Gallbladder: Normal. No gallstones or wall thickening. No pericholecystic fluid. Pancreas: Normal size pancreas and pancreatic duct. No adjacent inflammation. Spleen: Mildly enlarged spleen at 14.4 cm. Adrenal glands: Normal. Right kidney: Normal. Left kidney: Normal. Aorta: Normal. Lymphadenopathy: There are a few tiny mesenteric lymph nodes. Majority of these lymph nodes are very small beginning at the level of the gastrohepatic ligament and at the central small bowel mesentery. Free fluid: None. GI tract: Unremarkable. Abdominal wall: Unremarkable abdominal wall. No hernia. Visualized osseous structures: Unremarkable. CT/CT abdomen wo con [id number] IMPRESSION: 1. Marked hepatomegaly and mild splenomegaly. 2. Mild hepatic steatosis. 3. Very small mesenteric lymph nodes. Lymph nodes are subcentimeter and may be a reaction to a mild inflammatory process of sclerosing mesenteritis. There is no ascites and no associated mass. This can be further evaluated in [address] if clinically necessary.
== END 2023-01-03 07:27 | disposition home or self-care (01) ==
LOC: RAD 07:29
PROVIDERS: Visit Provider Family Medicine
DX: R10.9 Unspecified abdominal pain (principal); R16.2 Hepatomegaly with splenomegaly, not elsewhere classified; R16.0 Hepatomegaly, not elsewhere classified; K76.0 Fatty (change of) liver, not elsewhere classified
CPT/HCPCS: 74150

== ENCOUNTER 2023-01-19 20:50 | Emergency (ER) | payer MEDICAID, SELFPAY ==
[2023-01-19 20:55] VITALS: BMI 35.6
[2023-01-19 20:57] VITALS: BP 133/84; PULSE 79; RESP 16; TEMP 37.1; O2SAT 98
--- NOTE | 2023-01-19 21:22 | XRR_ITS ---
PROCEDURE INFORMATION: Exam: XR Lumbosacral Spine Exam date and time: 01/19/2023 9:39 PM Age: 32 years old Clinical indication: Low back pain; Additional info: Fall injury TECHNIQUE: Imaging protocol: Radiologic exam of the lumbosacral spine. Views: 2 or 3 views. COMPARISON: CT abdomen wo con [id number] 01/03/2023 7:55 AM FINDINGS: Bones/joints: The vertebral body alignment and stature is intact. No fracture or subluxation. The disc spaces are maintained. Mild anterior degenerative endplate changes at L3-L4. Soft tissues: Unremarkable. XR/XR lumbar spine 2-3V* [id number] IMPRESSION: No acute findings.
--- NOTE | 2023-01-19 21:22 | ED_ITS ---
HPI - Back Pain/Injury General: Chief Complaint: Back Pain/Injury Stated Complaint: Lower Back Pain Time Seen by Provider: 01/19/23 20:54 History of Present Illness: 32-year-old female was getting out of the truck yesterday and slipped and fell into a ditch. Patient reports some back pain that she felt was probably more likely a strain. Patient reports the pain increased throughout the night to the point that she was unable to sleep well so she had taken some ibuprofen and a le ftover tablet of muscle relaxer. Patient denies any other complaints. 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 Patient appears nontoxic. Patient appears in moderate pain. Review of Systems General: Reports: 10 or more systems reviewed and unremarkable except in HPI and below Musc: Reports: back pain PFSH ED PFSH: Medical History Blood type A+ COVID-19 Depression with anxiety Folliculitis Psychiatric care Surgical History No pertinent past surgical history Family History Grandfather Hypertension paternal Diabetes paternal Grandmother Stroke paternal Other Heart disease Denies family history of Colon cancer Ovarian cancer Hypercholesteremia Breast cancer Uterine cancer Thyroid disease Social History Smoking and tobacco status: former smoker Substance/Drug Use: never Female Reproductive History: Date of last menstrual period: 12/24/22 Physical Exam Const: COMMON NORMALS: alert HENMT: COMMON NORMALS: normocephalic HEAD & SCALP: normocephalic Neck/C-Spine: COMMON NORMALS: full ROM Resp: COMMON NORMALS: normal respiratory effort and clear to auscultation bilaterally AUSCULTATION: clear to auscultation bilaterally Cardio: COMMON NORMALS: regular rate and regular rhythm RATE: regular rate RHYTHM: regular rhythm GI: COMMON NORMALS: Soft to palpation PALPATION: Yes Soft to palpation Back/Pelvis: THORACIC SPINE/UPPER BACK: No thoracic spinal tenderness LUMBAR SPINE/LOWER BACK: No lumbar spinal tenderness and Yes paraspinal muscle tenderness Extremity: COMMON NORMALS: normal to inspection Neuro: SENSORIUM/ORIENTATION: Yes alert Skin: COMMON NORMALS: turgor normal GENERAL SKIN EXAM: turgor normal Course Vital Signs: Vital signs: Vital Signs Temperature 98.7 F 01/19/23 20:57 Pulse Rate 79 01/19/23 20:57 Respiratory Rate 16 01/19/23 20:57 Blood Pressure 133/84 01/19/23 20:57 Pulse Oximetry 98 01/19/23 20:57 Oxygen Delivery Me thod Room Air 01/19/23 20:57 MDM - Back Pain/Injury Medical Decision Making 32-year-old female comes in today with complaints of low back pain after fall injury. On exam patient has muscle tenderness in the lower back. No direct spinal tenderness is noted on palpation. Vital signs are normal. Differential diagnosis includes lumbar strain, intervertebral disc disease, facet arthropathy, vertebral fracture. X-ray of the lumbar spine was unremarkable except for some mild loss of curvature of the spine. Likely this is due to some muscle spasms. Reviewed exam with patient with recommendations for treatment and follow-up. Recommended exercise and increasing activity as tolerated. Patient was written a short course of muscle relaxers and NSAIDs along with a few hydrocodone for severe pain. Patient reported understanding of care plan and need for follow-up for further evaluation or new concerns. Labs Radiology Impressions Lumbar Spine X-Ray 01/19/23 21:22 IMPRESSION: No acute findings. Discharge Plan Discharge Patient Disposition: Home Clinical Impression: Spasm of muscle of lower back Strain of lumbar region Qualifiers: Encounter type: initial encounter Qualified Code(s): S39.012A - Strain of muscle, fascia and tendon of lower back, initial encounter Condition: Stable Prescriptions: New hydrocodone-acetaminophen 5-325 mg tablet 1 tab PO Q8H PRN (Reason: pain (scale score 7-10)) Qty: 10 0RF Continued methocarbamol 750 mg tablet 750 mg PO Q8H PRN (Reason: muscle spasms and pain) Qty: 20 0RF diclofenac sodium 75 mg tablet,delayed release (DR/EC) 75 mg PO Q12H PRN (Reason: pain) Qty: 20 0RF No Action escitalopram oxalate 20 mg tablet 20 mg PO DAILY sulfamethoxazole-trimethoprim [Bactrim DS] 800-160 mg tablet 1 tab PO Q12H 7 Days Qty: 14 0RF alprazolam 0.5 mg tablet 1 mg PO TID PRN (Reason: Anxiety) metformin 500 mg tablet 500 mg PO BID ergocalciferol (vitamin D2) 1,250 mcg (50,000 unit) capsule 1,250 mcg PO Q7D Rx Instructions: ON SUNDAY Discharge Orders: Discharge ED (Routine); Ordered 01/19/23 Ordered By: Gabriel Byers Referrals: Bhupinder Montalvo MD [Primary Care Provider] - Discharge Diet: Usual diet Discharge Activity: Increase activity as tolerated Patient Instructions: Back Pain (ED) Activity Restrictions/Additional Instructions: Home and rest. Drink plenty of water and fluids. Activity as tolerated. Gentle stretching and range of motion exercises. Follow-up with primary care for persistent symptoms. Return to ED for new concerns. 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
[2023-01-19] MEDS: ketorolac 30 mg/mL INJ IM (22:40)
[2023-01-19] MEDS: orphenadrine 30 mg/mL Inj 2 mL 60 MG IM (22:41)
== END 2023-01-19 23:02 | disposition home or self-care (01) ==
PROVIDERS: Emergency Provider Nurse Practitioner Family; PCP Family Medicine
DX: S39.012A Strain of muscle, fascia and tendon of lower back, initial encounter (principal); M62.830 Muscle spasm of back; Z79.84 Long term (current) use of oral hypoglycemic drugs; Z87.891 Personal history of nicotine dependence; W01.0XXA Fall on same level from slipping, tripping and stumbling without subsequent striking against object, initial encounter
CPT/HCPCS: 72100; 96372; 99284; J1885; J2360

== ENCOUNTER 2023-02-25 13:19 | Emergency (ER) | payer MEDICAID, SELFPAY ==
[2023-02-25 13:21] VITALS: BP 129/88; PULSE 84; RESP 16; TEMP 36.5; O2SAT 97; BMI 36.0
--- NOTE | 2023-02-25 13:32 | ED_ITS ---
HPI - Neck Pain/Injury General: Chief Complaint: Neck Pain/Injury Stated Complaint: sore throat Time Seen by Provider: 02/25/23 13:27 Source: patient Mode of arrival: ambulatory Limitations: no limitations History of Present Illness: 32-year-old female states she been having right-sided neck pain over the last 2 days. She states that she just got over having a sore throat and feels like she has some inflamed lymph nodes on the right side of her neck states very painful to touch along with moving her neck to the right. Denies any difficulty swallowing denies any fevers Associated symptoms: Denies headache(s) or nausea Review of Systems Const: Denies: fever(s) or chills ENMT: Reports: throat pain; Denies: dental pain Card: Denies: chest pain Resp: Denies: dyspnea GI: Denies: abdominal pain, nausea, vomiting or diarrhea Musc: Reports: neck pain; Denies: back pain Skin/Breast: Denies: rash Neuro: Denies: headache(s) PFSH ED PFSH: Medical History Blood type A+ COVID-19 Depression with anxiety Folliculitis Psychiatric care Surgical History No pertinent past surgical history Family History Grandfather Hypertension paternal Diabetes paternal Grandmother Stroke paternal Other Heart disease Denies family history of Colon cancer Ovarian cancer Hypercholesteremia Breast cancer Uterine cancer Thyroid disease Social History Smoking and tobacco status: former smoker Substance/Drug Use: never Physical Exam Const: COMMON NORMALS: no acute distress, patient oriented x3 and healthy appearing HENMT: COMMON NORMALS: normocephalic and atraumatic HEAD & SCALP: normocephalic and atraumatic THROAT: posterior oropharynx normal Eye: COMMON NORMALS: conjunctivae normal CONJUNCTIVA: Yes conjunctivae normal Neck/C-Spine: COMMON NORMALS: full ROM and supple OTHER: Mild lymphadenopathy to right side of the neck is with tenderness no large swelling no signs of abscess Chest: COMMONS NORMALS: normal inspection of the chest Resp: COMMON NORMALS: normal respiratory effort, No retractions, No use of accessory muscles and clear to auscultation bilaterally AUSCULTATION: clear to auscultation bilaterally Cardio: COMMON NORMALS: regular rate, regular rhythm and No murmurs present (Cardio) RATE: regular rate RHYTHM: regular rhythm Extremity: COMMON NORMALS: normal to inspection and full ROM Neuro: COMMON NORMALS: patient oriented x3, moves all extremities and no focal motor deficits Psych: COMMON NORMALS: mental status grossly normal, Normal thought process present and cooperative THOUGHT PROCESS: Normal thought process present Skin: COMMON NORMALS: no rashes or lesions noted and no wounds GENERAL SKIN EXAM: no rashes or lesions noted Course Vital Signs: Vital signs: Vital Signs Temperature 97.7 F 02/25/23 13:21 Pulse Rate 84 02/25/23 13:21 Respiratory Rate 16 02/25/23 13:21 Blood Pressure 129/88 02/25/23 13:21 Pulse Oximetry 97 02/25/23 13:21 Oxygen Delivery Me thod Room Air 02/25/23 13:21 MDM - Neck Pain/Injury Medical Decision Making Patient presents with neck pain does have lymphadenopathy no signs of abscess no large swelling we will place on Naprosyn patient stable for discharge follow-up PCP and return if worsening. Medical Records I reviewed the patient's medical records. Lab Data I reviewed the patient's lab results. Laboratory Results SARS-CoV-2 Ag (Rapid) negative (Negative) 02/25/23 13:30 Group A Strep Rapid Negative (Negative) 02/25/23 13:30 No radiology studies performed this visit Discharge Plan Discharge Patient Disposition: Home Clinical Impression: Lymphadenopathy of right cervical region, Neck pain Condition: Stable Prescriptions: New Naprosyn 500 mg tablet 500 mg PO BID PRN (Reason: pain) Qty: 20 0RF No Action escitalopram oxalate 20 mg tablet 20 mg PO DAILY sulfamethoxazole-trimethoprim [Bactrim DS] 800-160 mg tablet 1 tab PO Q12H 7 Days Qty: 14 0RF alprazolam 0.5 mg tablet 1 mg PO TID PRN (Reason: Anxiety) metformin 500 mg tablet 500 mg PO BID ergocalciferol (vitamin D2) 1,250 mcg (50,000 unit) capsule 1,250 mcg PO Q7D Rx Instructions: ON SUNDAY hydrocodone-acetaminophen 5-325 mg tablet 1 tab PO Q8H PRN (Reason: pain (scale score 7-10)) Qty: 10 0RF methocarbamol 750 mg tablet 750 mg PO Q8H PRN (Reason: muscle spasms and pain) Qty: 20 0RF diclofenac sodium 75 mg tablet,delayed release (DR/EC) 75 mg PO Q12H PRN (Reason: pain) Qty: 20 0RF Discharge Orders: Discharge ED (Routine); Ordered 02/25/23 Ordered By: Jude Hendricks Referrals: Bhupinder Montalvo MD [Primary Care Provider] - Discharge Diet: Advance as tolerated Discharge Activity: Resume usual activity Patient Instructions: Lymphadenopathy (ED), Acute Neck Pain (ED) 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
[2023-02-25 13:56] LABS: Rapid Strep A Test Negative (Negative)
[2023-02-25 14:01] LABS: SARS Covid-2 Antigen negative (Negative)
[2023-02-25] MEDS: HYDROcodone-acetaminophen 7.5-325 mg Tablet 1 TAB PO (14:11)
== END 2023-02-25 14:37 | disposition home or self-care (01) ==
PROVIDERS: Emergency Provider Emergency Medicine; PCP Family Medicine
DX: R59.0 Localized enlarged lymph nodes (principal); M54.2 Cervicalgia; Z79.84 Long term (current) use of oral hypoglycemic drugs; Z20.822 Contact with and (suspected) exposure to COVID-19; Z87.891 Personal history of nicotine dependence
CPT/HCPCS: 87081; 87426; 87880; 99283

== ENCOUNTER 2023-06-10 12:03 | Emergency (ER) | payer MEDICAID, SELFPAY ==
[2023-06-10 12:27] VITALS: BP 132/93; PULSE 93; RESP 17; TEMP 36.9; O2SAT 97
== END 2023-06-10 13:12 | disposition left against medical advice (07) ==
LOC: ER 12:07
PROVIDERS: Emergency Provider Family Medicine; PCP Family Medicine
DX: Z53.21 Procedure and treatment not carried out due to patient leaving prior to being seen by health care provider (principal)
CPT/HCPCS: 87426

== ENCOUNTER 2023-06-25 16:45 | Emergency (ER) | payer MEDICAID, SELFPAY ==
[2023-06-25 16:48] VITALS: BP 168/96; PULSE 105; RESP 16; TEMP 37.7; O2SAT 97; BMI 39.4
--- NOTE | 2023-06-25 17:20 | ED_ITS ---
HPI - COVID General: Chief Complaint: COVID symptoms Stated Complaint: headache, fever Time Seen by Provider: 06/25/23 17:13 Source: patient Mode of arrival: ambulatory Limitations: no limitations History of Present Illness: Patient presents emergency department today for evaluation treatment of fever, body aches, sore throat, and nausea. Patient reports that a couple weeks ago multiple members of her family tested positive for either COVID or influenza. Chart review shows she was seen on 06/10 and had a positive COVID test there but, indicates the test of her mother was mixed up with her's. Patient states that her test was negative at the time but that they just assumed she had COVID based on a positive family test and her presenting symptoms at that time. She reports she was ill for several days and then had improvement. It was not until today that she began feeling ill again. She complained of fever up to 101, severe sore throat, and now-nausea. Patient's son recently tested positive for influenza B. Patient states she has not taken anything for her symptoms yet today. COVID Results: SARS-CoV-2 Antigen (Rapid) Positive (Negative) H 06/10/23 13:3 6 SARS-CoV-2 RNA (RT-PCR) Not detected (NOT DETECTED) 12/30/20 1 5:29 SARS-CoV-2 (PCR) Detected (NOT DETECT) A 01/26/22 09:48 Coronavirus Type 229E (PCR) Not detected (NOT DETECT) 01/26/22 09:48 Review of Systems General: Reports: 10 or more systems reviewed and unremarkable except in HPI and below PFSH ED PFSH: Medical History Psychiatric care Folliculitis COVID-19 Blood type A+ Depression with anxiety Surgical History No pertinent past surgical history Family History Grandfather Hypertension paternal Diabetes paternal Grandmother Stroke paternal Other Heart disease Denies family history of Colon cancer Ovarian cancer Hypercholesteremia Breast cancer Uterine cancer Thyroid disease Social History Smoking and tobacco/nicotine status: former use of tobacco/nicotine Substance/Drug Use: never Physical Exam Const: COMMON NORMALS: patient oriented x3 and alert OTHER: Patient is pleasant, social. Answers her own history but obviously fatigued and does not feel well. HENMT: OTHER: Pharynx is moderately erythematous without signs of tonsillar exudate or petechial rash. Uvula is midline. Mucous membranes are moist. Eye: COMMON NORMALS: Equal, round and reactive pupils present, EOMs intact bilaterally and conjunctivae normal CONJUNCTIVA: Yes conjunctivae normal PUPIL: Yes Equal, round and reactive pupils present Lymph: LYMPHATIC: no lymphadenopathy noted Resp: COMMON NORMALS: normal respiratory effort, No retractions and No use of accessory muscles Cardio: OTHER: Mild tachycardia. : COMMON NORMALS: Yes no CVA tenderness BLADDER/KIDNEY EXAM: Yes no CVA tenderness Back/Pelvis: COMMON NORMALS: no CVA tenderness, thoracic and lumbar spine normal to inspection and thoraco-lumbar ROM normal Extremity: COMMON NORMALS: normal to inspection, full ROM and no pedal edema Neuro: COMMON NORMALS: patient oriented x3 SENSORIUM/ORIENTATION: Yes alert Skin: COMMON NORMALS: no rashes or lesions noted and turgor normal GENERAL SKIN EXAM: no rashes or lesions noted and turgor normal Course Vital Signs: Vital signs: Vital Signs Temperature 99.9 F H 06/25/23 16:48 Pulse Rate 100 06/25/23 17:45 Respiratory Rate 15 06/25/23 17:45 Blood Pressure 168/96 06/25/23 16:48 Pulse Oximetry 100 06/25/23 18:58 Oxygen Delivery Me thod Room Air 06/25/23 18:58 MDM - COVID Medical Decision Making Patient presents emergency department today with complaints of fever, sore throat, and upset stomach. While she has been exposed to multiple illnesses, she is tested negative for influenza today but positive for group A strep. Patient has tolerated p.o. intake here in the emergency department and was given a first round of antibiotic as her preferred pharmacy is currently closed. The rest of her prescription will be sent to her pharmacy to be picked up and continued in the morning. We did discuss contagious nature of this illness and recommended a new toothbrush in 72 hours. Continue to monitor symptoms at home for any change or worsening. Seek reevaluation should this occur. Differential Diagnosis Likely bacterial infection; Unlikely COVID 19, influenza, other viral infection or pneumonia Lab Data Laboratory Results Influenza Type A Ag negative (Negative) 06/25/23 18:02 Influenza Type B Ag negative (Negative) 06/25/23 18:02 Group A Strep Rapid Positive (Negative) H 06/25/23 18:02 SARS-CoV-2 Antigen (Rapid) Positive (Negative) H 06/10/23 13:3 6 SARS-CoV-2 RNA (RT-PCR) Not detected (NOT DETECTED) 12/30/20 1 5:29 SARS-CoV-2 (PCR) Detected (NOT DETECT) A 01/26/22 09:48 Coronavirus Type 229E (PCR) Not detected (NOT DETECT) 01/26/22 09:48 No radiology studies performed this visit Discharge Plan Discharge Patient Disposition: Home Clinical Impression: Strep pharyngitis Condition: Stable Prescriptions: New amoxicillin 500 mg tablet 500 mg PO TID 10 Days Qty: 30 0RF No Action prednisone 20 mg tablet 20 mg PO DAILY 5 Days Qty: 5 0RF escitalopram oxalate 20 mg tablet 20 mg PO DAILY alprazolam 0.5 mg tablet 1 mg PO TID PRN (Reason: Anxiety) Naprosyn 500 mg tablet 500 mg PO BID PRN (Reason: pain) Qty: 20 0RF metformin 500 mg tablet 500 mg PO BID ergocalciferol (vitamin D2) 1,250 mcg (50,000 unit) capsule 1,250 mcg PO Q7D Rx Instructions: ON SUNDAY diclofenac sodium 75 mg tablet,delayed release (DR/EC) 75 mg PO Q12H PRN (Reason: pain) Qty: 20 0RF Discharge Orders: Discharge ED (Routine); Ordered 06/25/23 Ordered By: Sherrie Beth Referrals: Bhupinder Montalvo MD [Primary Care Provider] - Discharge Diet: Advance as tolerated Discharge Activity: Increase activity as tolerated Patient Instructions: Strep Throat - Adult Activity Restrictions/Additional Instructions: Your influenza test is negative today but you did test positive for strep A. This is a contagious form of strep which can lead to scarlatina as well as rheumatic heart issues. For that reason, I do to treat with antibiotics. Your first round was provided here in the emergency department to you with the rest being sent to your preferred pharmacy to be picked up and continued in the morning. Be sure you are staying well-hydrated and use Tylenol and ibuprofen to help with fevers and discomfort. May still experience fevers and discomfort for another 24 to 48 hours while on the antibiotic. After that time, you should notice improvement and we do recommend switching out your toothbrush to prevent reinfection. 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
[2023-06-25 17:45] VITALS: PULSE 100; RESP 15; O2SAT 94
[2023-06-25 17:52] VITALS: O2SAT 95
[2023-06-25] MEDS: ketorolac 60 mg/2 mL INJ IM (17:53)
[2023-06-25 18:21] LABS: Rapid Strep A Test Positive (Negative)
[2023-06-25 18:31] LABS: Influenza A by IFA negative (Negative); Influenza B by IFA negative (Negative)
[2023-06-25] MEDS: ondansetron 4 MG Tablet PO (18:32)
--- NOTE | 2023-06-25 18:49 | PC.NURSE ---
REPORT TAKEN FROM VAUGHN BAUMAN AT THIS TIME.
[2023-06-25] MEDS: amoxicillin 500 mg Capsule PO (18:57)
[2023-06-25 18:58] VITALS: O2SAT 100
[2023-06-25 19:10] VITALS: PULSE 101; RESP 18; O2SAT 97
== END 2023-06-25 19:11 | disposition home or self-care (01) ==
PROVIDERS: Emergency Provider Physician Assistant; PCP Family Medicine
DX: J02.0 Streptococcal pharyngitis (principal); Z79.84 Long term (current) use of oral hypoglycemic drugs; Z87.891 Personal history of nicotine dependence
CPT/HCPCS: 87804; 87880; 96372; 99284; J1885; Q0162

== ENCOUNTER 2023-06-26 20:59 | Emergency (ER) | payer MEDICAID, SELFPAY ==
[2023-06-26 21:08] VITALS: PULSE 101; RESP 18; TEMP 37.3; O2SAT 98
--- NOTE | 2023-06-26 21:53 | ED_ITS ---
HPI - Fever General: Chief Complaint: Fever Stated Complaint: diagnosed with strep, pain, worse Time Seen by Provider: 06/26/23 21:07 Source: patient Mode of arrival: ambulatory Limitations: no limitations History of Present Illness: Patient presents emergency department today accompanied by family for evaluation treatment of continued fever and sore throat. I personally saw and evaluated this patient yesterday for sore throat and influenza-like symptoms. Patient tested negative for COVID and flu but did test positive for strep. Patient was started on amoxicillin at that time. Patient reports that she has taken 3 doses of amoxicillin and still feels quite poorly. She reports still being fevered and chilled. She is concerned as there are white spots on her tonsils. Review of Systems General: Reports: 10 or more systems reviewed and unremarkable except in HPI and below PFSH ED PFSH: Medical History Psychiatric care Folliculitis COVID-19 Blood type A+ Depression with anxiety Surgical History No pertinent past surgical history Family History Grandfather Hypertension paternal Diabetes paternal Grandmother Stroke paternal Other Heart disease Denies family history of Colon cancer Ovarian cancer Hypercholesteremia Breast cancer Uterine cancer Thyroid disease Social History Smoking and tobacco/nicotine status: former use of tobacco/nicotine Substance/Drug Use: never Physical Exam Const: COMMON NORMALS: patient oriented x3 and alert OTHER: Patient is pleasant, social. Answers her own history. She appears uncomfortable in the bed. HENMT: OTHER: Pharynx is erythematous. There is white tonsillar exudate noted bilaterally. Mallampati 2. Airway is still patent. Mucous membranes are moist. Uvula is midline. No unilateral soft palate swelling. Eye: COMMON NORMALS: Equal, round and reactive pupils present, EOMs intact bilaterally and conjunctivae normal CONJUNCTIVA: Yes conjunctivae normal PUPIL: Yes Equal, round and reactive pupils present Neck/C-Spine: COMMON NORMALS: no JVD Lymph: LYMPHATIC: no lymphadenopathy noted Resp: COMMON NORMALS: normal respiratory effort, No retractions and No use of accessory muscles Cardio: COMMON NORMALS: no JVD and regular rate RATE: regular rate : COMMON NORMALS: Yes no CVA tenderness BLADDER/KIDNEY EXAM: Yes no CVA tenderness Back/Pelvis: COMMON NORMALS: no CVA tenderness, thoracic and lumbar spine normal to inspection and thoraco-lumbar ROM normal Extremity: COMMON NORMALS: normal to inspection, full ROM and no pedal edema Neuro: COMMON NORMALS: patient oriented x3 SENSORIUM/ORIENTATION: Yes alert Skin: COMMON NORMALS: no rashes or lesions noted and turgor normal GENERAL SKIN EXAM: no rashes or lesions noted and turgor normal Course Vital Signs: Vital signs: Vital Signs Temperature 99.2 F 06/26/23 21:08 Pulse Rate 101 H 06/26/23 21:08 Respiratory Rate 18 06/26/23 21:08 Pulse Oximetry 98 06/26/23 21:08 Oxygen Delivery Me thod Room Air 06/26/23 21:08 MDM - Fever Medical Decision Making Patient has known group A strep. She has taken 24 hours of her medication and most likely has not been on it long enough to have developed improvement of symptoms at this time. However, we did discuss treatment with a pen G shot, steroid, and viscous lidocaine gargle. Patient is willing to do the shot if she does not have to continue to take antibiotic pills. She is encouraged to continue to push fluids. 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 She should watch for difficulty breathing, inability to tolerate her own salivary secretions, or one-sided throat swelling. Patient verbalizes understanding and agreement to treatment plan. Differential Diagnosis Unlikely abdominal pain, acute appendicitis, calculus of kidney, constipation, diverticulitis, gastroenteritis, pancreatitis or small bowel obstruction No radiology studies performed this visit Discharge Plan Discharge Patient Disposition: Home Clinical Impression: Strep pharyngitis Condition: Stable Prescriptions: New prednisone 20 mg tablet 20 mg PO BID 3 Days Qty: 6 0RF No Action prednisone 20 mg tablet 20 mg PO DAILY 5 Days Qty: 5 0RF escitalopram oxalate 20 mg tablet 20 mg PO DAILY alprazolam 0.5 mg tablet 1 mg PO TID PRN (Reason: Anxiety) Naprosyn 500 mg tablet 500 mg PO BID PRN (Reason: pain) Qty: 20 0RF metformin 500 mg tablet 500 mg PO BID ergocalciferol (vitamin D2) 1,250 mcg (50,000 unit) capsule 1,250 mcg PO Q7D Rx Instructions: ON SUNDAY diclofenac sodium 75 mg tablet,delayed release (DR/EC) 75 mg PO Q12H PRN (Reason: pain) Qty: 20 0RF amoxicillin 500 mg tablet 500 mg PO TID 10 Days Qty: 30 0RF Discharge Orders: Discharge ED (Routine); Ordered 06/26/23 Ordered By: Sherrie Beth Referrals: Bhupinder Montalvo MD [Primary Care Provider] - Discharge Diet: Advance as tolerated Discharge Activity: Increase activity as tolerated Patient Instructions: Strep Throat - Adult Activity Restrictions/Additional Instructions: As we know you have group A strep, we will switch your treatment over to a one- time shot. You do not need to continue taking the amoxicillin after this injection. I am providing you a short course of some steroid which will help with inflammation and pain in your throat as the medication begins to work. I also encourage you to use [id number] numbing medications such as Chloraseptic spray or Cepacol throat lozenges. These can also help you with generalized discomfort. Continue to push your fluids to stay well-hydrated and keep moisture and hydration in your throat. 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
[2023-06-26] MEDS: dexamethasone 10 mg/mL INJ IM (21:56)
[2023-06-26] MEDS: penicillin g (L-A) 1,200,000 unit/2 mL Syr 1200000 UNIT IM (21:56)
[2023-06-26] MEDS: lidocaine 2% viscous 15 mL UDC 10 ML MUCOUS MEM (21:57)
[2023-06-26 22:31] VITALS: PULSE 94; RESP 16; O2SAT 94
== END 2023-06-26 22:34 | disposition home or self-care (01) ==
PROVIDERS: Emergency Provider Physician Assistant; PCP Family Medicine
DX: J02.0 Streptococcal pharyngitis (principal)
CPT/HCPCS: 96372; 99284; J0561; J1100

== ENCOUNTER 2023-07-03 18:48 | Emergency (ER) | payer MEDICAID, SELFPAY ==
[2023-07-03 18:56] VITALS: BP 150/95; PULSE 85; RESP 16; TEMP 36.9; O2SAT 98
[2023-07-03 19:50] LABS: Basophils % 0.4 %; Eosinophils # 0.2 10^3/uL (0.0-0.8); Eosinophils % 2.8 %; Hematocrit 37.5 % (36-47); Lymphocytes # 2.3 10^3/uL (0.8-4.8); Lymphocytes % 27.6 %; Mean Corpuscular HGB Conc 32.5 g/dL (30-55); Mean Corpuscular Hemoglobin 27.4 pg (27-33); Mean Corpuscular Volume 84.3 fl (85-98); Monocytes # 0.5 10^3/uL (0.2-0.9); Monocytes % 5.7 %; Neutrophils # 5.22 10^3/uL (1.8-7.7); Neutrophils % 61.8 %; Nucleated Red Blood Cells % 0 %; Platelet Count 195 10^3/cmm (157-399); Red Blood Count 4.45 10^6/uL (3.85-5.65); White Blood Count 8.44 10^3/uL (3.29-11.43)
[2023-07-03 20:08] LABS: Alanine Aminotransferase 132 U/L (0-33); Albumin Level 4.3 g/dL (3.5-5.2); Alkaline Phosphatase 113 U/L (35-105); Anion Gap 18.9 (5-19); Aspartate Amino Transferase 55 U/L (0-32); Blood Urea Nitrogen 7 mg/dL (6-20); Calcium 9.4 mg/dL (8.5-10.5); Carbon Dioxide 22 mmol/L (22-29); Chloride 98 mmol/L (98-107); Globulin 3.7 g/dL (1.3-4.6); Glomerular Filtration Rate 142.1 mL/min (90-130); Glucose 229 mg/dL (65-115); Lipase 38 U/L (13-60); Magnesium 2.2 mg/dL (1.7-2.3); Osmolality Calculated 285 mOsm/kg (285-295); Potassium 3.9 mmol/L (3.5-5.1); Sodium 135 mmol/L (136-145); Total Bilirubin 0.3 mg/dL (0.15-1.2)
[2023-07-03 20:13] LABS: HCG, Serum Qual Negative (Negative)
--- NOTE | 2023-07-03 20:21 | ED_ITS ---
HPI - Abdominal Pain 2 General: Chief Complaint: Abdominal Pain Stated Complaint: diahreah Time Seen by Provider: 07/03/23 19:36 History of Present Illness: Patient presents to the ER with complaints of diarrhea for the last 3 days. Patient said his she has been taking amoxicillin for currently 3 days for strep throat which is improving however during this time she has been having severe diarrhea and mucousy stools to the point that she spends more time in the bathroom than anything else. She says everything she takes orally just go straight through her. Patient says she was seen at the clinic in [place] today they did a C. difficile test which was negative and urine which was negative. Patient says she feels this weird feeling that she only feels when she is . Patient has taken several home tests some of them are positive and others are negative. Review of Systems 2 General: Reports: 10 or more systems reviewed and unremarkable except in HPI and below PFSH ED 2 PFSH: Medical History Psychiatric care Folliculitis COVID-19 Blood type A+ Depression with anxiety Surgical History No pertinent past surgical history Family History Grandfather Hypertension paternal Diabetes paternal Grandmother Stroke paternal Other Heart disease Denies family history of Colon cancer Ovarian cancer Hypercholesteremia Breast cancer Uterine cancer Thyroid disease Social History Smoking and tobacco/nicotine status: former use of tobacco/nicotine Substance/Drug Use: never Physical Exam 2 Const: COMMON NORMALS: no acute distress, average body habitus, patient oriented x3, no limitations, healthy appearing, alert and well nourished HENMT: COMMON NORMALS: normocephalic, atraumatic, hearing grossly normal bilaterally, external ears normal, EAC's normal, Normal external nose present, moist oral mucous membranes and oropharynx normal HEAD & SCALP: normocephalic and atraumatic NOSE: Normal external nose present EXTERNAL EAR: Yes external ears normal EXTERNAL AUDITORY CANAL: EAC's normal Neck/C-Spine: COMMON NORMALS: full ROM, no lymphadenopathy, supple, no meningeal signs, no JVD and Thyroid normal THYROID: Thyroid normal Chest: COMMONS NORMALS: normal inspection of the chest and normal palpation of entire chest wall Resp: COMMON NORMALS: normal respiratory effort, No retractions, No use of accessory muscles and clear to auscultation bilaterally AUSCULTATION: clear to auscultation bilaterally Cardio: COMMON NORMALS: no JVD, regular rate, regular rhythm, S1 normal heart sound present, S2 normal heart sound present, No gallops present (Cardio), No clicks present (Cardio), No murmurs present (Cardio) and No rub (Cardio) R ATE: regular rate RHYTHM: regular rhythm HEART SOUNDS: S1 normal heart sound present and S2 normal heart sound present GI: COMMON NORMALS: Normal to inspection, nondistended, normoactive bowel sounds present, Soft to palpation, non-tender, No hepatosplenomegaly present and no masses PALPATION: Yes Soft to palpation and Yes No hepatosplenomegaly present Neuro: COMMON NORMALS: patient oriented x3 SENSORIUM/ORIENTATION: Yes alert MENINGEAL SIGNS: Yes no meningeal signs Skin: NARRATIVE SKIN EXAM: No tenting to the hand Course 2 Vital Signs: Vital signs: Vital Signs Temperature 98.5 F 07/03/23 18:56 Pulse Rate 85 07/03/23 18:56 Respiratory Rate 16 07/03/23 18:56 Blood Pressure 150/95 07/03/23 18:56 Pulse Oximetry 98 07/03/23 18:56 Oxygen Delivery Me thod Room Air 07/03/23 18:56 MDM - Abdominal Pain Medical Decision Making Patient lab work done in ER including CBC CMP lipase magnesium urinalysis and test. All of which were essentially benign or improved. Patient did have some glucose in her urine however she has been on prednisone recently. All of these results was described to the patient. Patient is comfortable being discharged. Patient be discharged to follow-up with her PCP within next 7 days for further evaluation treatment as needed. Differential Diagnosis Likely gastroenteritis; Unlikely abdominal pain, acute appendicitis, calculus of kidney, constipation, diverticulitis, endometriosis, pancreatitis or small bowel obstruction Medical Records I reviewed the patient's medical records. Lab Data I reviewed the patient's lab results. 07/03/23 19:14 07/03/23 19:14 Labs/Radiology: Laboratory Results WBC 8.44 10^3/uL (3.29-11.43) 07/03/23 19:14 RBC 4.45 10^6/uL (3.85-5.65) 07/03/23 19:14 Hgb 12.20 g/dL (11.27-16.99) 07/03/23 19:14 Hct 37.5 % (36-47) 07/03/23 19:14 MCV 84.3 fl (85-98) L 07/03/23 19:14 MCH 27.4 pg (27-33) 07/03/23 19:14 MCHC 32.5 g/dL (30-55) 07/03/23 19:14 RDW 13.0 % (12.1-15.1) 07/03/23 19:14 Plt Count 195 10^3/cmm (157-399) 07/03/23 19:14 MPV 10.0 fL (7.4-10.4) 07/03/23 19:14 Neut % (Auto) 61.8 % 07/03/23 19:14 Lymph % (Auto) 27.6 % 07/03/23 19:14 [place] % (Auto) 5.7 % 07/03/23 19:14 Eos % (Auto) 2.8 % 07/03/23 19:14 Baso % (Auto) 0.4 % 07/03/23 19:14 Neut # (Auto) 5.22 10^3/uL (1.8-7.7) 07/03/23 19:14 Lymph # (Auto) 2.3 10^3/uL (0.8-4.8) 07/03/23 19:14 [place] # (Auto) 0.5 10^3/uL (0.2-0.9) 07/03/23 19:14 Eos # (Auto) 0.2 10^3/uL (0.0-0.8) 07/03/23 19:14 Baso # (Auto) 0.0 10^3/uL (0.0-0.1) 07/03/23 19:14 Nucleated RBC % (auto) 0 % 07/03/23 19:14 Nucleated RBCs # 0.0 /100WBC 07/03/23 19:14 Sodium 135 mmol/L (136-145) L 07/03/23 19:14 Potassium 3.9 mmol/L (3.5-5.1) 07/03/23 19:14 Chloride 98 mmol/L (98-107) 07/03/23 19:14 Carbon Dioxide 22 mmol/L (22-29) 07/03/23 19:14 Anion Gap 18.9 (5-19) 07/03/23 19:14 BUN 7 mg/dL (6-20) 07/03/23 19:14 Creatinine 0.5 mg/dL (0.5-0.9) 07/03/23 19:14 GFR Calculation 142.1 mL/min (90-130) H 07/03/23 19:14 Glucose 229 mg/dL (65-115) H 07/03/23 19:14 Calculated Osmolality 285 mOsm/kg (285-295) 07/03/23 19:14 Calcium 9.4 mg/dL (8.5-10.5) 07/03/23 19:14 Magnesium 2.2 mg/dL (1.7-2.3) 07/03/23 19:14 Total Bilirubin 0.3 mg/dL (0.15-1.2) 07/03/23 19:14 AST 55 U/L (0-32) H 07/03/23 19:14 ALT 132 U/L (0-33) H 07/03/23 19:14 Alkaline Phosphatase 113 U/L (35-105) H 07/03/23 19:14 Total Protein 8.0 g/dL (6.6-8.7) 07/03/23 19:14 Albumin 4.3 g/dL (3.5-5.2) 07/03/23 19:14 Globulin 3.7 g/dL (1.3-4.6) 07/03/23 19:14 Lipase 38 U/L (13-60) 07/03/23 19:14 HCG, Qual Negative (Negative) 07/03/23 19:14 Urine Color Yellow (Yellow) 07/03/23 20:52 Urine Appearance Clear (CLEAR) 07/03/23 20:52 Urine pH 7 (5-7) 07/03/23 20:52 Ur Specific [place] 1.015 (1.005-1.030) 07/03/23 20:52 Urine Protein Neg (Negative) 07/03/23 20:52 Urine Glucose (UA) 4+ (Normal) H 07/03/23 20:52 Urine Ketones Negative (Negative) 07/03/23 20:52 Urine Blood Neg (Negative) 07/03/23 20:52 Urine Nitrate Negative (Negative) 07/03/23 20:52 Urine Bilirubin Neg (Negative) 07/03/23 20:52 Urine Urobilinogen Norm mg/dL (Negative) 07/03/23 20:52 Ur Leukocyte Esterase Negative (Negative) 07/03/23 20:52 All radiology interpretation(s) finalized by discharge Discharge Plan Discharge Patient Disposition: Home Clinical Impression: Diarrhea Qualifiers: Diarrhea type: unspecified type Qualified Code(s): R19.7 - Diarrhea, unspecified Condition: Stable Prescriptions: No Action prednisone 20 mg tablet 20 mg PO DAILY 5 Days Qty: 5 0RF escitalopram oxalate 20 mg tablet 20 mg PO DAILY alprazolam 0.5 mg tablet 1 mg PO TID PRN (Reason: Anxiety) Naprosyn 500 mg tablet 500 mg PO BID PRN (Reason: pain) Qty: 20 0RF metformin 500 mg tablet 500 mg PO BID ergocalciferol (vitamin D2) 1,250 mcg (50,000 unit) capsule 1,250 mcg PO Q7D Rx Instructions: ON SUNDAY diclofenac sodium 75 mg tablet,delayed release (DR/EC) 75 mg PO Q12H PRN (Reason: pain) Qty: 20 0RF amoxicillin 500 mg tablet 500 mg PO TID 10 Days Qty: 30 0RF Discharge Orders: Discharge ED (Routine); Ordered 07/03/23 Ordered By: Kenji Mendieta Referrals: Bhupinder Montalvo MD [Primary Care Provider] - Patient Instructions: Opioid Safety, Pain Management Activity Restrictions/Additional Instructions: Please push plenty of fluids as to not get dehydrated. Please follow-up with your found by physician within neck 7 to 10 days for further evaluation treatment as needed. If your symptoms worsen or become uncontrollable please return to the ER. 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
[2023-07-03 21:01] LABS: Add Urine Microscopic? NO; Charge for UA Resulting for Rev
[2023-07-03 21:07] LABS: Bilirubin Urine Neg (Negative); Blood Urine Neg (Negative); Glucose Urine UA 4+ (Normal); Ketones Urine Negative (Negative); Leukocyte Esterase Urine Negative (Negative); Nitrate Urine Negative (Negative); Protein Urine Neg (Negative); Specific Gravity, Urine 1.015 (1.005-1.030); Urine Appearance Clear (CLEAR); Urine Color Yellow (Yellow); Urobilinogen Urine Norm (Negative); pH Urine 7 (5-7)
== END 2023-07-03 21:33 | disposition home or self-care (01) ==
PROVIDERS: Emergency Medicine; Emergency Provider Emergency Medicine; PCP Family Medicine
DX: R19.7 Diarrhea, unspecified (principal); Z79.84 Long term (current) use of oral hypoglycemic drugs; Z87.891 Personal history of nicotine dependence
CPT/HCPCS: 36415; 80053; 81003; 83690; 83735; 84703; 85025; 99283

== ENCOUNTER 2023-07-05 17:04 | Emergency (ER) | payer MEDICAID, SELFPAY ==
[2023-07-05 17:23] VITALS: BP 144/87; PULSE 92; RESP 18; TEMP 36.7; O2SAT 99
--- NOTE | 2023-07-05 18:54 | W.ED.NAVMDI ---
HPI - Nausea/Vomiting/Diarrhea General: Chief complaint: Nausea/Vomiting/Diarrhea Stated complaint: sob, TC Time Seen by Provider: 07/05/23 18:46 History of Present Illness: 33-year-old female comes in today with shortness of breath starting today. Patient reports that she has had diarrhea persistent since being on amoxicillin for strep infection. Patient just completed the amoxicillin this morning. Patient was seen earlier this week and was evaluated for her persistent diarrhea and concern for possible . Symptoms are similar except she is added shortness of breath at this time. Patient appears nontoxic. Patient appears anxious. Patient appears in no pain. Patient denies any vomiting but reports significant diarrhea without blood. Associated nausea: Yes Associated symtoms: Reports nausea Review of Systems General: Reports: 10 or more systems reviewed and unremarkable except in HPI and below GI: Reports: nausea and diarrhea; Denies: vomiting or constipation PFSH ED PFSH: Medical History Psychiatric care Folliculitis COVID-19 Blood type A+ Depression with anxiety Surgical History No pertinent past surgical history Family History Grandfather Hypertension paternal Diabetes paternal Grandmother Stroke paternal Other Heart disease Denies family history of Colon cancer Ovarian cancer Hypercholesteremia Breast cancer Uterine cancer Thyroid disease Social History Smoking and tobacco/nicotine status: former use of tobacco/nicotine Substance/Drug Use: never Physical Exam Const: COMMON NORMALS: alert HENMT: COMMON NORMALS: normocephalic and TM's normal bilaterally HEAD & SCALP: normocephalic TYMPANIC MEMBRANE: TM's normal bilaterally THROAT: posterior oropharynx normal Neck/C-Spine: COMMON NORMALS: full ROM Resp: COMMON NORMALS: normal respiratory effort and clear to auscultation bilaterally AUSCULTATION: clear to auscultation bilaterally Cardio: COMMON NORMALS: regular rate and regular rhythm RATE: regular rate RHYTHM: regular rhythm GI: COMMON NORMALS: Soft to palpation PALPATION: Yes Soft to palpation Back/Pelvis: COMMON NORMALS: thoracic and lumbar spine normal to inspection Extremity: COMMON NORMALS: no pedal edema Neuro: SENSORIUM/ORIENTATION: Yes alert Skin: COMMON NORMALS: turgor normal GENERAL SKIN EXAM: turgor normal Course Vital Signs: Vital signs: Vital Signs Temperature 98.8 F 07/05/23 21:22 Pulse Rate 81 07/05/23 21:22 Respiratory Rate 16 07/05/23 21:22 Blood Pressure 126/85 07/05/23 21:22 Pulse Oximetry 98 07/05/23 21:22 Oxygen Delivery Me thod Room Air 07/05/23 21:22 MDM - Nausea/Vomiting/Diarrhea Medical Decision Making 33-year-old female comes in today for complaints of diarrhea and nausea. Patient appears nontoxic. Patient reports no pain. Patient has a mild right upper quadrant abdominal tenderness on palpation. Bowel sounds are present. Skin is warm and dry. Vital signs are normal. Differential diagnosis includes but not limited to , gallbladder disease, dehydration, electrolyte imbalance. CBC was unremarkable. CMP noted some elevated liver enzymes and alkaline phosphatase. Due to patient's symptoms was concerned about gallbladder disease. Including sludge or cholelithiasis. Ultrasound was performed and noted a normal gallbladder with some fatty liver disease. Patient is did have a positive test. hCG level is only 23. Recommend patient follow-up with primary care as this may just be a really early or a nonviable . At this time there is no sign of severe illness. Patient was given 1 L of IV fluids for concerns of mild dehydration due to persistent diarrhea. Patient was discharged home with recommendations for follow-up with primary care for further evaluation and treatment. Lab Data 07/05/23 19:05 07/05/23 19:05 Radiology Impressions Chest X-Ray 07/05/23 18:55 IMPRESSION: No acute findings. Gallbladder Ultrasound 07/05/23 20:26 IMPRESSION: 1. Hepatomegaly with hepatic parenchymal disease (likely fatty liver). No focal lesions. 2. No cholelithiasis or cholecystitis. Laboratory Results WBC 8.14 10^3/uL (3.29-11.43) 07/05/23 19:05 RBC 4.16 10^6/uL (3.85-5.65) 07/05/23 19:05 Hgb 11.30 g/dL (11.27-16.99) 07/05/23 19:05 Hct 34.2 % (36-47) L 07/05/23 19:05 MCV 82.2 fl (85-98) L 07/05/23 19:05 MCH 27.2 pg (27-33) 07/05/23 19:05 MCHC 33.0 g/dL (30-55) 07/05/23 19:05 RDW 13.2 % (12.1-15.1) 07/05/23 19:05 Plt Count 162 10^3/cmm (157-399) 07/05/23 19:05 MPV 9.9 fL (7.4-10.4) 07/05/23 19:05 Neut % (Auto) 63.9 % 07/05/23 19:05 Lymph % (Auto) 27.3 % 07/05/23 19:05 [place] % (Auto) 5.3 % 07/05/23 19:05 Eos % (Auto) 2.1 % 07/05/23 19:05 Baso % (Auto) 0.4 % 07/05/23 19:05 Neut # (Auto) 5.21 10^3/uL (1.8-7.7) 07/05/23 19:05 Lymph # (Auto) 2.2 10^3/uL (0.8-4.8) 07/05/23 19:05 [place] # (Auto) 0.4 10^3/uL (0.2-0.9) 07/05/23 19:05 Eos # (Auto) 0.2 10^3/uL (0.0-0.8) 07/05/23 19:05 Baso # (Auto) 0.0 10^3/uL (0.0-0.1) 07/05/23 19:05 Nucleated RBC % (auto) 0 % 07/05/23 19:05 Nucleated RBCs # 0.0 /100WBC 07/05/23 19:05 Sodium 136 mmol/L (136-145) 07/05/23 19:05 Potassium 3.9 mmol/L (3.5-5.1) 07/05/23 19:05 Chloride 101 mmol/L (98-107) 07/05/23 19:05 Carbon Dioxide 20 mmol/L (22-29) L 07/05/23 19:05 Anion Gap 18.9 (5-19) 07/05/23 19:05 BUN 10 mg/dL (6-20) 07/05/23 19:05 Creatinine 0.5 mg/dL (0.5-0.9) 07/05/23 19:05 GFR Calculation 142.1 mL/min (90-130) H 07/05/23 19:05 Glucose 230 mg/dL (65-115) H 07/05/23 19:05 Calculated Osmolality 288 mOsm/kg (285-295) 07/05/23 19:05 Calcium 9.9 mg/dL (8.5-10.5) 07/05/23 19:05 Total Bilirubin 0.3 mg/dL (0.15-1.2) 07/05/23 19:05 AST 90 U/L (0-32) H 07/05/23 19:05 ALT 113 U/L (0-33) H 07/05/23 19:05 Alkaline Phosphatase 108 U/L (35-105) H 07/05/23 19:05 Total Protein 7.7 g/dL (6.6-8.7) 07/05/23 19:05 Albumin 4.2 g/dL (3.5-5.2) 07/05/23 19:05 Globulin 3.5 g/dL (1.3-4.6) 07/05/23 19:05 Lipase 31 U/L (13-60) 07/05/23 19:05 HCG, Qual Positive (Negative) H 07/05/23 19:05 Ser , Semi-Qnt 23.23 mIU/mL 07/05/23 19:05 Urine Color Yellow (Yellow) 07/05/23 20:33 Urine Appearance Clear (CLEAR) 07/05/23 20:33 Urine pH 6 (5-7) 07/05/23 20:33 Ur Specific [place] 1.020 (1.005-1.030) 07/05/23 20:33 Urine Protein Neg (Negative) 07/05/23 20:33 Urine Glucose (UA) 4+ (Normal) H 07/05/23 20:33 Urine Ketones Negative (Negative) 07/05/23 20: Urine Blood Neg (Negative) 07/05/23 20:33 Urine Nitrate Negative (Negative) 07/05/23 20: Urine Bilirubin Neg (Negative) 07/05/23 20: Urine Urobilinogen Norm mg/dL (Negative) 07/05/23 20:33 Ur Leukocyte Esterase Negative (Negative) 07/05/23 20:33 All radiology interpretation(s) finalized by discharge Discharge Plan Discharge Patient Disposition: Home Clinical Impression: Antibiotic-associated diarrhea Qualifiers: Weeks of gestation: less than 8 weeks Qualified Code(s): Z3A.01 - Less than 8 weeks gestation of Condition: Stable Prescriptions: No Action prednisone 20 mg tablet 20 mg PO DAILY 5 Days Qty: 5 0RF escitalopram oxalate 20 mg tablet 20 mg PO DAILY alprazolam 0.5 mg tablet 1 mg PO TID PRN (Reason: Anxiety) Naprosyn 500 mg tablet 500 mg PO BID PRN (Reason: pain) Qty: 20 0RF metformin 500 mg tablet 500 mg PO BID ergocalciferol (vitamin D2) 1,250 mcg (50,000 unit) capsule 1,250 mcg PO Q7D Rx Instructions: ON SUNDAY diclofenac sodium 75 mg tablet,delayed release (DR/EC) 75 mg PO Q12H PRN (Reason: pain) Qty: 20 0RF Discharge Orders: Discharge ED (Routine); Ordered 07/05/23 Ordered By: Gabriel Byers Referrals: Bhupinder Montalvo MD [Primary Care Provider] - Discharge Diet: Usual diet Discharge Activity: Increase activity as tolerated Patient Instructions: Acute Diarrhea (ED) Activity Restrictions/Additional Instructions: Drink plenty of water. Drink electrolyte solution for persistent diarrhea. Activity as tolerated. Follow-up with primary care or [employer] for further evaluation and treatment of . 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
--- NOTE | 2023-07-05 18:55 | XRR_ITS ---
PROCEDURE INFORMATION: Exam: XR Chest Exam date and time: 07/05/2023 7:17 PM Age: 33 years old Clinical indication: Dyspnea TECHNIQUE: Imaging protocol: Radiologic exam of the chest. Views: 1 view. COMPARISON: CR XR ribs LT mn 3V w CXR1V [id number] 11/18/2022 10:03 AM FINDINGS: Lungs: Unremarkable. No consolidation. Pleural spaces: Unremarkable. No pleural effusion. No pneumothorax. Heart/Mediastinum: Unremarkable. No cardiomegaly. Bones/joints: Unremarkable. XR/XR chest 1V portable [id number] IMPRESSION: No acute findings.
[2023-07-05 19:14] LABS: Basophils % 0.4 %; Eosinophils # 0.2 10^3/uL (0.0-0.8); Eosinophils % 2.1 %; Hematocrit 34.2 % (36-47); Lymphocytes # 2.2 10^3/uL (0.8-4.8); Lymphocytes % 27.3 %; Mean Corpuscular Hemoglobin 27.2 pg (27-33); Mean Corpuscular Volume 82.2 fl (85-98); Mean Platelet Volume 9.9 fL (7.4-10.4); Monocytes # 0.4 10^3/uL (0.2-0.9); Monocytes % 5.3 %; Neutrophils # 5.21 10^3/uL (1.8-7.7); Neutrophils % 63.9 %; Nucleated Red Blood Cells % 0 %; Platelet Count 162 10^3/cmm (157-399); Red Blood Count 4.16 10^6/uL (3.85-5.65); Red Cell Distribution Width 13.2 % (12.1-15.1); White Blood Count 8.14 10^3/uL (3.29-11.43)
[2023-07-05] MEDS: lactated ringers 1,000 ML 999 ML IV (19:25)
[2023-07-05 19:52] LABS: HCG, Serum Qual Positive (Negative)
[2023-07-05 19:59] LABS: Alanine Aminotransferase 113 U/L (0-33); Albumin Level 4.2 g/dL (3.5-5.2); Alkaline Phosphatase 108 U/L (35-105); Anion Gap 18.9 (5-19); Aspartate Amino Transferase 90 U/L (0-32); Blood Urea Nitrogen 10 mg/dL (6-20); Calcium 9.9 mg/dL (8.5-10.5); Carbon Dioxide 20 mmol/L (22-29); Chloride 101 mmol/L (98-107); Globulin 3.5 g/dL (1.3-4.6); Glomerular Filtration Rate 142.1 mL/min (90-130); Glucose 230 mg/dL (65-115); Lipase 31 U/L (13-60); Osmolality Calculated 288 mOsm/kg (285-295); Potassium 3.9 mmol/L (3.5-5.1); Sodium 136 mmol/L (136-145); Total Bilirubin 0.3 mg/dL (0.15-1.2); Total Protein 7.7 g/dL (6.6-8.7)
--- NOTE | 2023-07-05 20:26 | USR_ITS ---
PROCEDURE INFORMATION: Exam: US Abdomen, Limited; Right Upper Quadrant Exam date and time: 07/05/2023 8:48 PM Age: 33 years old Clinical indication: Abdominal pain; Other: Ruq; ; Additional info: Ruq pain, n/v/d, elevated liver enzymes TECHNIQUE: Imaging protocol: Real time ultrasound of the abdomen with image documentation. Limited exam focused on the right upper quadrant. COMPARISON: US abdomen complete* [id number] 11/17/2022 8:58 AM FINDINGS: Liver: The liver is enlarged measuring up 22.7 cm in length. There is diffuse increased echogenicity throughout the liver with no focal lesions. Gallbladder: No stone or sludge in the gallbladder. No gallbladder wall thickening. No sonographic Portillo's sign. Biliary ducts: Common bile duct is normal in size measuring 5 mm. Pancreas: The visualized pancreas is unremarkable. Right kidney: The right kidney measures 12.5 cm in length no hydronephrosis or renal calculus. Spleen: The spleen was not visualized. Inferior vena cava: The visualized abdominal aorta and IVC are unremarkable. Portal venous: The main portal vein mildly enlarged measuring up to 17 mm. Appropriate direction of flow. US/US gall bladder [id number] IMPRESSION: 1. Hepatomegaly with hepatic parenchymal disease (likely fatty liver). No focal lesions. 2. No cholelithiasis or cholecystitis.
--- NOTE | 2023-07-05 20:27 | ECG_ITS ---
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 Measurements Intervals [place] Rate: 76 P: 41 GA: 191 QRS: -12 QRSD: 114 T: 3 QT: 412 QTc: 464 Interpretive Statements SINUS RHYTHM MODERATE INTRAVENTRICULAR CONDUCTION DELAY [110+ ms QRS DURATION] MODERATE VOLTAGE CRITERIA FOR LVH, CONSIDER NORMAL VARIANT [MEETS CRITERIA IN ONE OF: R(aVL), S(V1), R(V5), R(V5/V6)+S(V1)] Compared to ECG 12/27/2021 19:39:10 Intraventricular conduction delay now present Electronically Signed On 07-06-2023 6:50:56 RN NEONATAL ICU by Vitaliy Corrales M.D. [id number]
[2023-07-05 20:39] LABS: Add Urine Microscopic? NO; Charge for UA Resulting for Rev
[2023-07-05 20:41] LABS: Bilirubin Urine Neg (Negative); Blood Urine Neg (Negative); Glucose Urine UA 4+ (Normal); Ketones Urine Negative (Negative); Leukocyte Esterase Urine Negative (Negative); Nitrate Urine Negative (Negative); Protein Urine Neg (Negative); Urine Appearance Clear (CLEAR); Urine Color Yellow (Yellow); Urobilinogen Urine Norm (Negative); pH Urine 6 (5-7)
[2023-07-05 20:45] LABS: HCG Quantitative 23.23 mIU/mL
[2023-07-05 21:22] VITALS: BP 126/85; PULSE 81; RESP 16; TEMP 37.1; O2SAT 98
== END 2023-07-05 21:35 | disposition home or self-care (01) ==
PROVIDERS: Emergency Provider Nurse Practitioner Family; PCP Family Medicine
DX: O26.891 Other specified pregnancy related conditions, first trimester (principal); K52.1 Toxic gastroenteritis and colitis; T36.95XA Adverse effect of unspecified systemic antibiotic, initial encounter; Z87.891 Personal history of nicotine dependence; Z3A.01 Less than 8 weeks gestation of pregnancy
CPT/HCPCS: 36415; 71045; 76705; 80053; 81003; 83690; 84702; 84703; 85025; 93005; 96360; 96361; 99285; J7120

== ENCOUNTER → 2023-07-13 14:02 | Outpatient (BNVA) | payer MEDICAID, SELFPAY | PROVIDERS: PCP Family Medicine; Visit Provider Family Medicine | DX: E11.9 Type 2 diabetes mellitus without complications (principal); F33.2 Major depressive disorder, recurrent severe without psychotic features; F41.1 Generalized anxiety disorder; F41.9 Anxiety disorder, unspecified; F45.0 Somatization disorder; R79.89 Other specified abnormal findings of blood chemistry | CPT/HCPCS: 83036; 84439; 84443; 86705; 86706; 86709; 86803; 87340 ==

== ENCOUNTER 2023-08-08 19:22 | Emergency (ER) | payer MEDICAID, SELFPAY ==
--- NOTE | 2023-08-08 19:23 | XRR_ITS ---
PROCEDURE INFORMATION: Exam: XR Right Ankle Exam date and time: 08/08/2023 7:38 PM Age: 33 years old Clinical indication: Injury or trauma; Other: Rolled ankle; Swelling (edema); Right TECHNIQUE: Imaging protocol: Radiologic exam of the right ankle. Views: 3 or more views. COMPARISON: US soft tissue/extremity [id number] 08/02/2022 11:09 AM FINDINGS: Bones/joints: Normal. Soft tissues: Normal. XR/XR ankle RT min 3V* [id number] IMPRESSION: No acute findings.
[2023-08-08 19:56] VITALS: BP 124/77; PULSE 87; RESP 18; TEMP 36.6; O2SAT 97; BMI 39.4
--- NOTE | 2023-08-08 20:15 | W.ED.EXTPRO ---
HPI - Extremity Problem General: Chief complaint: Extremity Injury, Lower Stated complaint: right ankle pain Time Seen by Provider: 08/08/23 20:00 Source: patient Mode of arrival: ambulatory Limitations: no limitations History of Present Illness: 33-year-old female states she inverted her right ankle today while at work. States she has had some pain and swelling to the right lateral ankle since then she been able to ambulate on it states her pains of 3 out of 10 it is improved with rest denies any knee pain or any other injuries Associated symptoms: Deny chest pain, fever(s) or rash Review of Systems Const: Denies: fever(s), chills, body aches or change in appetite ENMT: Denies: throat pain or dental pain Card: Denies: chest pain Resp: Denies: dyspnea GI: Denies: abdominal pain, nausea, vomiting or diarrhea Musc: Reports: extremity pain; Denies: neck pain or back pain Skin/Breast: Denies: rash Neuro: Denies: headache(s) PFSH ED PFSH: Medical History History of miscarriage Type 2 diabetes mellitus Anxiety with somatization Generalized anxiety disorder Major depressive disorder, recurrent severe without psychotic features Folliculitis COVID-19 Blood type A+ Surgical History No pertinent past surgical history Family History Grandfather Hypertension paternal Diabetes paternal Grandmother Stroke paternal Other Heart disease Denies family history of Colon cancer Ovarian cancer Hypercholesteremia Breast cancer Uterine cancer Thyroid disease Social History Smoking and tobacco/nicotine status: former use of tobacco/nicotine Alcohol intake: former Substance/Drug Use: never Physical Exam Const: COMMON NORMALS: no acute distress, patient oriented x3 and healthy appearing HENMT: COMMON NORMALS: normocephalic and atraumatic HEAD & SCALP: normocephalic and atraumatic Neck/C-Spine: COMMON NORMALS: full ROM and supple Chest: COMMONS NORMALS: normal inspection of the chest Resp: COMMON NORMALS: normal respiratory effort Extremity: COMMON NORMALS: full ROM NARRATIVE EXTREMITY EXAM: Slight tenderness over right lateral ankle no obvious deformity Neuro: COMMON NORMALS: patient oriented x3, moves all extremities and no focal motor deficits Psych: COMMON NORMALS: mental status grossly normal, Normal thought process present and cooperative THOUGHT PROCESS: Normal thought process present Skin: COMMON NORMALS: no rashes or lesions noted and no wounds GENERAL SKIN EXAM: no rashes or lesions noted Course Vital Signs: Vital signs: Vital Signs Temperature 97.9 F 08/08/23 19:56 Pulse Rate 87 08/08/23 19:56 Respiratory Rate 18 08/08/23 19:56 Blood Pressure 124/77 08/08/23 19:56 Pulse Oximetry 97 08/08/23 19:56 Oxygen Delivery Me thod Room Air 08/08/23 19:56 MDM - Extremity (Nontraumatic) Medical Decision Making Patient presents for an ankle sprain x-ray shows no acute findings she is to ice rest take ibuprofen we will Mark wrap she stable for discharge follow-up with PCP. Medical Records I reviewed the patient's medical records. Lab Data Radiology Impressions Ankle X-Ray 08/08/23 19:23 IMPRESSION: No acute findings. All radiology interpretation(s) finalized by discharge Discharge Plan Discharge Patient Disposition: Home Clinical Impression: Ankle sprain and strain Condition: Stable Prescriptions: No Action escitalopram oxalate 20 mg tablet 20 mg PO DAILY metformin 500 mg tablet 500 mg PO BID Qty: 180 1RF alprazolam 0.5 mg tablet 1.5 mg PO DAILY PRN (Reason: Anxiety) Naprosyn 500 mg tablet 500 mg PO BID PRN (Reason: pain) Qty: 20 0RF ergocalciferol (vitamin D2) 1,250 mcg (50,000 unit) capsule 1,250 mcg PO Q7D Rx Instructions: ON SUNDAY Discharge Orders: Discharge ED (Routine); Ordered 08/08/23 Ordered By: Jude Hendricks Referrals: Dylan Ayoub MD [Primary Care Provider] - 4-7 days Discharge Diet: Advance as tolerated Discharge Activity: Increase activity as tolerated Patient Instructions: Ankle Sprain (ED) Stand Alone Forms: Work/School Release Coding Level of Care Code ED Tube 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
== END 2023-08-08 20:38 | disposition home or self-care (01) ==
PROVIDERS: Emergency Provider Emergency Medicine; PCP Family Medicine
DX: S93.401A Sprain of unspecified ligament of right ankle, initial encounter (principal); S96.911A Strain of unspecified muscle and tendon at ankle and foot level, right foot, initial encounter; Z79.84 Long term (current) use of oral hypoglycemic drugs; Z87.891 Personal history of nicotine dependence; E11.9 Type 2 diabetes mellitus without complications; X50.1XXA Overexertion from prolonged static or awkward postures, initial encounter; Y99.0 Civilian activity done for income or pay
CPT/HCPCS: 73610; 99283; E0114

== ENCOUNTER 2023-08-23 18:41 | Emergency (ER) | payer MEDICAID, SELFPAY ==
[2023-08-23 18:53] VITALS: BP 164/95; PULSE 88; RESP 18; TEMP 37.2; O2SAT 98; BMI 39.4
--- NOTE | 2023-08-23 18:55 | XRR_ITS ---
PROCEDURE INFORMATION: Exam: XR Right Ankle Exam date and time: 08/23/2023 8:18 PM Age: 33 years old Clinical indication: Pain and injury or trauma; Fall; Work related; Swelling (edema); Right; Patient HX: RT lateral pain/swelling; Rolled ankle x 3 weeks ago TECHNIQUE: Imaging protocol: Radiologic exam of the right ankle. Views: 3 or more views. COMPARISON: CR (LOW EXM, ) 08/08/2023 7:38 PM FINDINGS: Bones/joints: Distal Achilles tendon degenerative calcification. Soft tissues: Mild soft tissue swelling over the lateral malleolus. XR/XR ankle RT min 3V* [id number] IMPRESSION: 1. Negative for fracture or dislocation, if concern for fracture remains consider further evaluation with a CT scan. 2. Distal Achilles tendon degenerative calcification. 3. Mild soft tissue swelling over the lateral malleolus.
--- NOTE | 2023-08-23 20:33 | ED_ITS ---
HPI - Extremity Problem General: Chief complaint: Extremity Injury, Lower Stated complaint: Ankle swelling Time Seen by Provider: 08/23/23 20:29 History of Present Illness: 33-year-old female comes in today with c omplaints of bilateral ankle pain. Patient reports that she rolled her ankle, the right 1, about 3 weeks ago and has been favoring it since. Patient now reports that the left ankle is has some pain and swelling. Patient appears nontoxic. Patient uses crutches for am bulation. Patient has some mild swelling to bilateral ankles. Review of Systems General: Reports: 10 or more systems reviewed and unremarkable except in HPI and below Musc: Reports: joint pain (Bilateral ankles) PFSH ED PFSH: Medical History History of miscarriage Type 2 diabetes mellitus Anxiety with somatization Generalized anxiety disorder Major depressive disorder, recurrent severe without psychotic features Folliculitis COVID-19 Blood type A+ Surgical History No pertinent past surgical history Family History Grandfather Hypertension paternal Diabetes paternal Grandmother Stroke paternal Other Heart disease Denies family history of Colon cancer Ovarian cancer Hypercholesteremia Breast cancer Uterine cancer Thyroid disease Social History Smoking and tobacco/nicotine status: former use of tobacco/nicotine Alcohol intake: former Substance/Drug Use: never Physical Exam Const: COMMON NORMALS: alert HENMT: COMMON NORMALS: normocephalic HEAD & SCALP: normocephalic Neck/C-Spine: COMMON NORMALS: full ROM Resp: COMMON NORMALS: normal respiratory effort Cardio: COMMON NORMALS: regular rate RATE: regular rate Back/Pelvis: COMMON NORMALS: thoracic and lumbar spine normal to inspection Extremity: RIGHT LOWER EXTREMITY: Yes foot & digits (Mild swelling no deformity) LEFT LOWER EXTREMITY: Yes ankle joint (Lateral swelling no deformity) Neuro: SENSORIUM/ORIENTATION: Yes alert Skin: COMMON NORMALS: turgor normal GENERAL SKIN EXAM: turgor normal Course Vital Signs: Vital signs: Vital Signs Temperature 98.9 F 08/23/23 18:53 Pulse Rate 88 08/23/23 18:53 Respiratory Rate 18 08/23/23 18:53 Blood Pressure 164/95 08/23/23 18:53 Pulse Oximetry 98 08/23/23 18:53 MDM - Extremity (Nontraumatic) Medical Decision Making 33-year-old female comes in today for complaints of right ankle injury. Patient had a rolled her ankle approximately 3 weeks ago. Patient reports persistent pain and discomfort. On exam patient has some swelling to both ankles. But no redness and no induration. Pulses are intact. Differential diagnosis includes but not limited to osteoarthritis, tendinopathy, ankle sprain. Reviewed exam with patient with recommendations for treatment and follow-up with ankle and foot surgeon. Patient agrees with plan and recommendations. XR interpretation done by ED provider, pending radiology final review Discharge Plan Discharge Patient Disposition: Home Clinical Impression: Ankle sprain and strain Condition: Stable Prescriptions: New meloxicam 15 mg tablet 15 mg PO DAILY Qty: 30 0RF Rx Instructions: do not take with ibuprofen or naproxen No Action escitalopram oxalate 20 mg tablet 20 mg PO DAILY metformin 500 mg tablet 500 mg PO BID Qty: 180 1RF alprazolam 0.5 mg tablet 1.5 mg PO DAILY PRN (Reason: Anxiety) Naprosyn 500 mg tablet 500 mg PO BID PRN (Reason: pain) Qty: 20 0RF ergocalciferol (vitamin D2) 1,250 mcg (50,000 unit) capsule 1,250 mcg PO Q7D Rx Instructions: ON SUNDAY Discharge Orders: Discharge ED (Routine); Ordered 08/23/23 Ordered By: Gabriel Byers Referrals: Dylan Ayoub MD [Primary Care Provider] - Discharge Diet: Usual diet Discharge Activity: Increase activity as tolerated Patient Instructions: Ankle Sprain (ED) Activity Restrictions/Additional Instructions: Follow-up with ankle and foot surgeon for further evaluation and treatment. Return to ED for new concerns. Coding Level of Care Code ED Manager Home Healthcare for Oskar Jean
--- NOTE | 2023-08-24 00:42 | DCPLANNER ---
Message sent to Podiatry for a Follow-up with ankle and foot surgeon for further evaluation and treatment. Return to ED for new concerns.
== END 2023-08-23 20:47 | disposition home or self-care (01) ==
PROVIDERS: Emergency Provider Nurse Practitioner Family; PCP Family Medicine
DX: S93.401A Sprain of unspecified ligament of right ankle, initial encounter (principal); S96.911A Strain of unspecified muscle and tendon at ankle and foot level, right foot, initial encounter; Z87.891 Personal history of nicotine dependence; E11.9 Type 2 diabetes mellitus without complications; X50.1XXA Overexertion from prolonged static or awkward postures, initial encounter
CPT/HCPCS: 73610; 99283

== ENCOUNTER → 2023-08-30 09:35 | Outpatient (BNVA) | payer MEDICAID, SELFPAY | PROVIDERS: PCP Family Medicine; Visit Provider Internal Medicine | DX: E11.9 Type 2 diabetes mellitus without complications (principal); R79.89 Other specified abnormal findings of blood chemistry; E78.2 Mixed hyperlipidemia; K76.0 Fatty (change of) liver, not elsewhere classified | CPT/HCPCS: 36415; 80061 ==

== ENCOUNTER 2023-12-21 05:45 | Emergency (ER) | payer MEDICAID, SELFPAY ==
[2023-12-21 05:50] VITALS: BP 128/89; PULSE 76; RESP 18; TEMP 36.8; O2SAT 99; BMI 37.8
[2023-12-21 05:56] VITALS: BP 128/89; PULSE 72; RESP 18; O2SAT 100
--- NOTE | 2023-12-21 06:04 | ED_ITS ---
HPI - Headache 2 General: Chief Complaint: Headache Stated Complaint: migraine 4+ days Time Seen by Provider: 12/21/23 05:59 Source: patient Mode of arrival: ambulatory History of Present Illness: 33-year-old female presents to the emerg ency room with complaints of a migraine in the left occipital region that has been present for the last 4 days progressively worsening. She has had headaches in the past was never had a headache quite like this. She not had any numbness or weakness she has had a little bit of blurring of her vision. No difficulty with speech or swallowing. She states her dog hit her head in that region months but seem to precipitate the headache. She has tried [id number] Tylenol ibuprofen she is also tried prescription meloxicam with no relief. 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 Patient is diabetic she is on Januvia and GLP-1 she also mentioned Levemir although initially I do not see it on her medication list. Unfortunately she has lost her glucometer and has not been checking her blood sugars. MD elicited complaint: migraine Pertinent past history: migraines Onset (ago): day(s) (4) Location: left and occipital Severity: severe Quality & Timing: throbbing Exacerbating factors: other (Inspiration) Relieving factors: nothing Associated symptoms: Reports nausea; Deny chest pain, confusion, cough, diaphoresis, eye pain, eye redness, fever(s), lightheadedness, loss of vision, malaise, neck stiffness, numbness, paresthesias, photophobia, pre-syncope, rash, seizures, short of breath, sound sensitivity, syncope, vomiting or weakness Review of Systems 2 Const: Denies: fever(s), chills, malaise or diaphoresis Card: Denies: chest pain, lightheadedness, syncope or pre-syncope Resp: Denies: dyspnea GI: Reports: nausea; Denies: abdominal pain or vomiting : Denies: dysuria, urinary frequency or urinary urgency Musc: Reports: neck pain; Denies: back pain Skin/Breast: Denies: rash Neuro: Reports: headache(s); Denies: numbness in extremities, weakness in extremities or confusion PFSH ED 2 PFSH: Medical History History of miscarriage Type 2 diabetes mellitus Anxiety with somatization Generalized anxiety disorder Major depressive disorder, recurrent severe without psychotic features Folliculitis COVID-19 Blood type A+ Surgical History No pertinent past surgical history Family History Grandfather Hypertension paternal Diabetes paternal Grandmother Stroke paternal Other Heart disease Denies family history of Colon cancer Ovarian cancer Hypercholesteremia Breast cancer Uterine cancer Thyroid disease Social History Smoking and tobacco/nicotine status: former use of tobacco/nicotine Alcohol intake: former Substance/Drug Use: never Physical Exam 2 Const: COMMON NORMALS: no acute distress GENERAL APPEARANCE: cooperative and comfortable ORIENTATION/CONSCIOUSNESS: Yes awake, Yes oriented to person, Yes oriented to place and Yes oriented to time HENMT: COMMON NORMALS: normocephalic, atraumatic and hearing grossly normal bilaterally HEAD & SCALP: normocephalic and atraumatic Eye: DIRECT OPHTHALMOSCOPY: No photophobia Resp: COMMON NORMALS: normal respiratory effort, No retractions, No use of accessory muscles and clear to auscultation bilaterally AUSCULTATION: clear to auscultation bilaterally Cardio: COMMON NORMALS: regular rate, regular rhythm and No murmurs present (Cardio) RATE: regular rate RHYTHM: regular rhythm GI: COMMON NORMALS: Soft to palpation and No hepatosplenomegaly present A USCULTATION: Yes normoactive bowel sounds PALPATION: Yes Soft to palpation, No Tenderness to palpation present (GI), No Guarding due to palpation present (GI) and Yes No hepatosplenomegaly present Extremity: COMMON NORMALS: normal to inspection, capillary refill normal, no clubbing, cyanosis or edema, no calf tenderness and no pedal edema Neuro: SENSORIUM/ORIENTATION: Yes oriented to person, Yes oriented to place and Yes oriented to time Skin: COMMON NORMALS: no rashes or lesions noted GENERAL SKIN EXAM: no rashes or lesions noted Course 2 Vital Signs: Vital signs: Vital Signs Temperature 98.3 F 12/21/23 05:50 Pulse Rate 63 12/21/23 07:35 Respiratory Rate 18 12/21/23 06:32 Blood Pressure 110/62 12/21/23 07:35 Pulse Oximetry 96 12/21/23 07:35 Oxygen Delivery Me thod Room Air 12/21/23 07:35 MDM - Headache Medical Decision Making Migraine for 4 days relieved with medications given in the emergency room will discharge patient home because she can use Phenergan that she was given today along with ibuprofen or Tylenol if needed for further headaches if has worsening upper symptoms either intensity or frequency should follow-up with her primary care to see about prophylactic medications long-term or referral to neurology as felt appropriate. Reviewed findings with patient. Including head CT which was unremarkable. Medical Records I reviewed the patient's medical records. Lab Data I reviewed the patient's lab results. 12/21/23 07:03 12/21/23 07:[address] 12/21/23 06:11 IMPRESSION: No acute intracranial abnormality. ASSESSMENT: ASPECTS ([place] Stroke Program Early CT Score) is 10. Laboratory Results WBC 5.01 10^3/uL (3.29-11.43) 12/21/23 07:03 RBC 4.09 10^6/uL (3.85-5.65) 12/21/23 07:03 Hgb 10.80 g/dL (11.27-16.99) L 12/21/23 07:03 Hct 34.8 % (36-47) L 12/21/23 07:03 MCV 85.1 fl (85-98) 12/21/23 07:03 MCH 26.4 pg (27-33) L 12/21/23 07:03 MCHC 31.0 g/dL (30-55) 12/21/23 07:03 RDW 13.2 % (12.1-15.1) 12/21/23 07:03 Plt Count 126 10^3/cmm (157-399) L 12/21/23 07:03 MPV 10.3 fL (7.4-10.4) 12/21/23 07:03 Neut % (Auto) 51.7 % 12/21/23 07:03 Lymph % (Auto) 38.1 % 12/21/23 07:03 Gem % (Auto) 6.2 % 12/21/23 07:03 Eos % (Auto) 3.4 % 12/21/23 07:03 Baso % (Auto) 0.4 % 12/21/23 07:03 Neut # (Auto) 2.59 10^3/uL (1.8-7.7) 12/21/23 07:03 Lymph # (Auto) 1.9 10^3/uL (0.8-4.8) 12/21/23 07:03 Gem # (Auto) 0.3 10^3/uL (0.2-0.9) 12/21/23 07:03 Eos # (Auto) 0.2 10^3/uL (0.0-0.8) 12/21/23 07:03 Baso # (Auto) 0.0 10^3/uL (0.0-0.1) 12/21/23 07:03 Nucleated RBC % (auto) 0 % 12/21/23 07:03 Nucleated RBCs # 0.0 /100WBC 12/21/23 07:03 Sodium 139 mmol/L (136-145) 12/21/23 07:03 Potassium 3.8 mmol/L (3.5-5.1) 12/21/23 07:03 Chloride 105 mmol/L (98-107) 12/21/23 07:03 Carbon Dioxide 21 mmol/L (22-29) L 12/21/23 07:03 Anion Gap 16.8 (5-19) 12/21/23 07:03 BUN 10 mg/dL (6-20) 12/21/23 07:03 Creatinine 0.5 mg/dL (0.5-0.9) 12/21/23 07:03 GFR Calculation 142.1 mL/min (90-130) H 12/21/23 07:03 Glucose 146 mg/dL (65-115) H 12/21/23 07:03 POC Glucose 147 mg/dL (70-110) H 12/21/23 06:31 Calculated Osmolality 290 mOsm/kg (285-295) 12/21/23 07:03 Calcium 8.8 mg/dL (8.5-10.5) 12/21/23 07:03 Total Bilirubin 0.4 mg/dL (0.15-1.2) 12/21/23 07:03 AST 58 U/L (0-32) H 12/21/23 07:03 ALT 83 U/L (0-33) H 12/21/23 07:03 Alkaline Phosphatase 105 U/L (35-105) 12/21/23 07:03 Total Protein 7.2 g/dL (6.6-8.7) 12/21/23 07:03 Albumin 4.0 g/dL (3.5-5.2) 12/21/23 07:03 Globulin 3.2 g/dL (1.3-4.6) 12/21/23 07:03 Urine Color Yellow (Yellow) 12/21/23 07:50 Urine Appearance Slightly cloudy (CLEAR) 12/21/23 07:50 Urine pH 5 (5-7) 12/21/23 07:50 Ur Specific [place] 1.020 (1.005-1.030) 12/21/23 07:50 Urine Protein Neg (Negative) 12/21/23 07:50 Urine Glucose (UA) Norm (Normal) 12/21/23 07:50 Urine Ketones 1+ (Negative) H 12/21/23 07:50 Urine Blood Neg (Negative) 12/21/23 07:50 Urine Nitrate Negative (Negative) 12/21/23 07:50 Urine Bilirubin 1+ (Negative) H 12/21/23 07:50 Urine Urobilinogen Neg mg/dL (Negative) 12/21/23 07:50 Ur Leukocyte Esterase Negative (Negative) 12/21/23 07:50 Urine RBC 0-4 /hpf (0-2) H 12/21/23 07:50 Urine WBC 0-4 /hpf (0-5) H 12/21/23 07:50 Ur Squamous Epith Cells 5-10 /hpf (0-5) H 12/21/23 07:50 Amorphous Sediment Not Reportable 12/21/23 07:50 Urine Bacteria 2+ /hpf (NONE) H 12/21/23 07:50 Urine Mucus 3+ /hpf 12/21/23 07:50 All radiology interpretation(s) finalized by discharge Discharge Plan Discharge Patient Disposition: Home Clinical Impression: Migraine, Fatty liver disease, nonalcoholic Condition: Stable Prescriptions: New promethazine 25 mg tablet 25 mg PO Q6H PRN (Reason: headache) Qty: 20 0RF No Action escitalopram oxalate 20 mg tablet 20 mg PO DAILY Trulicity 1.5 mg/0.5 mL pen injector 1.5 mg SUBCUT Q7D Qty: 2 0RF alprazolam 1 mg tablet See Rx Instructions .ROUTE .COMPLEX Rx Instructions: TAKE 0.5MG (1/2 TABLET) BY MOUTH IN THE MORNING AND 1 TABLET AT BEDTIME. Januvia 100 mg tablet 100 mg PO DAILY insulin glargine [Lantus Solostar U-100 Insulin] 100 unit/mL (3 mL) insulin pen 10 unit SUBCUT QAM meloxicam 15 mg tablet 15 mg PO DAILY PRN (Reason: HEADACHE ) Rx Instructions: do not take with ibuprofen or naproxen Discharge Orders: Discharge ED (Routine); Ordered 12/21/23 Ordered By: Gabe Reveles Referrals: Pricilla Malcolm PA-C [Primary Care Provider] - Discharge Diet: Usual diet Discharge Activity: Increase activity as tolerated Patient Instructions: Opioid Safety, Pain Management Activity Restrictions/Additional Instructions: Thank you for choosing [facility] for your healthcare needs today. It is very important that you follow up as instructed or that you return to the Emergency Department should you have concerns or if your condition changes or worsens in any way. You are seen today for headache. CT of your head was negative your laboratory test showed elevation of your liver enzymes consistent with a history of nonalcoholic steatohepatitis (fatty liver). You can use promethazine as needed along with ibuprofen or Tylenol for recurrent headaches. If the headaches begin to recur regularly you should follow-up with your primary care doctor for further evaluation and long-term treatment options. Follow-up on your fatty liver disease as previously scheduled with your primary care doctor Stand Alone Forms: Work/School Release Coding Level of Care Code ED Corduroy Cutting Supervisor for Oskar Jean
--- NOTE | 2023-12-21 06:11 | CTR_ITS ---
PROCEDURE INFORMATION: Exam: CT Head Without Contrast Exam date and time: 12/21/2023 6:38 AM Age: 33 years old Clinical indication: Stroke-like symptoms; Headache; Additional info: New onset headache, closed head injury TECHNIQUE: Imaging protocol: Computed tomography of the head without contrast. Radiation optimization: All CT scans at this facility use at least one of these dose optimization techniques: automated exposure control; mA and/or kV adjustment per patient size (includes targeted exams where dose is matched to clinical indication); or iterative reconstruction. Other technique: STROKE PROTOCOL was implemented. COMPARISON: CT head wo con* [id number] 08/22/2022 5:23 PM RADIATION DOSE METRICS: Total DLP (mGy-cm): 1077.68 FINDINGS: Brain: Normal. No hemorrhage. Unremarkable white matter. No mass effect. Cerebral ventricles: No ventriculomegaly. Paranasal sinuses: Visualized sinuses are unremarkable. No fluid levels. Mastoid air cells: Visualized mastoid air cells are well aerated. Bones: Unremarkable. No acute fracture. Soft tissues: Unremarkable. CT/CT head wo con* [id number] IMPRESSION: No acute intracranial abnormality. ASSESSMENT: ASPECTS ([place] Stroke Program Early CT Score) is 10.
[2023-12-21] MEDS: ketorolac 30 mg/mL INJ IVP (06:15)
[2023-12-21] MEDS: diphenhydrAMINE 50 mg/mL SDV 1mL IVP (06:17)
[2023-12-21] MEDS: metoclopramide 5 mg/mL SDV 2 mL 10 MG IVP (06:21)
[2023-12-21] MEDS: valproic acid inj 500 MG in sodium chloride 0.9% 50 ML 55 MG IV (06:27)
[2023-12-21 06:32] VITALS: BP 117/70; PULSE 64; RESP 18; O2SAT 99
[2023-12-21 06:33] LABS: Glucose Point of Care 147 mg/dL (70-110)
[2023-12-21 07:10] LABS: Basophils % 0.4 %; Eosinophils # 0.2 10^3/uL (0.0-0.8); Eosinophils % 3.4 %; Hematocrit 34.8 % (36-47); Lymphocytes # 1.9 10^3/uL (0.8-4.8); Lymphocytes % 38.1 %; Mean Corpuscular Hemoglobin 26.4 pg (27-33); Mean Corpuscular Volume 85.1 fl (85-98); Mean Platelet Volume 10.3 fL (7.4-10.4); Monocytes # 0.3 10^3/uL (0.2-0.9); Monocytes % 6.2 %; Neutrophils # 2.59 10^3/uL (1.8-7.7); Neutrophils % 51.7 %; Nucleated Red Blood Cells % 0 %; Platelet Count 126 10^3/cmm (157-399); Red Blood Count 4.09 10^6/uL (3.85-5.65); Red Cell Distribution Width 13.2 % (12.1-15.1); White Blood Count 5.01 10^3/uL (3.29-11.43)
[2023-12-21 07:24] VITALS: BP 120/75; PULSE 64; O2SAT 97
[2023-12-21 07:26] LABS: Alanine Aminotransferase 83 U/L (0-33); Alkaline Phosphatase 105 U/L (35-105); Anion Gap 16.8 (5-19); Aspartate Amino Transferase 58 U/L (0-32); Blood Urea Nitrogen 10 mg/dL (6-20); Calcium 8.8 mg/dL (8.5-10.5); Carbon Dioxide 21 mmol/L (22-29); Chloride 105 mmol/L (98-107); Creatinine Clr Calc Pharmacy 183.7594; Globulin 3.2 g/dL (1.3-4.6); Glomerular Filtration Rate 142.1 mL/min (90-130); Glucose 146 mg/dL (65-115); Osmolality Calculated 290 mOsm/kg (285-295); Potassium 3.8 mmol/L (3.5-5.1); Sodium 139 mmol/L (136-145); Total Bilirubin 0.4 mg/dL (0.15-1.2); Total Protein 7.2 g/dL (6.6-8.7)
[2023-12-21 07:35] VITALS: BP 110/62; PULSE 63; O2SAT 96
[2023-12-21 08:14] LABS: Glucose Urine UA Norm (Normal); Protein Urine Neg (Negative); Urine Appearance Slightly Cloudy (CLEAR); Urine Color Yellow (Yellow); pH Urine 5 (5-7)
[2023-12-21 08:15] LABS: Add Urine Microscopic? YES; Bilirubin Urine 1+ (Negative); Blood Urine Neg (Negative); Ketones Urine 1+ (Negative); Leukocyte Esterase Urine Negative (Negative); Nitrate Urine Negative (Negative); RBC Urine 0-4 /hpf (0-2); Urobilinogen Urine Neg (Negative); WBC Urine 0-4 /hpf (0-5)
[2023-12-21 08:16] LABS: Add Urine Culture? No; Bacteria Urine 2+ /hpf; Mucus Urine 3+ /hpf
== END 2023-12-21 08:34 | disposition home or self-care (01) ==
PROVIDERS: Emergency Provider Family Medicine; PCP Physician Assistant
DX: G43.909 Migraine, unspecified, not intractable, without status migrainosus (principal); K76.0 Fatty (change of) liver, not elsewhere classified; Z79.4 Long term (current) use of insulin; Z79.85 Long-term (current) use of injectable non-insulin antidiabetic drugs; Z87.891 Personal history of nicotine dependence; E11.9 Type 2 diabetes mellitus without complications
CPT/HCPCS: 36416; 70450; 80053; 81001; 82962; 85025; 96365; 96375; 99285; J1200; J1885; J2765; J3490

== ENCOUNTER 2024-01-11 21:17 | Emergency (ER) | payer MEDICAID, SELFPAY ==
[2024-01-11 21:32] VITALS: BP 126/88; PULSE 84; RESP 18; TEMP 36.7; O2SAT 98
[2024-01-11 22:37] VITALS: BP 145/66; PULSE 85; O2SAT 97
--- NOTE | 2024-01-11 22:53 | ED_ITS ---
HPI - Allergic Reaction 2 General: Chief complaint: Allergic Reaction Stated complaint: Allergic reaction maybe to busbar Time Seen by Provider: 01/11/24 22:39 Source: patient History of Present Illness: HPI narrative: Patient is a well-appearing 33-year-old female who presents to the ER due to concern for possible allergic reaction. She states that she recently started taking BuSpar 3 days ago and has since noticed raised area on the anterior aspect of bilateral axilla that is a welt like lesion that is pruritic and mildly red. She denies any known bites or injuries. She has taken Benadryl at night which does seem to help the symptoms. Lesions are mildly tender. She denies any other systemic symptoms or complaints. No lip or tongue swelling. No shortness of breath. No nausea vomiting or diarrhea. PFSH ED 2 PFSH: Medical History History of miscarriage Type 2 diabetes mellitus Anxiety with somatization Generalized anxiety disorder Major depressive disorder, recurrent severe without psychotic features Folliculitis COVID-19 Blood type A+ Surgical History No pertinent past surgical history Family History Grandfather Hypertension paternal Diabetes paternal Grandmother Stroke paternal Other Heart disease Denies family history of Colon cancer Ovarian cancer Hypercholesteremia Breast cancer Uterine cancer Thyroid disease Social History Smoking and tobacco/nicotine status: former use of tobacco/nicotine Alcohol intake: former Substance/Drug Use: never Physical Exam 2 Const: COMMON NORMALS: no acute distress and alert GENERAL APPEARANCE: c ooperative ORIENTATION/CONSCIOUSNESS: Yes awake OTHER: Patient is a well-appearing 33-year-old female in no acute distress HENMT: COMMON NORMALS: normocephalic and atraumatic HEAD & SCALP: n ormocephalic and atraumatic MOUTH: Normal oral and palatal mucosa present Eye: COMMON NORMALS: conjunctivae normal CONJUNCTIVA: Yes conjunctivae normal Neck/C-Spine: GENERAL: Yes normal visual inspection Resp: COMMON NORMALS: normal respiratory effort, No retractions and No use of accessory muscles Cardio: COMMON NORMALS: regular rhythm and Peripheral pulses 2+ throughout RHYTHM: regular rhythm PERIPHERAL PULSES: Peripheral pulses 2+ throughout GI: COMMON NORMALS: Soft to palpation and non-tender PALPATION: Yes Soft to palpation Extremity: COMMON NORMALS: full ROM and no pedal edema Neuro: COMMON NORMALS: no focal motor deficits SENSORIUM/ORIENTATION: Yes alert Skin: COMMON NORMALS: no rashes or lesions noted SKIN IMAGES (FEMALE): 1. Erythematous welt like lesion is approximately 2 cm x 3 cm in size with what does appear to be a small bite. No fluctuance or abscess. 2. Similar welt-like lesion, no signific ant redness or warmth. GENERAL SKIN EXAM: no rashes or lesions noted Course 2 Vital Signs: Vital signs: Vital Signs Temperature 98.1 F 01/11/24 21:32 Pulse Rate 84 01/11/24 21:32 Respiratory Rate 18 01/11/24 21:32 Blood Pressure 126/88 01/11/24 21:32 Pulse Oximetry 98 01/11/24 21:32 MDM - Allergic Reaction Medical Decision Making Patient is a nontoxic 33-year-old female who presents due to concern for 2 separate welt like lesions to the anterior aspect of the shoulder/axilla bilaterally. Lesions appear more consistent with some type of insect bite or irritation with a histaminergic reaction. She does not have any other systemic rashes or lesions. No other complaints and she denies any shortness of breath, tongue swelling, lip swelling, or any other allergic symptoms. I think it is unlikely that her BuSpar has caused this but certainly a possibility. I recommended topical hydrocortisone cream and continuation of Benadryl or Zyrtec. I discussed follow-up with her PCP and provided return precautions. No radiology studies performed this visit Discharge Plan Discharge Patient Disposition: Home Clinical Impression: Pruritic rash Condition: Stable Prescriptions: No Action escitalopram oxalate 20 mg tablet 20 mg PO DAILY Trulicity 1.5 mg/0.5 mL pen injector 1.5 mg SUBCUT Q7D Qty: 2 0RF alprazolam 1 mg tablet See Rx Instructions .ROUTE .COMPLEX Rx Instructions: TAKE 0.5MG (1/2 TABLET) BY MOUTH IN THE MORNING AND 1 TABLET AT BEDTIME. Januvia 100 mg tablet 100 mg PO DAILY insulin glargine [Lantus Solostar U-100 Insulin] 100 unit/mL (3 mL) insulin pen 10 unit SUBCUT QAM meloxicam 15 mg tablet 15 mg PO DAILY PRN (Reason: HEADACHE ) Rx Instructions: do not take with ibuprofen or naproxen promethazine 25 mg tablet 25 mg PO Q6H PRN (Reason: headache) Qty: 20 0RF Discharge Orders: Discharge ED (Routine); Ordered 01/11/24 Ordered By: Yury Flynn Referrals: Pricilla Malcolm PA-C [Primary Care Provider] - Patient Instructions: Opioid Safety, Pain Management, Insect Bite or Sting (ED) Activity Restrictions/Additional Instructions: Apply topical hydrocortisone cream to the skin rash 2-3 times daily to help with itching. Continue Benadryl every 6-8 hours or Zyrtec daily to help with itching. Follow-up with your PCP as needed. Return for any concerns. Coding Level of Care Code ED Inspector Receiving for Oskar Jean
[2024-01-11 23:07] VITALS: BP 121/78; PULSE 77; O2SAT 95
== END 2024-01-11 23:20 | disposition home or self-care (01) ==
PROVIDERS: Emergency Provider Student in an Organized Health Care Education/Training Program; PCP Physician Assistant
DX: L29.9 Pruritus, unspecified (principal); Z79.4 Long term (current) use of insulin; Z79.85 Long-term (current) use of injectable non-insulin antidiabetic drugs; Z87.891 Personal history of nicotine dependence; E11.9 Type 2 diabetes mellitus without complications
CPT/HCPCS: 99282

== ENCOUNTER 2024-02-13 18:00 | Emergency (ER) | payer MEDICAID, SELFPAY ==
--- NOTE | 2024-02-13 18:01 | ECG_ITS ---
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 Measurements Intervals [place] Rate: 78 P: 65 ME: 181 QRS: -8 QRSD: 108 T: 45 QT: 404 QTc: 463 Interpretive Statements SINUS RHYTHM WITH SINUS ARRHYTHMIA INTERPRETATION BASED ON A DEFAULT AGE OF 40 YEARS Compared to ECG 07/05/2023 20:27:52 Intraventricular conduction delay no longer present Electronically Signed On 02-13-2024 22:37:23 CDT by Judd Reyes M.D. [id number]
--- NOTE | 2024-02-13 18:07 | XRR_ITS ---
PROCEDURE INFORMATION: Exam: XR Chest Exam date and time: 02/13/2024 6:48 PM Age: 33 years old Clinical indication: Pain; Chest pressure; Additional info: Cp TECHNIQUE: Imaging protocol: Radiologic exam of the chest. Views: 1 view. COMPARISON: CR XR chest 1V portable [id number] 07/05/2023 7:17 PM FINDINGS: Lungs: The lungs are adequately expanded. No focal consolidations or pulmonary edema. Pleural spaces: No pleural effusions or pneumothorax. Heart/Mediastinum: No cardiomegaly. Bones/joints: No acute fractures. XR/XR chest 1V portable [id number] IMPRESSION: No acute pulmonary disease.
[2024-02-13 18:08] VITALS: BP 161/87; PULSE 97; RESP 18; TEMP 36.7; O2SAT 97; BMI 38.7
--- NOTE | 2024-02-13 18:26 | W.ED.CHESTPA ---
HPI - Chest Pain General: Chief Complaint: Chest Pain Stated Complaint: Chest tightness and burning in body Time Seen by Provider: 02/13/24 18:10 Source: patient Mode of arrival: ambulatory Limitations: no limitations History of Present Illness: 33-year-old female states that starting roughly 3 hours ago discharged feeling a burning sensation throughout her body states she started having chest pains feeling very short of breath and having increasing anxiety. States he has a history anxiety she had taken a 0.5 out of Xanax did not work took another 0.5 states when she first arrived here she is feeling extremely anxious she is anxious here as well states that she just feels like she is burning all over. Denies any vomiting or diarrhea. Associated symptoms: Reports dyspnea; Deny abdominal pain, fever(s), nausea or vomiting Related Data Home Medications Medication Instructions Recorded Confirmed escitalopram oxalate 20 mg tablet 20 mg PO DAILY 07/12/22 12/21/23 alprazolam 1 mg tablet See Rx Instructions .Route .COMPLEX 12/21/23 12/21/23 insulin glargine 100 unit/mL (3 10 unit SUBCUT QAM 12/21/23 12/21/23 mL) subcutaneous pen (Lantus Solostar U-100 Insulin) meloxicam 15 mg tablet 15 mg PO DAILY PRN HEADACHE 12/21/23 12/21/23 sitagliptin phosphate 100 mg 100 mg PO DAILY 12/21/23 12/21/23 tablet (Januvia) Previous Rx's Medication Instructions Recorded dulaglutide 1.5 mg/0.5 mL 1.5 mg (0.5 mL) SUBCUT Q7D #2 mL 09/28/23 subcutaneous pen injector ([facility]) promethazine 25 mg tablet 25 mg PO Q6H PRN headache #20 tabs 12/21/23 Allergies Allergy/AdvReac Type Severity Reaction Status Date / Time codeine Allergy Mild hives Verified 01/11/24 21:37 diazepam [From Valium] Allergy Unknown Verified 01/11/24 21:37 sertraline [From Zoloft] Allergy hives Verified 01/11/24 21:37 Review of Systems Const: Denies: fever(s), chills, body aches or change in appetite ENMT: Denies: throat pain or dental pain Card: Reports: chest pain Resp: Reports: dyspnea GI: Denies: abdominal pain, nausea, vomiting or diarrhea Musc: Denies: neck pain or back pain Skin/Breast: Denies: rash Neuro: Denies: headache(s) Psych: Reports: anxiety PFSH ED PFSH: Medical History History of miscarriage Type 2 diabetes mellitus Anxiety with somatization Generalized anxiety disorder Major depressive disorder, recurrent severe without psychotic features Folliculitis COVID-19 Blood type A+ Surgical History No pertinent past surgical history Family History Grandfather Hypertension paternal Diabetes paternal Grandmother Stroke paternal Other Heart disease Denies family history of Colon cancer Ovarian cancer Hypercholesteremia Breast cancer Uterine cancer Thyroid disease Social History Smoking and tobacco/nicotine status: former use of tobacco/nicotine Alcohol intake: former Substance/Drug Use: never Physical Exam Const: COMMON NORMALS: no acute distress, patient oriented x3 and healthy appearing GENERAL APPEARANCE: anxious HENMT: COMMON NORMALS: normocephalic and atraumatic HEAD & SCALP: normocephalic and atraumatic Neck/C-Spine: COMMON NORMALS: full ROM and supple Chest: COMMONS NORMALS: normal inspection of the chest and normal palpation of entire chest wall Resp: COMMON NORMALS: normal respiratory effort, No retractions, No use of accessory muscles and clear to auscultation bilaterally AUSCULTATION: clear to auscultation bilaterally Cardio: COMMON NORMALS: regular rate, regular rhythm and No murmurs present (Cardio) RATE: regular rate RHYTHM: regular rhythm GI: COMMON NORMALS: Normal to inspection, nondistended, normoactive bowel sounds present, Soft to palpation, non-tender and no masses PALPATION: Yes Soft to palpation Extremity: COMMON NORMALS: normal to inspection and full ROM Neuro: COMMON NORMALS: patient oriented x3, moves all extremities and no focal motor deficits Psych: COMMON NORMALS: mental status grossly normal, Normal thought process present and cooperative MOOD & AFFECT: Yes anxious THOUGHT PROCESS: Normal thought process present Skin: COMMON NORMALS: no rashes or lesions noted and no wounds GENERAL SKIN EXAM: no rashes or lesions noted Course Vital Signs: Vital signs: Vital Signs Temperature 98.1 F 02/13/24 18:08 Pulse Rate 97 02/13/24 18:08 Respiratory Rate 16 02/13/24 18:49 Blood Pressure 161/87 02/13/24 18:08 Pulse Oximetry 97 02/13/24 18:08 Oxygen Delivery Me thod Room Air 02/13/24 18:49 MDM - Chest Pain Medical Decision Making Patient presents for chest pain has resolved here after Ativan troponin blood works normal is likely a panic attack patient has no signs of dissection patient is stable for discharge follow-up PCP return if worsening. Medical Records I reviewed the patient's medical records. Lab Data I reviewed the patient's lab results. 02/13/24 18:37 02/13/24 18:37 Radiology Impressions Chest X-Ray 02/13/24 18:07 IMPRESSION: No acute pulmonary disease. Laboratory Results WBC 6.16 10^3/uL (3.29-11.43) 02/13/24 18:37 RBC 4.45 10^6/uL (3.85-5.65) 02/13/24 18:37 Hgb 11.80 g/dL (11.27-16.99) 02/13/24 18:37 Hct 36.5 % (36-47) 02/13/24 18:37 MCV 82.0 fl (85-98) L 02/13/24 18:37 MCH 26.5 pg (27-33) L 02/13/24 18:37 MCHC 32.3 g/dL (30-55) 02/13/24 18:37 RDW 13.6 % (12.1-15.1) 02/13/24 18:37 Plt Count 180 10^3/cmm (157-399) 02/13/24 18:37 MPV 10.2 fL (7.4-10.4) 02/13/24 18:37 Neut % (Auto) 66.0 % 02/13/24 18:37 Lymph % (Auto) 25.8 % 02/13/24 18:37 [place] % (Auto) 5.0 % 02/13/24 18:37 Eos % (Auto) 2.4 % 02/13/24 18:37 Baso % (Auto) 0.5 % 02/13/24 18:37 Neut # (Auto) 4.06 10^3/uL (1.8-7.7) 02/13/24 18:37 Lymph # (Auto) 1.6 10^3/uL (0.8-4.8) 02/13/24 18:37 [place] # (Auto) 0.3 10^3/uL (0.2-0.9) 02/13/24 18:37 Eos # (Auto) 0.2 10^3/uL (0.0-0.8) 02/13/24 18:37 Baso # (Auto) 0.0 10^3/uL (0.0-0.1) 02/13/24 18:37 Nucleated RBC % (auto) 0 % 02/13/24 18:37 Nucleated RBCs # 0.0 /100WBC 02/13/24 18:37 PT 13.80 SECONDS (12.1-14.9) 02/13/24 18:37 INR 1.03 (0.8-1.2) 02/13/24 18:37 Sodium 139 mmol/L (136-145) 02/13/24 18:37 Potassium 4.1 mmol/L (3.5-5.1) 02/13/24 18:37 Chloride 101 mmol/L (98-107) 02/13/24 18:37 Carbon Dioxide 23 mmol/L (22-29) 02/13/24 18:37 Anion Gap 19.1 (5-19) H 02/13/24 18:37 BUN 7 mg/dL (6-20) 02/13/24 18:37 Creatinine 0.6 mg/dL (0.5-0.9) 02/13/24 18:37 GFR Calculation 115.1 mL/min (90-130) 02/13/24 18:37 Glucose 192 mg/dL (65-115) H 02/13/24 18:37 Calculated Osmolality 291 mOsm/kg (285-295) 02/13/24 18:37 Calcium 9.8 mg/dL (8.5-10.5) 02/13/24 18:37 Total Bilirubin 0.3 mg/dL (0.15-1.2) 02/13/24 18:37 AST 91 U/L (0-32) H 02/13/24 18:37 ALT 116 U/L (0-33) H 02/13/24 18:37 Alkaline Phosphatase 133 U/L (35-105) H 02/13/24 18:37 Troponin T Baseline < 6 ng/L (0-10) 02/13/24 18:37 Total Protein 8.4 g/dL (6.6-8.7) 02/13/24 18:37 Albumin 5.0 g/dL (3.5-5.2) 02/13/24 18:37 Globulin 3.4 g/dL (1.3-4.6) 02/13/24 18:37 Lipase 34 U/L (13-60) 02/13/24 18:37 HCG, Qual Negative (Negative) 02/13/24 18:37 All radiology interpretation(s) finalized by discharge EKG Data EKG 1: I personally reviewed and interpreted this EKG as follows: EKG interpretation date: 02/13/24 EKG interpretation time: 18:01 Interpretation: nsr hr [address] elevation qrs 108 qtc 438 Discharge Plan Discharge Patient Disposition: Home Clinical Impression: Chest pain, Anxiety Condition: Stable Prescriptions: No Action escitalopram oxalate 20 mg tablet 20 mg PO DAILY Trulicity 1.5 mg/0.5 mL pen injector 1.5 mg SUBCUT Q7D Qty: 2 0RF alprazolam 1 mg tablet See Rx Instructions .ROUTE .COMPLEX Rx Instructions: TAKE 0.5MG (1/2 TABLET) BY MOUTH IN THE MORNING AND 1 TABLET AT BEDTIME. Januvia 100 mg tablet 100 mg PO DAILY insulin glargine [Lantus Solostar U-100 Insulin] 100 unit/mL (3 mL) insulin pen 10 unit SUBCUT QAM meloxicam 15 mg tablet 15 mg PO DAILY PRN (Reason: HEADACHE ) Rx Instructions: do not take with ibuprofen or naproxen promethazine 25 mg tablet 25 mg PO Q6H PRN (Reason: headache) Qty: 20 0RF Discharge Orders: Discharge ED (Routine); Ordered 02/13/24 Ordered By: Jude Hendricks Referrals: Pricilla Malcolm PA-C [Primary Care Provider] - 4-7 days Discharge Diet: Advance as tolerated Discharge Activity: Resume usual activity Patient Instructions: Chest Pain (ED), Anxiety (ED) Coding Level of Care Code ED Electric Range Preparer for Oskar Jean
[2024-02-13 18:46] LABS: Basophils % 0.5 %; Eosinophils # 0.2 10^3/uL (0.0-0.8); Eosinophils % 2.4 %; Hematocrit 36.5 % (36-47); Lymphocytes # 1.6 10^3/uL (0.8-4.8); Lymphocytes % 25.8 %; Mean Corpuscular HGB Conc 32.3 g/dL (30-55); Mean Corpuscular Hemoglobin 26.5 pg (27-33); Mean Platelet Volume 10.2 fL (7.4-10.4); Monocytes # 0.3 10^3/uL (0.2-0.9); Neutrophils # 4.06 10^3/uL (1.8-7.7); Nucleated Red Blood Cells % 0 %; Platelet Count 180 10^3/cmm (157-399); Red Blood Count 4.45 10^6/uL (3.85-5.65); Red Cell Distribution Width 13.6 % (12.1-15.1); White Blood Count 6.16 10^3/uL (3.29-11.43)
[2024-02-13] MEDS: LORazepam 2 mg/mL INJ 1 mL 1 MG IVP (18:47)
[2024-02-13 18:49] VITALS: RESP 16
[2024-02-13 18:55] LABS: HCG, Serum Qual Negative (Negative)
[2024-02-13 18:59] LABS: INR 1.03 (0.8-1.2)
[2024-02-13 19:04] LABS: Troponin(5th) Baseline < 6 ng/L (0-10)
[2024-02-13 19:05] LABS: Alanine Aminotransferase 116 U/L (0-33); Alkaline Phosphatase 133 U/L (35-105); Anion Gap 19.1 (5-19); Aspartate Amino Transferase 91 U/L (0-32); Blood Urea Nitrogen 7 mg/dL (6-20); Calcium 9.8 mg/dL (8.5-10.5); Carbon Dioxide 23 mmol/L (22-29); Chloride 101 mmol/L (98-107); Globulin 3.4 g/dL (1.3-4.6); Glomerular Filtration Rate 115.1 mL/min (90-130); Glucose 192 mg/dL (65-115); Lipase 34 U/L (13-60); Osmolality Calculated 291 mOsm/kg (285-295); Potassium 4.1 mmol/L (3.5-5.1); Sodium 139 mmol/L (136-145); Total Bilirubin 0.3 mg/dL (0.15-1.2); Total Protein 8.4 g/dL (6.6-8.7)
[2024-02-13 19:47] VITALS: BP 134/87; PULSE 81; RESP 16; O2SAT 98
== END 2024-02-13 19:49 | disposition home or self-care (01) ==
PROVIDERS: Emergency Provider Emergency Medicine; PCP Physician Assistant
DX: R07.9 Chest pain, unspecified (principal); F41.9 Anxiety disorder, unspecified; Z79.85 Long-term (current) use of injectable non-insulin antidiabetic drugs; Z79.4 Long term (current) use of insulin; Z87.891 Personal history of nicotine dependence; E11.9 Type 2 diabetes mellitus without complications
CPT/HCPCS: 71045; 80053; 83690; 84484; 84703; 85025; 85610; 93005; 96374; 99285; J2060

== ENCOUNTER 2024-06-10 18:06 | Emergency (ER) | payer MEDICAID, SELFPAY ==
[2024-06-10 18:33] VITALS: BP 129/82; PULSE 80; TEMP 37; O2SAT 100; BMI 39.4
[2024-06-10 19:08] VITALS: BP 130/75; PULSE 83; O2SAT 99
--- NOTE | 2024-06-10 19:24 | USR_ITS ---
PROCEDURE INFORMATION: Exam: US , Limited Exam date and time: 06/10/2024 7:36 PM Age: 34 years old Clinical indication: complicated by abdominal or pelvic pain; Right lower quadrant; Second trimester (14 weeks 0 days to 27 weeks 6 days); Gestational age or lmp: 16w 4d by lmp; ; Additional info: 16 weeks gestation, low abdominal pain LABS AND CLINICAL REPORTS: Last menstrual period start date: 02/15/2024 Gestational age (Established): 16 w 4 d Estimated due date (Established): 11/21/2024 TECHNIQUE: Imaging protocol: Real-time ultrasound of the maternal uterus with image documentation. Exam focused on the clinical indication. COMPARISON: US gall bladder [id number] 07/05/2023 8:48 PM FINDINGS: Gestation: Single viable IUP. heart rate: 148 bpm presentation and position: Breech Placenta: Posterior and Right grade 0 placenta without previa. Amniotic fluid (Qualitative): Amniotic fluid volume is normal. Amniotic fluid index: TAD is 14.12 cm. ANATOMY: midline falx: midline falx is normal. cerebellum: cerebellum is normal. lateral ventricles: lateral ventricles are normal. cisterna magna: cisterna magna is normal. choroid plexus: choroid plexus is normal. stomach: stomach is normal. urinary bladder: bladder is normal. lower limbs: legs and feet: No visualized abnormalities of legs/feet. upper limbs: arms and hands: No visualized abnormalities of arms/hands. BIOMETRY: Gestational age (AUA): 17 w 0 d Estimated due date (AUA): 11/18/2024 Estimated weight: 189 g. EFW by AC, BPD, FL, HC, [place] 1985 87 percentile Biparietal diameter (BPD): 3.43 cm. EGA (BPD) is 16 w 4 d. 49.1 % percentile Head circumference (HC): 13.5 cm. EGA (HC) is 17 w 0 d. 61.3 % percentile Abdominal circumference (AC): 12.4 cm. EGA (AC) is 18 w 0 d. 90.5 % percentile Femur length (FL): 2.21 cm. EGA (FL) is 16 w 4 d. 47.1 % percentile HC/AC: 1.09. (Normal range: 1.07 - 1.29) FL/HC: 16.37. (Normal range: 14.6 - 17.6) FL/BPD: 64.43 FL/AC: 17.82 MATERNAL: Uterus: Uterus measures 17.61 cm x 11.34 cm x 9.65 cm. Cervix: Cervical length measures 4 cm. Right ovary/adnexa: Right ovary measures 3.1 cm x 2.7 cm x 2.4 cm. Right ovarian volume is 10.8 mL. Left ovary/adnexa: Left ovary measures 3.5 cm x 1.9 cm x 2.7 cm. Left ovarian volume is 9.5 mL. US/US OB limited [id number] IMPRESSION: Unremarkable viable IUP at 17 weeks
[2024-06-10 20:00] VITALS: BP 111/69; PULSE 81; O2SAT 96
--- NOTE | 2024-06-10 20:03 | W.ED.ABDPA2 ---
HPI - Abdominal Pain General: Chief Complaint: Abdominal Pain Stated Complaint: 17 Week Preg\Pain Time Seen by Provider: 06/10/24 19:19 History of Present Illness: Patient presents with abdominal pain that radiates to her back low flank region it all started this morning. It comes and goes. She is about 17 weeks . Denies any bowel or bladder, nausea vomiting diarrhea type issues any vaginal bleeding, patient is G7, P5. Related Data Home Medications Medication Instructions Recorded Confirmed escitalopram oxalate 20 mg tablet 20 mg PO DAILY 07/12/22 12/21/23 alprazolam 1 mg tablet See Rx Instructions .Route .COMPLEX 12/21/23 12/21/23 insulin glargine 100 unit/mL (3 10 unit SUBCUT QAM 12/21/23 12/21/23 mL) subcutaneous pen (Lantus Solostar U-100 Insulin) meloxicam 15 mg tablet 15 mg PO DAILY PRN HEADACHE 12/21/23 12/21/23 sitagliptin phosphate 100 mg 100 mg PO DAILY 12/21/23 12/21/23 tablet (Januvia) Previous Rx's Medication Instructions Recorded dulaglutide 1.5 mg/0.5 mL 1.5 mg (0.5 mL) SUBCUT Q7D #2 mL 09/28/23 subcutaneous pen injector (Trulicuc [facility]) promethazine 25 mg tablet 25 mg PO Q6H PRN headache #20 tabs 12/21/23 Allergies Allergy/AdvReac Type Severity Reaction Status Date / Time codeine Allergy Mild hives Verified 06/10/24 18:39 diazepam [From Valium] Allergy Unknown Verified 06/10/24 18:39 sertraline [From Zoloft] Allergy hives Verified 06/10/24 18:39 PFS ED PFSH: Medical History History of miscarriage Type 2 diabetes mellitus Anxiety with somatization Generalized anxiety disorder Major depressive disorder, recurrent severe without psychotic features Folliculitis COVID-19 Blood type A+ Surgical History No pertinent past surgical history Family History Grandfather Hypertension paternal Diabetes paternal Grandmother Stroke paternal Other Heart disease Denies family history of Colon cancer Ovarian cancer Hypercholesteremia Breast cancer Uterine cancer Thyroid disease Social History Smoking and tobacco/nicotine status: former use of tobacco/nicotine Alcohol intake: former Substance/Drug Use: never Female Reproductive History: : 7 Physical Exam Const: COMMON NORMALS: no acute distress, average body habitus, patient oriented x3, no limitations, healthy appearing, alert and well nourished HENMT: COMMON NORMALS: normocephalic, atraumatic, hearing grossly normal bilaterally, external ears normal, Normal external nose present and moist oral mucous membranes HEAD & SCALP: normocephalic and atraumatic NOSE: Normal external nose present EXTERNAL EAR: Yes external ears normal Neck/C-Spine: COMMON NORMALS: no JVD Chest: COMMONS NORMALS: normal inspection of the chest and normal palpation of entire chest wall Resp: COMMON NORMALS: normal respiratory effort, No retractions, No use of accessory muscles and clear to auscultation bilaterally AUSCULTATION: clear to auscultation bilaterally Cardio: COMMON NORMALS: no JVD, regular rate, regular rhythm, S1 normal heart sound present, S2 normal heart sound present, No gallops present (Cardio), No clicks present (Cardio), No murmurs present (Cardio) and No rub (Cardio) RATE: regular rate RHYTHM: regular rhythm HEART SOUNDS: S1 normal heart sound present and S2 normal heart sound present GI: COMMON NORMALS: Normal to inspection, nondistended, normoactive bowel sounds present, Soft to palpation, non-tender, No hepatosplenomegaly present and no masses PALPATION: Yes Soft to palpation and Yes No hepatosplenomegaly present Neuro: COMMON NORMALS: patient oriented x3 SENSORIUM/ORIENTATION: Yes alert Course Vital Signs: Vital signs: Vital Signs Temperature 98.6 F 06/10/24 18:33 Pulse Rate 80 06/10/24 20:50 Blood Pressure 111/69 06/10/24 20:00 Pulse Oximetry 98 06/10/24 20:50 Oxygen Delivery Me thod Room Air 06/10/24 20:50 MDM - Abdominal Pain Medical Decision Making Lab work, urinalysis, ultrasound all unremarkable. These results was discussed with the patient. 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 Lab Data I reviewed the patient's lab results. 06/10/24 21:01 06/10/24 20:04 Labs/Radiology: Radiology Impressions Obstetrics Ultrasound 06/10/24 19:24 IMPRESSION: Unremarkable viable IUP at 17 weeks Laboratory Results WBC 6.48 10^3/uL (3.29-11.43) 06/10/24 21:01 Corrected WBC Cancelled 06/10/24 20:04 RBC 3.65 10^6/uL (3.85-5.65) L 06/10/24 21:01 Hgb 9.70 g/dL (11.27-16.99) L 06/10/24 21:01 Hct 31.2 % (36-47) L 06/10/24 21:01 MCV 85.5 fl (85-98) 06/10/24 21:01 MCH 26.6 pg (27-33) L 06/10/24 21:01 MCHC 31.1 g/dL (30-55) 06/10/24 21:01 RDW 14.4 % (12.1-15.1) 06/10/24 21:01 Plt Count 155 10^3/cmm (157-399) L 06/10/24 21:01 MPV 9.8 fL (7.4-10.4) 06/10/24 21:01 Gran % Cancelled 06/10/24 20:04 Neut % (Auto) 59.9 % 06/10/24 21:01 Lymph % (Auto) 30.9 % 06/10/24 21:01 [place] % (Auto) 6.2 % 06/10/24 21:01 Eos % (Auto) 2.3 % 06/10/24 21:01 Baso % (Auto) 0.2 % 06/10/24 21:01 Neut # (Auto) 3.89 10^3/uL (1.8-7.7) 06/10/24 21:01 Lymph # (Auto) 2.0 10^3/uL (0.8-4.8) 06/10/24 21:01 [place] # (Auto) 0.4 10^3/uL (0.2-0.9) 06/10/24 21:01 Eos # (Auto) 0.2 10^3/uL (0.0-0.8) 06/10/24 21:01 Baso # (Auto) 0.0 10^3/uL (0.0-0.1) 06/10/24 21:01 Absolute Gran (auto) Cancelled 06/10/24 20:04 Nucleated RBC % (auto) 0 % 06/10/24 21:01 Nucleated RBCs # 0.0 /100WBC 06/10/24 21:01 Sodium 134 mmol/L (136-145) L 06/10/24 20:04 Potassium 3.4 mmol/L (3.5-5.1) L 06/10/24 20:04 Chloride 102 mmol/L (98-107) 06/10/24 20:04 Carbon Dioxide 21 mmol/L (22-29) L 06/10/24 20:04 Anion Gap 14.4 (5-19) 06/10/24 20:04 BUN 4 mg/dL (6-20) L 06/10/24 20:04 Creatinine 0.3 mg/dL (0.5-0.9) L 06/10/24 20:04 GFR Calculation 254.7 mL/min (90-130) H 06/10/24 20:04 Glucose 120 mg/dL (65-115) H 06/10/24 20:04 Calculated Osmolality 276 mOsm/kg (285-295) L 06/10/24 20:04 Calcium 9.5 mg/dL (8.5-10.5) 06/10/24 20:04 Total Bilirubin 0.3 mg/dL (0.15-1.2) 06/10/24 20:04 AST 40 U/L (0-32) H 06/10/24 20:04 ALT 45 U/L (0-33) H 06/10/24 20:04 Alkaline Phosphatase 112 U/L (35-105) H 06/10/24 20:04 Total Protein 7.4 g/dL (6.6-8.7) 06/10/24 20:04 Albumin 3.8 g/dL (3.5-5.2) 06/10/24 20:04 Globulin 3.6 g/dL (1.3-4.6) 06/10/24 20:04 Lipase 51 U/L (13-60) 06/10/24 20:04 Urine Color Yellow (Yellow) 06/10/24 20:09 Urine Appearance Clear (CLEAR) 06/10/24 20:09 Urine pH 6.5 (5-7) 06/10/24 20:09 Ur Specific [place] 1.012 (1.005-1.030) 06/10/24 20:09 Urine Protein Negative (Negative) 06/10/24 20:09 Urine Glucose (UA) Negative (Normal) 06/10/24 20:09 Urine Ketones Negative (Negative) 06/10/24 20:09 Urine Blood Negative (Negative) 06/10/24 20:09 Urine Nitrate Negative (Negative) 06/10/24 20:09 Urine Bilirubin Negative (Negative) 06/10/24 20:09 Urine Urobilinogen 1.0 mg/dL (Negative) 06/10/24 20:09 Ur Leukocyte Esterase Negative (Negative) 06/10/24 20:09 Urine RBC 0-2 /hpf (0-2) 06/10/24 20:09 Urine WBC 0-5 /hpf (0-5) 06/10/24 20:09 Ur Squamous Epith Cells 6-10 /hpf (0-5) 06/10/24 20:09 Amorphous Sediment Not Reportable 06/10/24 20:09 Urine Bacteria 1+ /hpf (NONE) H 06/10/24 20:09 Hyaline Casts 0-4 /lpf H 06/10/24 20:09 All radiology interpretation(s) finalized by discharge Discharge Plan Discharge Patient Disposition: Home Clinical Impression: Abdominal pain during Qualifiers: Trimester: second trimester Qualified Code(s): O26.892 - Other specified related conditions, second trimester Condition: Stable Prescriptions: No Action escitalopram oxalate 20 mg tablet 20 mg PO DAILY Trulicity 1.5 mg/0.5 mL pen injector 1.5 mg SUBCUT Q7D Qty: 2 0RF alprazolam 1 mg tablet See Rx Instructions .ROUTE .COMPLEX Rx Instructions: TAKE 0.5MG (1/2 TABLET) BY MOUTH IN THE MORNING AND 1 TABLET AT BEDTIME. Januvia 100 mg tablet 100 mg PO DAILY insulin glargine [Lantus Solostar U-100 Insulin] 100 unit/mL (3 mL) insulin pen 10 unit SUBCUT QAM meloxicam 15 mg tablet 15 mg PO DAILY PRN (Reason: HEADACHE ) Rx Instructions: do not take with ibuprofen or naproxen promethazine 25 mg tablet 25 mg PO Q6H PRN (Reason: headache) Qty: 20 0RF Discharge Orders: Discharge ED (Routine); Ordered 06/10/24 Ordered By: Kenji Mendieta Patient Instructions: Abdominal Pain (ED) Activity Restrictions/Additional Instructions: Your evaluation in the ER that included blood and urinalysis, and ultrasound all were essentially unremarkable. They did show you have lots of gas in your abdomen which may be causing your pain. Growing pains of may be causing her pain also. Please follow-up with your high school band director doctor in [place] on your previously scheduled appointment on June 13. Coding Level of Care Code ED Boy'S Adviser for Oskar Jean
[2024-06-10 20:20] LABS: Bilirubin Urine Negative (Negative); Blood Urine Negative (Negative); Glucose Urine UA Negative (Normal); Ketones Urine Negative (Negative); Leukocyte Esterase Urine Negative (Negative); Nitrate Urine Negative (Negative); Protein Urine Negative (Negative); Specific Gravity, Urine 1.012 (1.005-1.030); Urine Appearance Clear (CLEAR); Urine Color Yellow (Yellow); pH Urine 6.5 (5-7)
[2024-06-10 20:25] LABS: Add Urine Microscopic? YES; Bacteria Urine 1+ /hpf; Hyaline Casts Urine 0-4 /lpf; RBC Urine 0-2 /hpf (0-2); WBC Urine 0-5 /hpf (0-5)
[2024-06-10 20:35] LABS: Alanine Aminotransferase 45 U/L (0-33); Albumin Level 3.8 g/dL (3.5-5.2); Alkaline Phosphatase 112 U/L (35-105); Anion Gap 14.4 (5-19); Aspartate Amino Transferase 40 U/L (0-32); Blood Urea Nitrogen 4 mg/dL (6-20); Calcium 9.5 mg/dL (8.5-10.5); Carbon Dioxide 21 mmol/L (22-29); Chloride 102 mmol/L (98-107); Creatinine Clr Calc Pharmacy 310.9718; Globulin 3.6 g/dL (1.3-4.6); Glomerular Filtration Rate 254.7 mL/min (90-130); Glucose 120 mg/dL (65-115); Lipase 51 U/L (13-60); Osmolality Calculated 276 mOsm/kg (285-295); Potassium 3.4 mmol/L (3.5-5.1); Sodium 134 mmol/L (136-145); Total Bilirubin 0.3 mg/dL (0.15-1.2); Total Protein 7.4 g/dL (6.6-8.7)
[2024-06-10 20:50] VITALS: PULSE 80; O2SAT 98
[2024-06-10 21:13] LABS: Basophils % 0.2 %; Eosinophils # 0.2 10^3/uL (0.0-0.8); Eosinophils % 2.3 %; Hematocrit 31.2 % (36-47); Lymphocytes % 30.9 %; Mean Corpuscular HGB Conc 31.1 g/dL (30-55); Mean Corpuscular Hemoglobin 26.6 pg (27-33); Mean Corpuscular Volume 85.5 fl (85-98); Mean Platelet Volume 9.8 fL (7.4-10.4); Monocytes # 0.4 10^3/uL (0.2-0.9); Monocytes % 6.2 %; Neutrophils # 3.89 10^3/uL (1.8-7.7); Neutrophils % 59.9 %; Nucleated Red Blood Cells % 0 %; Platelet Count 155 10^3/cmm (157-399); Red Blood Count 3.65 10^6/uL (3.85-5.65); Red Cell Distribution Width 14.4 % (12.1-15.1); White Blood Count 6.48 10^3/uL (3.29-11.43)
[2024-06-10 22:06] VITALS: BP 126/71; PULSE 80; O2SAT 98
== END 2024-06-10 22:07 | disposition home or self-care (01) ==
PROVIDERS: Emergency Provider Emergency Medicine
DX: O26.892 Other specified pregnancy related conditions, second trimester (principal); Z3A.17 17 weeks gestation of pregnancy; Z87.891 Personal history of nicotine dependence; E11.9 Type 2 diabetes mellitus without complications; Z79.85 Long-term (current) use of injectable non-insulin antidiabetic drugs
CPT/HCPCS: 36415; 76815; 80053; 81001; 83690; 85025; 99284

== ENCOUNTER 2024-07-03 04:31 | Emergency (ER) | payer MEDICAID, SELFPAY ==
[2024-07-03 04:35] VITALS: BP 129/77; PULSE 71; RESP 20; O2SAT 99; BMI 39.4
--- NOTE | 2024-07-03 04:44 | ECG_ITS ---
[facility]: 2024-[facility]-03 Pat Name: Ana Cardona Department: Room: Gender: Female Lean Specialist: : 1990 Requested By: Kajal Hong Order Number: [id number] Pena MD: Matt Rosales M.D. Measurements Intervals [place] Rate: 73 P: 50 [place]: 182 QRS: -4 QRSD: 97 T: 21 QT: 431 QTc: 475 Interpretive Statements SINUS RHYTHM MINIMAL VOLTAGE CRITERIA FOR LVH, CONSIDER NORMAL VARIANT [MEETS CRITERIA IN ONE OF: R(aVL), S(V1), R(V5), R(V5/V6)+S(V1)] Compared to ECG 02/13/2024 18:01:14 Sinus arrhythmia no longer present Electronically Signed On 07-04-2024 09:03:52 CERTIFIED GENETIC COUNSELOR by Matt Rosales M.D. [email or web address]
[2024-07-03 04:52] VITALS: BP 129/77; PULSE 75; RESP 17; O2SAT 99
[2024-07-03 04:55] LABS: Glucose Point of Care 82 mg/dL (70-110)
--- NOTE | 2024-07-03 05:01 | ED_ITS ---
HPI - SOB/Dyspnea General: Chief Complaint: Shortness of Breath/Dyspnea Stated Complaint: SOB Time Seen by Provider: 07/03/24 04:48 History of Present Illness: HPI Narrative: 34-year-old female with history of anxie ty who is 19 weeks who presents emergency room with shortness of breath. She said she woke up during the night with shortness of breath. She says she does have some anxiety but this seems worse than usual. No calf pain or leg swelling. No vaginal bleeding. No vaginal discharge. Related Data Home Medications Medication Instructions Recorded Confirmed escitalopram oxalate 20 mg tablet 20 mg PO DAILY 07/12/22 12/21/23 alprazolam 1 mg tablet See Rx Instructions .Route .COMPLEX 12/21/23 12/21/23 insulin glargine 100 unit/mL (3 10 unit SUBCUT QAM 12/21/23 12/21/23 mL) subcutaneous pen (Lantus Solostar U-100 Insulin) meloxicam 15 mg tablet 15 mg PO DAILY PRN HEADACHE 12/21/23 12/21/23 sitagliptin phosphate 100 mg 100 mg PO DAILY 12/21/23 12/21/23 tablet (Januvia) Previous Rx's Medication Instructions Recorded dulaglutide 1.5 mg/0.5 mL 1.5 mg (0.5 mL) SUBCUT Q7D #2 mL 09/28/23 subcutaneous pen injector (Trulicity) promethazine 25 mg tablet 25 mg PO Q6H PRN headache #20 tabs 12/21/23 albuterol sulfate 90 mcg/actuation 2 inh inhalation Q4H PRN shortness 07/03/24 aerosol inhaler of breath or wheezing #6.7 grams cephalexin 500 mg tablet 500 mg PO TID 5 days #15 tabs 07/03/24 dexamethasone 6 mg tablet 6 mg PO DAILY 5 days #5 tabs 07/03/24 Allergies Allergy/AdvReac Type Severity Reaction Status Date / Time codeine Allergy Mild hives Verified 07/03/24 04:39 diazepam [From Valium] Allergy Unknown Verified 07/03/24 04:39 sertraline [From Zoloft] Allergy hives Verified 07/03/24 04:39 Review of Systems Narrative: Constitutional symptoms: Negative except as documented in HPI. Skin symptoms: Negative except as documented in HPI. Eye symptoms: Negative except as documented in HPI. ENMT symptoms: Negative except as documented in HPI. Respiratory symptoms: Negative except as documented in HPI. Cardiovascular symptoms: Negative except as documented in HPI. Gastrointestinal symptoms: Negative except as documented in HPI. Genitourinary symptoms: Negative except as documented in HPI. Musculoskeletal symptoms: Negative except as documented in HPI. Neurologic symptoms: Negative except as documented in HPI. Psychiatric symptoms: Negative except as documented in HPI. Endocrine symptoms: Negative except as documented in HPI. PFSH ED PFSH: Medical History History of miscarriage Type 2 diabetes mellitus Anxiety with somatization Generalized anxiety disorder Major depressive disorder, recurrent severe without psychotic features Folliculitis COVID-19 Blood type A+ Surgical History No pertinent past surgical history Family History Grandfather Hypertension paternal Diabetes paternal Grandmother Stroke paternal Other Heart disease Denies family history of Colon cancer Ovarian cancer Hypercholesteremia Breast cancer Uterine cancer Thyroid disease Social History Smoking and tobacco/nicotine status: former use of tobacco/nicotine Alcohol intake: former Substance/Drug Use: never Physical Exam Narrative: EXAM NARRATIVE: General: Alert, no acute distress. Skin: Warm, dry. Head: Normocephalic, atraumatic. Neck: Supple, trachea midline. Eye: Extraocular movements are intact. Ears, nose, mouth and throat: mucosa moist. Cardiovascular: Regular, Normal peripheral perfusion. Respiratory: Some very mild wheeze, respirations are non-labored, breath sounds are equal, Symmetrical chest wall expansion. Gastrointestinal: Soft, Nontender, gravid Musculoskeletal: Normal ROM, no deformity. Neurological: Alert and oriented, No focal neurological deficit observed. Psychiatric: Cooperative, appropriate mood & affect. Course Vital Signs: Vital signs: Vital Signs Pulse Rate 80 07/03/24 05:21 Respiratory Rate 13 07/03/24 05:19 Blood Pressure 129/77 07/03/24 05:19 Pulse Oximetry 99 07/03/24 05:19 Oxygen Delivery Me thod Room Air 07/03/24 05:13 MDM - SOB/Dyspnea Medical Decision Making EKG: Time 444. Rate 73. Normal sinus rhythm, No ST-T changes, no ectopy, normal MI & QRS intervals, This was reviewed and interpreted by myself the ER physician at 4:50 AM heart tones 143. Assessment and plan: Dyspnea ? Albuterol and Decadron in the emergency room. - Discharged home - Discussed plan with patient. Answered any questions. - Evaluation and treatment of this problem were appropriate in the emergency setting. Lab Data Labs/Radiology: Laboratory Results POC Glucose 82 mg/dL (70-110) 07/03/24 04:51 No radiology studies performed this visit Discharge Plan Discharge Patient Disposition: Home Clinical Impression: Shortness of breath, Condition: Stable Prescriptions: New dexamethasone 6 mg tablet 6 mg PO DAILY 5 Days Qty: 5 0RF cephalexin 500 mg tablet 500 mg PO TID 5 Days Qty: 15 0RF albuterol sulfate 90 mcg/actuation HFA aerosol inhaler 2 inh inhalation Q4H PRN (Reason: shortness of breath or wheezing) Qty: 6.7 0RF Rx Instructions: Please provide patient with a spacer No Action escitalopram oxalate 20 mg tablet 20 mg PO DAILY Trulicity 1.5 mg/0.5 mL pen injector 1.5 mg SUBCUT Q7D Qty: 2 0RF alprazolam 1 mg tablet See Rx Instructions .ROUTE .COMPLEX Rx Instructions: TAKE 0.5MG (1/2 TABLET) BY MOUTH IN THE MORNING AND 1 TABLET AT BEDTIME. Januvia 100 mg tablet 100 mg PO DAILY insulin glargine [Lantus Solostar U-100 Insulin] 100 unit/mL (3 mL) insulin pen 10 unit SUBCUT QAM meloxicam 15 mg tablet 15 mg PO DAILY PRN (Reason: HEADACHE ) Rx Instructions: do not take with ibuprofen or naproxen promethazine 25 mg tablet 25 mg PO Q6H PRN (Reason: headache) Qty: 20 0RF Discharge Orders: Discharge ED (Routine); Ordered 07/03/24 Ordered By: Kajal Remy Discharge Diet: Usual diet Discharge Activity: Increase activity as tolerated Patient Instructions: How to Use a Metered-Dose Inhaler and a Spacer (ED), Opioid Safety, Pain Management Activity Restrictions/Additional Instructions: Thank you for choosing [facility] for your healthcare needs today. Please realize this is an emergency room and that we are providing you with a medical screening exam and this may not be complete and all inclusive of all the testing and or work up that you may need to determine your ailment or severity of your illness. You have been screened and evaluated and felt safe for discharge. Health conditions do change or evolve sometimes and as such it is important that you follow up with your Primary Doctor to be re checked, 3-5 days is a general good time frame for follow up. You are always welcome to return to the ED for re assessment if your symptoms are worsening or you have new concerns Coding Level of Care Code ED Heating And Ventilating Tender for Oskar Jean
[2024-07-03] MEDS: dexamethasone 10 mg/mL INJ IM (05:10)
[2024-07-03 05:13] VITALS: PULSE 78; RESP 18; O2SAT 99
[2024-07-03] MEDS: albuterol 2.5 mg/3 mL Neb INHALATION (05:13)
[2024-07-03 05:19] VITALS: BP 129/77; PULSE 77; RESP 13; O2SAT 99
--- NOTE | 2024-07-03 05:20 | PC.NURSE ---
DOPPLERED FHT'S. DOPPLER READ 143.
[2024-07-03 05:21] VITALS: PULSE 80
[2024-07-03 05:39] VITALS: BP 129/77; PULSE 86; RESP 16; O2SAT 99
[2024-07-03 07:13] LABS: Adenovirus Not Detected (NOT DETECT); Chlamydia Pneumoniae Not Detected (NOT DETECT); Coronavirus 229E,HKU1,NL63,OC4 Not Detected (NOT DETECT); Human Metapneumovirus Not Detected (NOT DETECT); Human Rhinovirus/Enterovirus Not Detected (NOT DETECT); Influenza A Not Detected (NOT DETECT); Influenza A H1 Not Detected (NOT DETECT); Influenza A H1-2009 Not Detected (NOT DETECT); Influenza A H3 Not Detected (NOT DETECT); Influenza B Not Detected (NOT DETECT); Mycoplasma Pneumoniae Not Detected (NOT DETECT); Parainfluenza Virus Type 1 Not Detected (NOT DETECT); Parainfluenza Virus Type 2 Not Detected (NOT DETECT); Parainfluenza Virus Type 3 Not Detected (NOT DETECT); Parainfluenza Virus Type 4 Not Detected (NOT DETECT); Respiratory Syncytial Virus A Not Detected (NOT DETECT); Respiratory Syncytial Virus B Not Detected (NOT DETECT); SARS-COV-2 Not Detected (NOT DETECT)
== END 2024-07-03 05:40 | disposition home or self-care (01) ==
PROVIDERS: Emergency Provider Emergency Medicine
DX: R06.02 Shortness of breath (principal); Z3A.19 19 weeks gestation of pregnancy; E11.9 Type 2 diabetes mellitus without complications; Z87.891 Personal history of nicotine dependence; Z79.4 Long term (current) use of insulin; Z79.85 Long-term (current) use of injectable non-insulin antidiabetic drugs
CPT/HCPCS: 36416; 82962; 87486; 87581; 87633; 93005; 94640; 96372; 99284; J1100; J7613

== ENCOUNTER 2024-07-20 20:27 | Emergency (ER) | payer MEDICAID, SELFPAY ==
[2024-07-20 20:38] VITALS: BP 128/68; PULSE 90; RESP 17; TEMP 36.8; O2SAT 99; BMI 39.4
[2024-07-20 22:12] LABS: Basophils % 0.3 %; Eosinophils # 0.1 10^3/uL (0.0-0.8); Eosinophils % 2.7 %; Hematocrit 27.8 % (36-47); Lymphocytes # 1.2 10^3/uL (0.8-4.8); Lymphocytes % 32.8 %; Mean Corpuscular Hemoglobin 26.6 pg (27-33); Monocytes # 0.4 10^3/uL (0.2-0.9); Monocytes % 9.7 %; Neutrophils # 1.98 10^3/uL (1.8-7.7); Neutrophils % 53.2 %; Nucleated Red Blood Cells % 0 %; Platelet Count 142 10^3/cmm (157-399); Red Blood Count 3.35 10^6/uL (3.85-5.65); Red Cell Distribution Width 14.6 % (12.1-15.1); White Blood Count 3.72 10^3/uL (3.29-11.43)
[2024-07-20 22:35] LABS: Alanine Aminotransferase 49 U/L (0-33); Albumin Level 3.6 g/dL (3.5-5.2); Alkaline Phosphatase 140 U/L (35-105); Anion Gap 19.4 (5-19); Aspartate Amino Transferase 27 U/L (0-32); Blood Urea Nitrogen 4 mg/dL (6-20); Calcium 9.1 mg/dL (8.5-10.5); Carbon Dioxide 19 mmol/L (22-29); Chloride 101 mmol/L (98-107); Creatinine Clr Calc Pharmacy 233.2289; Globulin 3.4 g/dL (1.3-4.6); Glomerular Filtration Rate 182.7 mL/min (90-130); Glucose 189 mg/dL (65-115); Osmolality Calculated 284 mOsm/kg (285-295); Potassium 3.4 mmol/L (3.5-5.1); Sodium 136 mmol/L (136-145); Total Bilirubin 0.2 mg/dL (0.15-1.2)
[2024-07-21 02:05] VITALS: BP 138/67; PULSE 83; RESP 16; O2SAT 98
--- NOTE | 2024-07-21 02:38 | ED_ITS ---
HPI - Neuro Symptoms/Deficit 2 General: Chief Complaint: Neuro Symptoms/Deficit Stated Complaint: Face Asleep Time Seen by Provider: 07/21/24 02:20 History of Present Illness: 34-year-old female who has multiple chil dren at home and tested positive for influenza A. She has been sick for about 5 days with cough and congestion. She has had a headache and bodyaches. She said ongoing mucus drainage, and is beginning to get ear pain on the right side. She laid down for a nap last evening, and woke up with paresthesias to the right side of her face, particularly under her right eye, and in her temporal area. She says it feels like her face would feel after going to the dentist and having anesthesia for dental work. No other neurological symptoms. No language or vision problems. No weakness. No slurring of her speech. No fever. Related Data Home Medications ?Medication ?Instructions ?Recorded ?Confirmed escitalopram oxalate 20 mg tablet 20 mg PO DAILY 07/1212/21/23 alprazolam 1 mg tablet See Rx Instructions .Route . COMPLEX 12/21/23 12/21/23 insulin glargine 100 unit/mL (3 10 unit SUBCUT QAM 06/0312/21/23 mL) subcutaneous pen (Lantus Solostar U-100 Insulin) meloxicam 15 mg tablet 15 mg PO DAILY PRN HEADACHE 12/21/23 12/21/23 sitagliptin phosphate 100 mg 100 mg PO DAILY 12/21/23 12/21/23 tablet (Januvia) Previous Rx's ?Medication ?Instructions ?Recorded dulaglutide 1.5 mg/0.5 mL 1.5 mg (0.5 mL) SUBCUT Q7D # 2 mL 09/28/23 subcutaneous pen injector (Trulicity) promethazine 25 mg tablet 25 mg PO Q6H PRN headache #2 0 tabs 12/21/23 albuterol sulfate 90 mcg/actuation 2 inh inhalation Q4 H PRN shortness 07/03/24 aerosol inhaler of breath or wheezing #6.7 g taryn amoxicillin 875 mg-potassium 1 tab PO BID #20 tabs 04/04 clavulanate 125 mg tablet Allergies Allergy/AdvReac Type Severity Reaction Status Date / Time codeine Allergy Mild hives Verified 07/03/24 04:39 diazepam (From Valium) Allergy Unknown Verified 07/03/24 04:39 sertraline (From Zoloft) Allergy hives Verified 07/03/24 04:39 PFSH ED 2 PFSH: Medical History History of miscarriage Type 2 diabetes mellitus Anxiety with somatization Generalized anxiety disorder Major depressive disorder, recurrent severe without psychotic features Folliculitis COVID-19 Blood type A+ Surgical History No pertinent past surgical history Family History Grandfather Hypertension paternal Diabetes paternal Grandmother Stroke paternal Other Heart disease Denies family history of Colon cancer Ovarian cancer Hypercholesteremia Breast cancer Uterine cancer Thyroid disease Social History Smoking and tobacco/nicotine status: former use of tobacco/nicotine Alcohol intake: former Substance/Drug Use: never Physical Exam 2 Const: COMMON NORMALS: no acute distress GENERAL APPEARANCE: cooperative; not ill appearing and not frail appearing HENMT: COMMON NORMALS: normocephalic, atraumatic and Normal external nose present HEAD & SCALP: normocephalic and atraumatic FACE & SINUS: sinus tenderness maxillary (Right) and edema on the right (Minimal) NOSE: Normal external nose present and Abnormal mucous membranes and turbinates present (Right) boggy and erythematous TYMPANIC MEMBRANE: TM abnormal TM laterality: right Details: bulging and fluid behind TM (Clear) Eye: COMMON NORMALS: Equal, round and reactive pupils present and EOMs intact bilaterally PUPIL: Yes Equal, round and reactive pupils present Neck/C-Spine: GENERAL: Yes trachea midline Chest: CHEST: Yes Symmetrical chest wall rise Resp: COMMON NORMALS: normal respiratory effort, No retractions, No use of accessory muscles and clear to auscultation bilaterally AUSCULTATION: clear to auscultation bilaterally Cardio: COMMON NORMALS: regular rate and regular rhythm RATE: regular rate RHYTHM: regular rhythm Neuro: JIMI COMA SCALE: document GCS findings Jimi coma scale eye opening: Spontaneous Jimi coma scale verbal response: Orientated Jimi coma scale motor response: Obey commands Jimi coma scale total score: 15 S ENSORY EXAM: Yes extremities (intact) Psych: COMMON NORMALS: speech normal SPEECH: Yes normal speech Skin: COMMON NORMALS: no rashes or lesions noted GENERAL SKIN EXAM: no rashes or lesions noted Course 2 Vital Signs: Vital signs: Vital Signs Temperature 98.3 F 07/20/24 20:38 Pulse Rate 86 07/21/24 02:55 Respiratory Rate 16 07/21/24 02:05 Blood Pressure 126/71 07/21/24 02:55 Pulse Oximetry 99 07/21/24 02:55 Oxygen Delivery Me thod Room Air 07/21/24 02:05 MDM - Neuro Symptoms/Deficit Medical Decision Making This lady has right sided maxillary tenderness. She has read inflamed turbinates in her right nare. She has fluid behind her right TM. Facial paresthesias in the distribution of her infraorbital nerve. This is likely from right sided maxillary sinusitis acutely. Will elect to treat with antibiotics. She is . Will give a tapering dose of steroid as well. She is to follow-up as an outpatient, return for any new or worsening symptoms. Lab Data 07/20/24 21:59 07/20/24 21:59 Laboratory Results WBC 3.72 10^3/uL (3.29-11.43) 07/20/24 21:59 RBC 3.35 10^6/uL (3.85-5.65) L 07/20/24 21:59 Hgb 8.90 g/dL (11.27-16.99) L 07/20/24 21:59 Hct 27.8 % (36-47) L 07/20/24 21:59 MCV 83.0 fl (85-98) L 07/20/24 21:59 MCH 26.6 pg (27-33) L 07/20/24 21:59 MCHC 32.0 g/dL (30-55) 07/20/24 21:59 RDW 14.6 % (12.1-15.1) 07/20/24 21:59 Plt Count 142 10^3/cmm (157-399) L 07/20/24 21:59 MPV 10.0 fL (7.4-10.4) 07/20/24 21:59 Neut % (Auto) 53.2 % 07/20/24 21:59 Lymph % (Auto) 32.8 % 07/20/24 21:59 [place] % (Auto) 9.7 % 07/20/24 21:59 Eos % (Auto) 2.7 % 07/20/24 21:59 Baso % (Auto) 0.3 % 07/20/24 21:59 Neut # (Auto) 1.98 10^3/uL (1.8-7.7) 07/20/24 21:59 Lymph # (Auto) 1.2 10^3/uL (0.8-4.8) 07/20/24 21:59 [place] # (Auto) 0.4 10^3/uL (0.2-0.9) 07/20/24 21:59 Eos # (Auto) 0.1 10^3/uL (0.0-0.8) 07/20/24 21:59 Baso # (Auto) 0.0 10^3/uL (0.0-0.1) 07/20/24 21:59 Nucleated RBC % (auto) 0 % 07/20/24 21:59 Nucleated RBCs # 0.0 /100WBC 07/20/24 21:59 Sodium 136 mmol/L (136-145) 07/20/24 21:59 Potassium 3.4 mmol/L (3.5-5.1) L 07/20/24 21:59 Chloride 101 mmol/L (98-107) 07/20/24 21:59 Carbon Dioxide 19 mmol/L (22-29) L 07/20/24 21:59 Anion Gap 19.4 (5-19) H 07/20/24 21:59 BUN 4 mg/dL (6-20) L 07/20/24 21:59 Creatinine 0.4 mg/dL (0.5-0.9) L 07/20/24 21:59 GFR Calculation 182.7 mL/min (90-130) H 07/20/24 21:59 Glucose 189 mg/dL (65-115) H 07/20/24 21:59 Calculated Osmolality 284 mOsm/kg (285-295) L 07/20/24 21:59 Calcium 9.1 mg/dL (8.5-10.5) 07/20/24 21:59 Total Bilirubin 0.2 mg/dL (0.15-1.2) 07/20/24 21:59 AST 27 U/L (0-32) 07/20/24 21:59 ALT 49 U/L (0-33) H 07/20/24 21:59 Alkaline Phosphatase 140 U/L (35-105) H 07/20/24 21:59 Total Protein 7.0 g/dL (6.6-8.7) 07/20/24 21:59 Albumin 3.6 g/dL (3.5-5.2) 07/20/24 21:59 Globulin 3.4 g/dL (1.3-4.6) 07/20/24 21:59 No radiology studies performed this visit Discharge Plan Discharge Patient Disposition: Home Clinical Impression: Acute bacterial sinusitis Condition: Stable Prescriptions: New amoxicillin-pot clavulanate 875-125 mg tablet 1 tab PO BID Qty: 20 0RF No Action escitalopram oxalate 20 mg tablet 20 mg PO DAILY Trulicity 1.5 mg/0.5 mL pen injector 1.5 mg SUBCUT Q7D Qty: 2 0RF alprazolam 1 mg tablet See Rx Instructions .ROUTE .COMPLEX Rx Instructions: TAKE 0.5MG (1/2 TABLET) BY MOUTH IN THE MORNING AND 1 TABLET AT BEDTIME. Januvia 100 mg tablet 100 mg PO DAILY insulin glargine [Lantus Solostar U-100 Insulin] 100 unit/mL (3 mL) insulin pen 10 unit SUBCUT QAM meloxicam 15 mg tablet 15 mg PO DAILY PRN (Reason: HEADACHE ) Rx Instructions: do not take with ibuprofen or naproxen promethazine 25 mg tablet 25 mg PO Q6H PRN (Reason: headache) Qty: 20 0RF albuterol sulfate 90 mcg/actuation HFA aerosol inhaler 2 inh inhalation Q4H PRN (Reason: shortness of breath or wheezing) Qty: 6.7 0RF Rx Instructions: Please provide patient with a spacer Discharge Orders: Discharge ED (Routine); Ordered 07/21/24 Ordered By: Jose Castro Patient Instructions: Sinusitis (ED), Paresthesia (ED), Opioid Safety, Pain Management Activity Restrictions/Additional Instructions: Antibiotics as directed. Return for fever despite 2-3 doses of antibiotics, worsening numbness despite treatment, any other neurological problems such as speech or vision problems, weakness, etc. Call your doctor later this morning, let them know you were here. Print Language: Maori Coding Level of Care Code ED Business Support Specialist for Oskar Jean
[2024-07-21] MEDS: dexamethasone 10 mg/mL INJ 6 MG PO (02:54)
[2024-07-21] MEDS: amoxicillin-clav 875-125 mg Tablet 1 TAB PO (02:54)
[2024-07-21 02:55] VITALS: BP 126/71; PULSE 86; O2SAT 99
== END 2024-07-21 02:56 | disposition home or self-care (01) ==
PROVIDERS: Emergency Provider Emergency Medicine
DX: J01.80 Other acute sinusitis (principal); Z79.85 Long-term (current) use of injectable non-insulin antidiabetic drugs; Z79.4 Long term (current) use of insulin; Z87.891 Personal history of nicotine dependence; E11.9 Type 2 diabetes mellitus without complications
CPT/HCPCS: 36415; 80053; 85025; 99283; J1100

== ENCOUNTER 2024-08-02 22:07 | Outpatient (CLI) | payer MEDICAID, SELFPAY ==
[2024-08-02 22:05] VITALS: BMI 39.4
[2024-08-02 22:15] VITALS: BP 137/71; PULSE 90; TEMP 36.6
[2024-08-02 22:30] VITALS: BP 129/60; PULSE 82
[2024-08-02 22:45] VITALS: BP 137/67; PULSE 77
[2024-08-02 22:58] LABS: Bilirubin Urine Negative (Negative); Blood Urine Negative (Negative); Glucose Urine UA Negative (Normal); Ketones Urine Trace (Negative); Leukocyte Esterase Urine Negative (Negative); Nitrate Urine Negative (Negative); Protein Urine Trace (Negative); Specific Gravity, Urine 1.023 (1.005-1.030); Urine Appearance Cloudy (CLEAR); Urine Color Yellow (Yellow); pH Urine 6.5 (5-7)
[2024-08-02 23:00] VITALS: BP 123/59; PULSE 82
[2024-08-02 23:14] LABS: Bacteria Urine 2+ /hpf; RBC Urine 0-4 /hpf (0-2); Squamous Epithelial Cell Urine 25-40 /hpf (0-5); WBC Urine 0-4 /hpf (0-5)
[2024-08-02 23:15] LABS: Add Urine Culture? No
[2024-08-03] VITALS (7 sets, daily range): BP systolic 118–126; BP diastolic 56–59; PULSE 75–87; RESP 16; TEMP 36.4; O2SAT 100
[2024-08-03] MEDS: lactated ringers 1,000 ML 999 ML IV (00:10)
--- NOTE | 2024-08-03 01:00 | PC.NURSE ---
This nurse notified pt that Dr. Davila had ordered terbutaline. While educating pt that medication may increase maternal heart rate and this is an expected result, the pt stated oh no, no, I will not be doing that. I'd rather just have the baby. This nurse explained the dangers of delivering at 24 weeks gestation and the possible affects of cervical dilation with placenta previa. The pt stated I cant even handle albuterol or anything like that. my anxiety is too bad for stuff like that. I'll just do the fluids this nurse told the pt she would report this to the doctor and like her know what she says.
--- NOTE | 2024-08-03 01:12 | PC.NURSE ---
Dr. Davila requested this nurse ask the pt if she would accept procardia PO instead of terbutaline. This nurse asked the pt and explained that she would not feel the increased heart rate with the procardia that she would with the terbutaline since that was her concern with that medication. The pt stated no, i'll just do the fluids. I feel better. I think I was just dehydrated. This was reported to Dr. Davila.
== END 2024-08-03 01:51 | disposition home or self-care (01) ==
LOC: OPOB 22:08 → OBGYN 22:09
PROVIDERS: Visit Provider Obstetrics & Gynecology
DX: O26.899 Other specified pregnancy related conditions, unspecified trimester (principal); Z3A.00 Weeks of gestation of pregnancy not specified; R10.9 Unspecified abdominal pain
CPT/HCPCS: 81001; 99211; J7120

== ENCOUNTER 2024-10-29 19:28 | Outpatient (CLI) | payer MEDICAID, SELFPAY ==
[2024-10-29] VITALS (7 sets, daily range): BP systolic 136–151; BP diastolic 69–87; PULSE 80–90; RESP 16; TEMP 35.9; O2SAT 99; BMI 42.0
== END 2024-10-29 20:55 | disposition home or self-care (01) ==
LOC: OPOB 19:28 → OBGYN 19:29
PROVIDERS: Visit Provider Family Medicine
DX: O26.899 Other specified pregnancy related conditions, unspecified trimester (principal); Z3A.00 Weeks of gestation of pregnancy not specified; R10.9 Unspecified abdominal pain
CPT/HCPCS: 59025; 99211

== ENCOUNTER 2024-11-09 21:32 | Emergency (ER) | payer MEDICAID, SELFPAY ==
[2024-11-09 21:34] VITALS: BP 165/93; PULSE 88; RESP 16; TEMP 36.8; O2SAT 98; BMI 37.8
[2024-11-09 22:01] VITALS: BP 160/89; PULSE 79; RESP 16; O2SAT 96
--- NOTE | 2024-11-09 22:13 | CTR_ITS ---
PROCEDURE INFORMATION: Exam: CT Head Without Contrast Exam date and time: 11/09/2024 10:19 PM Age: 34 years old Clinical indication: Pain; Headache; C/O GARCIA with hypertension TECHNIQUE: Imaging protocol: Computed tomography of the head without contrast. Radiation optimization: All CT scans at this facility use at least one of these dose optimization techniques: automated exposure control; mA and/or kV adjustment per patient size (includes targeted exams where dose is matched to clinical indication); or iterative reconstruction. COMPARISON: CT head wo con* [id number] 12/21/2023 6:38 AM RADIATION DOSE METRICS: Total DLP (mGy-cm): 1007.28 FINDINGS: Brain: Normal. No hemorrhage. Unremarkable white matter. No mass effect. Cerebral ventricles: No ventriculomegaly. Paranasal sinuses: Visualized sinuses are unremarkable. No fluid levels. Mastoid air cells: Visualized mastoid air cells are well aerated. Bones: Unremarkable. No acute fracture. Soft tissues: Unremarkable. CT/CT head wo con* [id number] IMPRESSION: No large territorial infarct or intracranial bleed.
[2024-11-09 22:18] LABS: Basophils % 0.4 %; Eosinophils # 0.3 10^3/uL (0.0-0.8); Eosinophils % 3.2 %; Hematocrit 34.1 % (36-47); Lymphocytes # 1.9 10^3/uL (0.8-4.8); Lymphocytes % 24.7 %; Mean Corpuscular Hemoglobin 26.8 pg (27-33); Mean Platelet Volume 9.5 fL (7.4-10.4); Monocytes # 0.4 10^3/uL (0.2-0.9); Monocytes % 5.4 %; Neutrophils # 4.99 10^3/uL (1.8-7.7); Neutrophils % 64.4 %; Nucleated Red Blood Cells % 0 %; Platelet Count 271 10^3/cmm (157-399); Red Blood Count 4.06 10^6/uL (3.85-5.65); Red Cell Distribution Width 14.5 % (12.1-15.1); White Blood Count 7.76 10^3/uL (3.29-11.43)
[2024-11-09 22:29] LABS: Alanine Aminotransferase 63 U/L (0-33); Albumin Level 4.2 g/dL (3.5-5.2); Alkaline Phosphatase 146 U/L (35-105); Anion Gap 19.4 (5-19); Aspartate Amino Transferase 53 U/L (0-32); Blood Urea Nitrogen 9 mg/dL (6-20); Calcium 9.5 mg/dL (8.5-10.5); Carbon Dioxide 23 mmol/L (22-29); Chloride 101 mmol/L (98-107); Creatinine Clr Calc Pharmacy 151.7017; Globulin 3.8 g/dL (1.3-4.6); Glomerular Filtration Rate 114.4 mL/min (90-130); Glucose 138 mg/dL (65-115); Magnesium 2.2 mg/dL (1.7-2.3); Osmolality Calculated 291 mOsm/kg (285-295); Potassium 3.4 mmol/L (3.5-5.1); Sodium 140 mmol/L (136-145); Total Bilirubin 0.3 mg/dL (0.15-1.2)
[2024-11-09] MEDS: labetalol 5 mg/mL SDV 20mL 10 MG IVP (22:42)
[2024-11-09] MEDS: magnesium sulfate premix 2 GM/50 ML PIGGYBACK IV (22:42)
[2024-11-09 22:46] VITALS: BP 156/88; PULSE 88; RESP 16; O2SAT 94
[2024-11-09] MEDS: NIFEdipine 10 mg Capsule 20 MG PO (22:59)
[2024-11-09 23:06] LABS: Bilirubin Urine Negative (Negative); Blood Urine 3+ (Negative); Glucose Urine UA Negative (Normal); Ketones Urine Negative (Negative); Leukocyte Esterase Urine 2+ (Negative); Nitrate Urine Negative (Negative); Protein Urine Trace (Negative); Specific Gravity, Urine 1.017 (1.005-1.030); Urine Appearance Cloudy (CLEAR); Urine Color Yellow (Yellow); Urobilinogen Urine 0.2 mg/dL (Negative); pH Urine 5.5 (5-7)
[2024-11-09 23:07] VITALS: BP 150/80; PULSE 74; RESP 16; O2SAT 97
--- NOTE | 2024-11-09 23:16 | ED_ITS ---
HPI - Headache 2 General: Chief Complaint: Headache Stated Complaint: HEADACHE Time Seen by Provider: 11/09/24 21:38 History of Present Illness: 34-year-old female who is 1 week postpar zander from . She did not have gestational hypertension or preeclampsia evidently during her . She complains of 3 days of headache, generalized. She was told that her child's bilirubin check today, that she may need to get checked out regarding her headache. She checked her blood pressure at home, and it was in the 160s systolic. It got as high as the 180s systolic with repeated checking. She became concerned, and came in for evaluation. She states that besides being stressed due to the new child, and having a mild case of the baby blues , she does not know why her blood pressure is high. She is not suicidal whatsoever. Related Data Home Medications ?Medication ?Instructions ?Recorded ?Confirmed insulin glargine 100 unit/mL (3 10 unit SUBCUT QAM 06/0311/09/24 mL) subcutaneous pen (Lantus Solostar U-100 Insulin) Previous Rx's ?Medication ?Instructions ?Recorded nifedipine 30 mg tablet,extended 30 mg PO DAILY #30 ta bs 11/09/24 release 24 hr (Procardia XL) Allergies Allergy/AdvReac Type Severity Reaction Status Date / Time codeine Allergy Mild hives Verified 11/09/24 15:58 diazepam (From Valium) Allergy Unknown Verified 11/09/24 15:58 sertraline (From Zoloft) Allergy hives Verified 11/09/24 15:58 PFSH ED 2 PFSH: Medical History History of miscarriage Type 2 diabetes mellitus Anxiety with somatization Generalized anxiety disorder Major depressive disorder, recurrent severe without psychotic features Folliculitis COVID-19 Blood type A+ Surgical History No pertinent past surgical history Family History Grandfather Hypertension paternal Diabetes paternal Grandmother Stroke paternal Other Heart disease Denies family history of Colon cancer Ovarian cancer Hypercholesteremia Breast cancer Uterine cancer Thyroid disease Social History (Reviewed 11/09/24 @ 16:48 by GAYATHRI Richardson Smoking and tobacco/nicotine status: never used tobacco/nicotine Alcohol intake: former Substance/Drug Use: never Physical Exam 2 Const: COMMON NORMALS: no acute distress GENERAL APPEARANCE: cooperative; not ill appearing and not frail appearing HENMT: COMMON NORMALS: normocephalic, atraumatic and Normal external nose present HEAD & SCALP: normocephalic and atraumatic FACE & SINUS: normal facial exam and face symmetric NOSE: Normal external nose present Eye: COMMON NORMALS: Equal, round and reactive pupils present and EOMs intact bilaterally PUPIL: Yes Equal, round and reactive pupils present Neck/C-Spine: GENERAL: Yes trachea midline Chest: CHEST: Yes Symmetrical chest wall rise Resp: COMMON NORMALS: normal respiratory effort, No retractions, No use of accessory muscles and clear to auscultation bilaterally AUSCULTATION: clear to auscultation bilaterally Cardio: COMMON NORMALS: regular rate and regular rhythm RATE: regular rate RHYTHM: regular rhythm GI: COMMON NORMALS: Normal to inspection, nondistended, normoactive bowel sounds present Extremity: COMMON NORMALS: no pedal edema Neuro: JIMI COMA SCALE: document GCS findings Jimi coma scale eye opening: Spontaneous Jimi coma scale verbal response: Orientated [place] coma scale motor response: Obey commands Jimi coma scale total score: 15 S ENSORY EXAM: Yes extremities (intact) Psych: COMMON NORMALS: speech normal SPEECH: Yes normal speech Skin: COMMON NORMALS: no rashes or lesions noted GENERAL SKIN EXAM: no rashes or lesions noted Course 2 Vital Signs: Vital signs: Vital Signs Temperature 98.3 F 11/09/24 21:34 Pulse Rate 81 11/10/24 00:29 Respiratory Rate 16 11/10/24 00:29 Blood Pressure 152/81 11/10/24 00:29 Pulse Oximetry 96 11/10/24 00:29 Oxygen Delivery Me thod Room Air 11/09/24 21:34 MDM - Headache Medical Decision Making Laboratory shows hemoglobin of 11. Potassium is 3.4. Other laboratory is normal including magnesium. She is given IV magnesium sulfate in the interim, nifedipine orally, which she had taken prior and has reduced her blood pressure to some degree, and IV labetalol. Current blood pressure is 150/80. Head CT result is pending and so is urinalysis. Head CT is negative. Urinalysis only shows trace protein. It is contaminated otherwise in terms of infection. Headache is improved. She will be discharged. Will increase her dose of nifedipine from 30-60. She knows to return for any worsening symptoms. She will check her blood pressure twice daily. Lab Data 11/09/24 21:12 11/09/24 21:[address] 11/09/24 22:13 IMPRESSION: No large territorial infarct or intracranial bleed. Laboratory Results WBC 7.76 10^3/uL (3.29-11.43) 11/09/24 21:12 RBC 4.06 10^6/uL (3.85-5.65) 11/09/24 21:12 Hgb 10.90 g/dL (11.27-16.99) L 11/09/24 21:12 Hct 34.1 % (36-47) L 11/09/24 21:12 MCV 84.0 fl (85-98) L 11/09/24 21:12 MCH 26.8 pg (27-33) L 11/09/24 21:12 MCHC 32.0 g/dL (30-55) 11/09/24 21:12 RDW 14.5 % (12.1-15.1) 11/09/24 21:12 Plt Count 271 10^3/cmm (157-399) 11/09/24 21:12 MPV 9.5 fL (7.4-10.4) 11/09/24 21:12 Neut % (Auto) 64.4 % 11/09/24 21:12 Lymph % (Auto) 24.7 % 11/09/24 21:12 [place] % (Auto) 5.4 % 11/09/24 21:12 Eos % (Auto) 3.2 % 11/09/24 21:12 Baso % (Auto) 0.4 % 11/09/24 21:12 Neut # (Auto) 4.99 10^3/uL (1.8-7.7) 11/09/24 21:12 Lymph # (Auto) 1.9 10^3/uL (0.8-4.8) 11/09/24 21:12 [place] # (Auto) 0.4 10^3/uL (0.2-0.9) 11/09/24 21:12 Eos # (Auto) 0.3 10^3/uL (0.0-0.8) 11/09/24 21:12 Baso # (Auto) 0.0 10^3/uL (0.0-0.1) 11/09/24 21:12 Nucleated RBC % (auto) 0 % 11/09/24 21:12 Nucleated RBCs # 0.0 /100WBC 11/09/24 21:12 Sodium 140 mmol/L (136-145) 11/09/24 21:12 Potassium 3.4 mmol/L (3.5-5.1) L 11/09/24 21:12 Chloride 101 mmol/L (98-107) 11/09/24 21:12 Carbon Dioxide 23 mmol/L (22-29) 11/09/24 21:12 Anion Gap 19.4 (5-19) H 11/09/24 21:12 BUN 9 mg/dL (6-20) 11/09/24 21:12 Creatinine 0.6 mg/dL (0.5-0.9) 11/09/24 21:12 GFR Calculation 114.4 mL/min (90-130) 11/09/24 21:12 Glucose 138 mg/dL (65-115) H 11/09/24 21:12 Calculated Osmolality 291 mOsm/kg (285-295) 11/09/24 21:12 Calcium 9.5 mg/dL (8.5-10.5) 11/09/24 21:12 Magnesium 2.2 mg/dL (1.7-2.3) 11/09/24 21:12 Total Bilirubin 0.3 mg/dL (0.15-1.2) 11/09/24 21:12 AST 53 U/L (0-32) H 11/09/24 21:12 ALT 63 U/L (0-33) H 11/09/24 21:12 Alkaline Phosphatase 146 U/L (35-105) H 11/09/24 21:12 Total Protein 8.0 g/dL (6.6-8.7) 11/09/24 21:12 Albumin 4.2 g/dL (3.5-5.2) 11/09/24 21:12 Globulin 3.8 g/dL (1.3-4.6) 11/09/24 21:12 Urine Color Yellow (Yellow) 11/09/24 22:44 Urine Appearance Cloudy (CLEAR) A 11/09/24 22:44 Urine pH 5.5 (5-7) 11/09/24 22:44 Ur Specific [place] 1.017 (1.005-1.030) 11/09/24 22:44 Urine Protein Trace (Negative) A 11/09/24 22:44 Urine Glucose (UA) Negative (Normal) 11/09/24:44 Urine Ketones Negative (Negative) 11/09/24 22:44 Urine Blood 3+ (Negative) A 11/09/24 22:44 Urine Nitrate Negative (Negative) 11/09/24:44 Urine Bilirubin Negative (Negative) 11/09/24:44 Urine Urobilinogen 0.2 mg/dL (Negative) 11/09/24:44 Ur Leukocyte Esterase 2+ (Negative) A 11/09/24 22:44 Urine RBC 6-10 /hpf (0-2) 11/09/24 22:44 Urine WBC 25-40 /hpf (0-5) H 11/09/24 22:44 Ur Squamous Epith Cells 5-10 /hpf (0-5) H 11/09/24 22:44 Ur Renal Epithelial Cell 3-5 /hpf 11/09/24 22:44 Amorphous Sediment Not Reportable 11/09/24 22:44 Urine Bacteria 4+ /hpf (NONE) H 11/09/24 22:44 Hyaline Casts 3-5 /lpf 11/09/24 22:44 All radiology interpretation(s) finalized by discharge Discharge Plan Discharge Patient Disposition: Home Clinical Impression: Hypertension in , condition Condition: Stable Prescriptions: No Action nifedipine [Procardia XL] 30 mg tablet extended release 24hr 30 mg PO DAILY Qty: 30 0RF insulin glargine [Lantus Solostar U-100 Insulin] 100 unit/mL (3 mL) insulin pen 10 unit SUBCUT QAM Discharge Orders: Discharge ED (Routine); Ordered 11/10/24 Ordered By: Jose Castro Patient Instructions: Hypertension During (ED), Opioid Safety, Pain Management Activity Restrictions/Additional Instructions: Increase your nifedipine dosage to 60 mg or 2 tablets at once daily. Follow-up with your doctor. You are not spilling significant protein in your urine currently. Check your blood pressure twice daily, but no more than that. Return for worsening headache, swelling of the feet, inability to control blood pressure above 160/110, other concerning symptoms. Print Language: French Coding Level of Care Code ED Publishing Specialist for Oskar Jean
[2024-11-09 23:44] LABS: UA Manual Slide Review YES; UA Slide Review UA Slide Review Perf
[2024-11-09 23:45] LABS: Bacteria Urine 4+ /hpf; WBC Urine 25-40 /hpf (0-5)
[2024-11-10 00:29] VITALS: BP 152/81; PULSE 81; RESP 16; O2SAT 96
== END 2024-11-10 00:29 | disposition home or self-care (01) ==
PROVIDERS: Emergency Provider Emergency Medicine
DX: O16.5 Unspecified maternal hypertension, complicating the puerperium (principal); Z79.4 Long term (current) use of insulin; E11.9 Type 2 diabetes mellitus without complications; R51.9 Headache, unspecified; Z98.890 Other specified postprocedural states
CPT/HCPCS: 70450; 80053; 81000; 81001; 83735; 85025; 96365; 96366; 96375; 99285; J3475; J3490; J9999

== ENCOUNTER 2025-02-22 22:46 | Emergency (ER) | payer MEDICAID, SELFPAY ==
--- OUTSIDE RECORDS SUMMARY | 2021-03-07 10:58 | XMS_ITS | Continuity of Care Document ---
Author Organization [facility] Address [id number] [address] Phone Care Team Providers Care Keno Writer/Runner Name Role Phone Sean Harper DDS Unavailable Unavailable Allergies, Adverse Reactions, Alerts Substance Reaction Status Criticality codeine Active No Information SERTRALINE HCL Active No Informatio n Medications Medication Instructions Dosage Effective Dates (start - stop) Status Comments Alprazolam Intensol 1 mg/mL oral concentrate take 0.25 milliliter by oral route 3 times every day mixed with water, juice, soda, soda-like beverage, applesauce or pudding 0.25 MG - Active clindamycin HCl 150 mg capsule take 1 capsule by oral route every 6 hours 150 MG - Active hydrocodone 7.5 mg-acetaminophen 325 mg tablet take 1 tablet by oral route every 6 hours as needed for pain 1.00 tablet - Active ibuprofen 200 mg capsule take 1 capsule by oral route every 6 hours as needed 200 MG - Active Vitamin C 500 mg capsule,extended release - Active Tylenol 325 mg capsule - Active zinc 50 mg tablet - Active citalopram 10 mg/5 mL oral solution take 10 milliliter by oral route every day 20 MG - Active biotin 1 mg capsule - Active Procedures Procedure Date Limited Oral Evaluation Problem Focused Intraoral Periapical First Film Extraction, Erupted Tooth Or Exposed Suzy t (Elevati Advance Directives Directive Yes / No Effective Date File Name No Information Encounters Encounter Description Practice Location Reason(s) For Visit Diagnoses Date Provider Providers Copied on Encounter [facility], [id number] [facility], [place], [place], [id number], [place] tel:[phone] [facility] No Information Leroy Estrada. [address] [place], [address], [place]. tel:[phone] [facility], [id number] [facility], [place], [place], [id number], [place] tel:[phone] [facility] Encounter for dental exam and cleaning w/o abnormal findings Brianne Gamino. [address], [place], [id number], [place]. tel:[phone] Referring Provider: Stevenson Decker, [address] [place], [address]. tel:[phone] Family History Family Member Type Diagnosis Age At Onset No Information Payers Payer name Insurance type Covered alliance party ID Bassem jimeneznina(s) D [employer] CI [id number] Social History Type Description Quantity Date Captured Comments Sex Female Smoking Status No Information Chief Complaint And Reason For Visit No Information Reason For Referral Reason For Referral No Information History Of Present Illness Encounter Date Complaint History Of Prese nt Illness No Information Functional Status Date Functional Assessmen t No Information Instructions Date Instruction Additional Infor mation No Information Assessments Type Assessment Date No Information Patient Care Teams Name Effective Dates (start - stop) Status Members No Information
[2025-02-22 22:55] VITALS: BP 146/93; PULSE 90; RESP 16; TEMP 36.8; BMI 39.4
== END 2025-02-23 01:30 | disposition left against medical advice (07) ==
LOC: ER 22:51
PROVIDERS: Physician Assistant; Emergency Provider Family Medicine
DX: Z53.21 Procedure and treatment not carried out due to patient leaving prior to being seen by health care provider (principal); R73.9 Hyperglycemia, unspecified
CPT/HCPCS: 36416; 82962

== ENCOUNTER → 2025-02-23 15:42 | Outpatient (BNVA) | payer MEDICAID, SELFPAY | DX: E11.9 Type 2 diabetes mellitus without complications (principal) | CPT/HCPCS: 80053; 83036; 85025 ==